=== PATIENT | male | born 1965 | race Hispanic/Latino ===

== ENCOUNTER 2017-01-08 22:23 | Observation (INO) | payer BC, MEDICAID, OTHER ==
[2017-01-08 22:28] VITALS: BMI 38.7
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
[2017-01-08] MEDS: Morphine 2 mg/ml ISec IVP STA (23:32)
[2017-01-08] MEDS: Nitroglycerin 2% Ointment Foilpak UD TOP STA (23:33)
[2017-01-08 23:56] LABS: HEMATOCRIT 37.1 % (42.0-52.0); MEAN CORPUSCULAR HEMOGLOBIN 28.2 pg (25.0-35.0); MEAN PLATELET VOLUME 9.9 fl (7.0-11.0); RED CELL DISTRIBUTION WIDTH 14.8 % (11.5-14.5); WHITE BLOOD COUNT 14.9 10^3/ul (4.5-11.0)
[2017-01-09] LABS: ALKALINE PHOSPHATASE 124 U/L (38-133); ALT/SGPT 27 U/L (7-56); AST/SGOT 30 U/L (15-59); BLOOD UREA NITROGEN 29 mg/dL (7-21); CALCIUM 9.8 mg/dL (8.4-10.5); CARBON DIOXIDE 29 mmol/L (21-33); CHLORIDE 98 mmol/L (98-107); GFR AFRICAN-AMERICAN > 60; GLUCOSE,RANDOM 104 mg/dL (70-110); POTASSIUM 3.7 mmol/L (3.6-5.0); SODIUM 139 mmol/L (132-148); TOTAL PROTEIN 8.6 g/dL (5.8-8.3)
[2017-01-09 00:01] LABS: INR 1.02 (0.93-1.08); PARTIAL THROMBOPLASTIN TIME 28.9 Seconds (23.7-30.8)
[2017-01-09 00:10] LABS: TROPONIN I 0.02 ng/mL
[2017-01-09] MEDS: Morphine 2 mg/ml ISec IVP STA ×3 (00:27→08:12)
[2017-01-09] MEDS: HYDROmorphone 2 mg/ml ISec IVP STA ×6 (01:12→08:09)
[2017-01-09 01:26] LABS: URINE BILIRUBIN NEGATIVE (NEGATIVE); URINE BLOOD SMALL (NEGATIVE); URINE GLUCOSE (UA) NEGATIVE (NEGATIVE); URINE KETONE NEGATIVE (NEGATIVE); URINE LEUKOCYTE ESTERASE NEGATIVE Leu/uL (NEGATIVE); URINE PROTEIN 100 mg/dL (<30 mg/dL)
[2017-01-09 01:33] LABS: URINE APPEARANCE SL CLOUDY (CLEAR); URINE COLOR YELLOW (YELLOW)
[2017-01-09 01:35] LABS: URINE BACTERIA FEW (NEG)
[2017-01-09] MEDS: Sodium Chloride 0.9% 1,000 ML IV STA ×2 (04:22→08:11)
[2017-01-09] MEDS ORDERED: Iodixanol 320 MG/ML 100 ML BOTTLE IV ONE (04:25)
--- NOTE | 2017-01-09 05:40 | CT ---
EXAM: CT Angiography Chest With Intravenous Contrast CLINICAL HISTORY: 51 years old, male; Signs and symptoms; Shortness of breath; Additional info: SOB TECHNIQUE: Axial computed tomographic angiography images of the chest with intravenous contrast using pulmonary embolism protocol. This CT exam was performed using one or more of the following dose reduction techniques: automated exposure control, adjustment of the mA and/or kV according to patient size, and/or use of iterative reconstruction technique. MIP reconstructed images were created and reviewed. Coronal and sagittal reformatted images were created and reviewed. CONTRAST: 96 mL of visi administered intravenously. EXAM DATE/TIME: 01/09/2017 4:16 AM COMPARISON: Recent chest radiographs of 01/08/2017 FINDINGS: LIMITATIONS: Exam is limited by mild respiratory motion artifact. PULMONARY ARTERIES: Exam is somewhat limited for the detection of pulmonary emboli secondary to respiratory motion. Allowing for this, no definite pulmonary emboli are seen. AORTA: No evidence of aortic dissection. LUNGS: No evidence of significant focal consolidation/infiltrate in the lungs, allowing for motion artifact. No evidence of diffuse pulmonary vascular congestion. PLEURAL SPACE: No pneumothorax or pleural effusions seen. HEART: No evidence of significant pericardial effusion. BONES/JOINTS: No acute bony abnormality identified. SOFT TISSUES: No acute abnormality of the visualized soft tissues identified. LYMPH NODES: No evidence of diffuse lymphadenopathy. IMPRESSION: - No definite pulmonary embolism or other significant acute abnormality in the chest. Exam is somewhat limited by motion. - See above for remaining findings.
[2017-01-09] MEDS: Morphine 4 mg/ml ISec IVP STA ×2 (05:47→08:11)
[2017-01-09] MEDS: DiphenhydrAMINE 50 mg/ml Inj IVP ONE ×2 (06:36→08:07)
[2017-01-09] MEDS ORDERED: DiphenhydrAMINE 50 mg/ml Inj IVP ONE (07:16)
--- NOTE | 2017-01-09 08:00 | RAD ---
HISTORY: chest pain COMPARISON: Comparison made with prior study 08/22/2015 FINDINGS: LUNGS: Poor inspiration with low lung volumes, mild crowded bronchovascular markings and mild bibasilar atelectasis. PLEURA: No significant pleural effusion identified, no pneumothorax apparent. CARDIOVASCULAR: Heart appears enlarged. OSSEOUS STRUCTURES: No significant abnormalities. VISUALIZED UPPER ABDOMEN: Normal. OTHER FINDINGS: None. IMPRESSION: Poor inspiration with low lung volumes, mild crowded bronchovascular markings and mild bibasilar atelectasis.
[2017-01-09] MEDS: Nitroglycerin 2% Ointment Foilpak UD TOP STA (08:12)
[2017-01-09] MEDS: Amoxicillin-Clav 875-125 mg Tab PO SCH ×2 (09:26→17:12)
[2017-01-09] MEDS: Naproxen 550 mg Tab PO SCH ×2 (09:26→17:12)
--- NOTE | 2017-01-09 10:04 | HP ---
HISTORY OF PRESENT ILLNESS: The patient is a 51-year-old man with past medical history of nonobstruc tive CAD, hypertension and opiate dependence (reports near daily 40 bags per day of heroin) who prese nted to the Emergency Department with a 1-2 day history of severe left-sided chest wall pain. The pa richardson states that prior to onset of pain. He was lifting heavy garbage cans at home when he develope d the aforementioned pain. The patient reports the pain is a 10/10 in nature and describes it as a s harp stabbing pain. He denies radiation of the pain or dyspnea associated with his chest discomfort. Given the fact that his pain did not resolve with [id number] analgesics, he presented to the Emergency Department for further evaluation. Upon arrival to the ED, he was noted to be tachycardic with a pulse of 102 and hypertensive with a blood pressure of 161/115. He received multiple doses of intravenous Dilaudid with minimal resolution of his chest discomfort. The patient also underwent a CT of the chest, abdomen and pelvis which demonstrated no acute pathology. Initial laboratory studie s also demonstrated leukocytosis with a WBC of 14.9 and a negative initial troponin. Given his persi stent pain, the patient was admitted to the remote telemetry [place] for observation, so as to rule out acute coronary syndrome. PAST MEDICAL HISTORY: As per HPI. PAST SURGICAL HISTORY: As per HPI. MEDICATIONS: Lopressor 25 mg p.o. b.i.d., Diovan 320 mg p.o. daily, aspirin 81 mg p.o. daily and Lip itor 40 mg p.o. daily. ALLERGIES: No known drug allergies. FAMILY HISTORY: Significant for hypertension. SOCIAL HISTORY: The patient reports former tobacco use and active daily alcohol use. The patient al so has a history of opiate dependence reporting a 40 bag per day use of heroin and states his last us e was approximately 2-3 weeks ago. REVIEW OF SYSTEMS: A 14*point is negative except as per HPI. PHYSICAL EXAMINATION: VITAL SIGNS: Temperature 99.6, pulse 90, blood pressure 178/60, respiratory rate 18, oxygen saturati on 100% on room air. GENERAL: No apparent distress. HEENT: EOMI, PERRLA. No scleral icterus, no conjunctival pallor. NECK: No JVD, no bruits. LUNGS: Clear to auscultation. CARDIOVASCULAR: Regular rate and rhythm. Normal S1 and S2. CHEST: Tenderness to palpation along the left sternal border and left lower costal margin. ABDOMEN: Normoactive bowel sounds, soft, nontender, nondistended. EXTREMITIES: No edema. NEUROLOGIC: Awake, alert and oriented x 3. No focal motor deficits. No tremors. SKIN: No lesions to the chest wall. LABORATORY DATA: WBC 14.9, hemoglobin 12.6, hematocrit 37, platelets 339. Chemistry reviewed and la rgely unremarkable. IMAGING STUDIES: 1. Chest x-ray, which demonstrates poor inspiration with low lung volumes, but otherwise no acute pa thology. 2. CT of the abdomen and pelvis demonstrates no acute pathology. 3. CT of the chest with IV contrast demonstrates no evidence of pulmonary embolism. ASSESSMENT: The patient is a 51-year-old man with past medical history of nonobstructive coronary ar parker disease, hypertension and opiate dependence who presented to the Emergency Department with a 1-2 day history of progressively worsening left-sided chest wall discomfort which started after heavy li fting. PLAN: 1. Chest pain, low suspicion for acute coronary syndrome. The patient's initial EKG demonstrates no acute ST-T wave changes and his initial troponin is unremarkable. Given the fact that the patient's pain is reproducible, the etiology is likely costochondritis. Will start Naprosyn [address] Ramírez of cardiology has been consulted for further evaluation and recommendations. 2. Nonobstructive coronary artery disease. Will resume Lopressor 25 mg p.o. b.i.d., aspirin 81 mg p .o. daily and Lipitor 40 mg p.o. daily. 3. Hypertension. Continue with Lopressor 25 mg p.o. b.i.d. and Diovan 320 mg p.o. daily. 4. Opiate dependence. The patient states that his last use was approximately 3 weeks ago and he cordoba s not appear to be actively withdrawing from opiates. 5. Leukocytosis, etiology may be secondary to stress response versus possible dental infection as th e patient states that approximately 3 or 4 days ago he developed significant right upper dental pain and did not seek dental evaluation. Will start Augmentin 875 mg p.o. b.i.d. 6. Prophylaxis. Gastrointestinal prophylaxis not indicated as patient is eating. Deep venous throm bosis prophylaxis not indicated as patient is ambulatory. CODE STATUS: Full code. Jayy Dodson MD cc: [id number] TT: 01/09/2017 10:03:50 en
--- NOTE | 2017-01-09 11:04 | CT ---
PROCEDURE: CT Abdomen and Pelvis without intravenous contrast HISTORY: left flank pain COMPARISON: None. TECHNIQUE: CT scan of the abdomen and pelvis was performed without administration of oral or intravenous contrast. Radiation dose: Total exam DLP = 1354.47 mGy-cm. This CT exam was performed using one or more of the following dose reduction techniques: Automated exposure control, adjustment of the mA and/or kV according to patient size, and/or use of iterative reconstruction technique. FINDINGS: LOWER THORAX: The lung bases are clear. LIVER: The liver is normal in size. No ductal dilatation. GALLBLADDER AND BILE DUCTS: The gallbladder is distended. There are small gallstones without wall thickening or pericholecystic fluid. PANCREAS: Normal in size. No gross lesion or ductal dilatation. SPLEEN: Normal in size. ADRENALS: Normal in size without discrete nodule. KIDNEYS AND URETERS: The right kidney is normal in size without nephrolithiasis or hydronephrosis. There is a 2.0 cm parapelvic cyst in the right lower pole. The left kidney is not visualized. VASCULATURE: No aortic aneurysm. BOWEL: The small bowel loops are normal in caliber. APPENDIX: Normal appendix. PERITONEUM: No free fluid. No free air. LYMPH NODES: No enlarged lymph nodes. BLADDER: Unremarkable. REPRODUCTIVE: Unremarkable. BONES: No acute fracture. There is moderate degenerative osteoarthrosis in both hip joints, worse on the right. Mild multilevel degenerative disc disease in the thoracic and lumbar spine. OTHER FINDINGS: None. IMPRESSION: Gallbladder distention and cholelithiasis. Please correlate clinically for acute cholecystitis. If clinically indicated, a right upper quadrant ultrasound may be performed. Absent left kidney. Patient's clinician was paged at 10:30 a.m. to discuss the above findings.
[2017-01-09 18:20] VITALS: RESP 20; O2SAT 98
--- NOTE | 2017-01-09 18:33 | CON ---
DATE: 01/09/2017 HISTORY OF PRESENT ILLNESS: The patient is a 51-year-old male who complains of pleuritic-like chest pain after lifting heavy garbage cans at home. The pain is worse on movement of his upper chest and on deep inspiration. PAST MEDICAL HISTORY: Notable for hypertension. The patient underwent cardiac catheterization 2 yea rs ago for again chest pain which revealed no significant coronary disease. The patient denies smoking. REVIEW OF SYSTEMS: A 14-point review of systems is free of cardiac symptomatology. PHYSICAL EXAMINATION: VITAL SIGNS: Blood pressure is 178/60, the heart rate is in the 90s. NECK: Negative JVD. LUNGS: Without rales. HEART: Reveals S1, S2. EXTREMITIES: Without edema. EKG is unremarkable. LABORATORIES: Troponins are negative so far. CT scan shows no aortic dissection. No pulmonary embolism. IMPRESSION: 1. Atypical chest pain, likely chest wall pain. 2. The patient was started on nonsteroidal anti-inflammatories. 3. History of hypertension. 4. Obesity. PLAN: Given these findings, we will obtain serial troponins. We will start the patient on clonidine for better blood pressure control. Osbaldo Ramírez MD cc: [id number] TT: 01/09/2017 18:32:53 Confirmation # [id number] Dictation # [id number]
--- NOTE | 2017-01-09 22:40 | CARD ---
APPROVED REPORT EKG Measurement Heart [id number] 164P56 [id number] <Conclusion> Normal sinus rhythm Minimal voltage criteria for LVH, may be normal variant Borderline ECG
--- NOTE | 2017-01-09 22:47 | CARD ---
APPROVED REPORT EKG Measurement Heart [id number] <Conclusion> Normal sinus rhythm Minimal voltage criteria for LVH, may be normal variant ST abnormality, possible digitalis effect Abnormal QRS-T angle, consider primary T wave abnormality Abnormal ECG
[2017-01-10] MEDS ORDERED: Naproxen 550 mg Tab PO STA (00:53)
--- NOTE | 2017-01-10 06:40 | CP.PCM.PN ---
Subjective - Date & Time of Evaluation Date of Evaluation: 01/10/17 Time of Evaluation: 06:40 - Subjective Subjective: S:Earlier , Naprosyn 550 mg PO was ordered for right sided chest pain. Came to see patient. He is in rest room, talked to me while inside restroom. States that he feels better now. Has no complaints now. Pertinent medical record was reviewed. O: Alert, oriented. Last Vital Signs 3 Temp 98.4 F 01/09/17 16:00 Pulse 84 01/09/17 17:13 Resp 20 01/09/17 16:00 BP 160/100 H 01/09/17 17:13 Pulse Ox 98 01/09/17 16:00 A:Right sided chest pain. P: Naprosyn 550 mg PO was ordered which helped him. Objective - Vital Signs/Intake and Output Vital Signs (last 24 hours): Temp Pulse Resp BP Pulse Ox 98.4 F 84 20 160/100 H 98 01/09/17 16:00 01/09/17 17:13 01/09/17 16:00 01/09/17 17:13 01/09/17 16:00 Intake and Output: 01/09/17 01/10/17 18:59 06:59 Intake Total 300 960 Output Total 200 Balance 100 960 - Medications Medications: Current Medications Amoxicillin/Clavulanate Potassium (Augmentin 875 Mg-125 Mg Tab) 1 tab PO BID [facility] PRN Reason: Protocol Last Admin: 01/09/17 17:12 Dose: 1 tab Aspirin (Aspirin Chewable) 81 mg PO DAILY [facility] Last Admin: 01/09/17 09:26 Dose: 81 mg Atorvastatin Calcium (Lipitor) 40 mg PO DAILY [facility] Last Admin: 01/09/17 09:27 Dose: 40 mg Clonidine HCl (Catapres) 0.1 mg PO BID [facility] Last Admin: 01/09/17 17:13 Dose: 0.1 mg Metoprolol Tartrate (Lopressor) 25 mg PO BID [facility] Last Admin: 01/09/17 17:12 Dose: 25 mg Naproxen (Anaprox Ds) 550 mg PO BID [facility] Last Admin: 01/09/17 17:12 Dose: 550 mg Valsartan (Diovan) 320 mg PO DAILY [facility] Last Admin: 01/09/17 10:17 Dose: 320 mg - Labs Labs: PT 11.0 Seconds (9.9-11.8) 01/08/17 22:40 INR 1.02 (0.93-1.08) 01/08/17 22:40 APTT 28.9 Seconds (23.7-30.8) 01/08/17 22:40
--- NOTE | 2017-01-10 08:45 | PN ---
DATE: 01/10/2017 SUBJECTIVE: The patient seen and examined at bedside on the general medical [place]. No acute events o vernight. This morning, the patient states near resolution of his chest wall pain, offers no complai nts and states he is ready to go home. OBJECTIVE: VITAL SIGNS: Temperature 97.6, pulse 107, blood pressure 161/101, respiratory rate 20, oxygen satura tion 98% on room air. GENERAL: No apparent distress. HEENT: PERRL. EOMI. No scleral icterus. No conjunctival pallor. NECK: No JVD, no bruits. LUNGS: Clear to auscultation. CARDIOVASCULAR: Regular rate and rhythm. Normal S1 and S2. CHEST: Mild tenderness to palpation to chest wall along the left sternal border and left lower alvarez l margin (significantly improved). ABDOMEN: Normoactive bowel sounds, soft, nontender, nondistended. EXTREMITIES: No edema. NEUROLOGIC: Awake, alert and oriented x 3. No focal motor deficits. No tremors. LABORATORY DATA: Morning labs are pending. Troponin unremarkable x 2. ASSESSMENT: The patient is a 51-year-old male with past medical history of nonobstructive coronary a rtery disease, hypertension and opiate dependence, who presented to the Emergency Department with a 1 -2 day history of progressively worsening left-sided chest wall discomfort which started after heavy lifting. PLAN: 1. Atypical chest pain, low suspicion for acute coronary syndrome. Troponins have been negative x 2 and EKG is unremarkable. Input from Dr. Ramírez noted and greatly appreciated. Etiology of the pain i s likely costochondritis and the pain has significantly improved with Naprosyn. 2. Nonobstructive CAD. We will increase Lopressor to 50 mg p.o. b.i.d. Continue with aspirin 81 mg p.o. daily and Lipitor at 40 mg p.o. daily. 3. Hypertension. Blood pressure remains elevated. This may be partially due to some opiate withdra wal. As above, we will increase Lopressor to 50 mg p.o. b.i.d. and continue with Diovan 320 mg p.o. daily. 4. Opiate dependence. The patient has again been extensively counseled on the adverse health effect s of opiate use and has been advised to seek outpatient rehabilitation. 5. Dental abscess. The patient reports improvement since administration of Augmentin. The patient to complete a 7-day course of antibiotics. 6. Prophylaxis. GI prophylaxis not indicated as the patient is eating. DVT prophylaxis not indicat ed as patient is ambulatory. 7. Disposition: The patient for discharge to home today. CODE STATUS: Full code. Jayy Dodson MD cc: [id number] TT: 01/10/2017 08:44:31 Confirmation # [id number] Dictation # [id number]
[2017-01-10 09:01] LABS: ADD MANUAL DIFF? NO
[2017-01-10 09:12] LABS: BASO # 0.04 K/mm3 (0.0-2.0); BASO % 0.2 % (0.0-3.0); EOS % 0.2 % (1.5-5.0); GRAN # 15.31 (1.4-6.5); GRAN % 84.8 % (50.0-68.0); HEMATOCRIT 36.2 % (42.0-52.0); LYMPH # 1.3 (1.2-3.4); LYMPH % 7.4 % (22.0-35.0); MEAN CELL VOLUME 83.2 fL (80.0-105.0); MEAN CORPUSCULAR HGB CONC 33.7 g/dl (31.0-37.0); MEAN PLATELET VOLUME 10.3 fl (7.0-11.0); MONO # 1.3 (0.1-0.6); MONO % 7.4 % (1.0-6.0); PLATELET COUNT 325 10^3/uL (120.0-450.0); RED CELL DISTRIBUTION WIDTH 14.9 % (11.5-14.5); WHITE BLOOD COUNT 18.1 10^3/ul (4.5-11.0)
[2017-01-10 09:24] LABS: BILIRUBIN,TOTAL 1.2 mg/dL (0.2-1.3); CALCIUM 9.8 mg/dL (8.4-10.5); POTASSIUM 3.7 mmol/L (3.6-5.0); TOTAL PROTEIN 8.4 g/dL (5.8-8.3)
[2017-01-10] MEDS: Naproxen 550 mg Tab PO SCH ×2 (10:08→17:22)
[2017-01-10] MEDS: Amoxicillin-Clav 875-125 mg Tab PO SCH ×2 (10:08→17:21)
[2017-01-10 16:47] VITALS: BP 113/60; PULSE 79; TEMP 98.2
--- NOTE | 2017-01-16 11:08 | DS ---
ADMITTING DIAGNOSIS: Chest pain, rule out acute coronary syndrome. DISCHARGE DIAGNOSIS: Costochondritis. SECONDARY DIAGNOSES: Nonobstructive coronary artery disease, hypertension, dental abscess, opiate dependence. CONSULTATIONS: Dr. Ramírez (cardiology). IMAGING STUDIES: 1. CT of the chest with IV contrast, which demonstrated no evidence of pulmonary embolism. 2. CT of the abdomen and pelvis, which demonstrated no acute pathology. HISTORY OF PRESENT ILLNESS: The patient is a 51-year-old man with past medical history of nonobstructive CAD, hypertension and opiate dependence (reports near daily 40 bags per day of heroin) who presented to the Emergency Department with a 1-2 day history of severe left-sided chest wall pain. The patient states that prior to the onset of pain, he was lifting heavy garbage cans at home when he developed the aforementioned pain. The patient also reports that the pain is a 10/10 in nature, described as sharp and stabbing. He denied radiation of pain or dyspnea associated with the symptoms. Given the fact that the pain did not resolve with [id number] analgesics, he presented to the Emergency Department for further evaluation. Upon arrival to the ED, he was noted to be tachycardic with a pulse of 102 and hypertensive with a blood pressure of 161/ 115. He received multiple doses of IV Dilaudid with minimal resolution of chest discomfort. He also underwent a CT of the chest, abdomen and pelvis which demonstrated no acute pathology. He was subsequently admitted to the telemetry [place] for continued observation so as to rule out an acute coronary syndrome. HOSPITAL COURSE: Upon admission to the telemetry [place], the patient was started on Naprosyn given that the etiology of his chest discomfort was likely secondary to musculoskeletal pain. The patient was also evaluated by Dr. Ramírez of cardiology who agreed that the etiology was unlikely cardiac in nature. The patient's cardiac enzymes were cycled for 3 sets, all of which were unremarkable , and by hospital day #2, he reported significant improvement in his chest wall discomfort with administration of Naprosyn. Also of note, the patient was noted to complain of severe dental pain during his hospital stay and examination demonstrated a left-sided dental abscess. The patient was started on oral Augmentin and was scheduled to complete a 2-week course. CONDITION: Good, improved. DISPOSITION: To home. DISCHARGE MEDICATIONS: Lopressor 50 mg p.o. b.i.d., Diovan 320 mg p.o. daily, aspirin 81 mg p.o. daily, Lipitor 40 mg p.o. daily, Naprosyn 550mg p.o. b.i.d. and Augmentin 875 mg p.o. b.i.d. to complete a 14-day course. DISCHARGE INSTRUCTIONS: The patient was advised that if he has any recurrence of his symptoms to present to the nearest Emergency Department or to his PMD immediately. The patient was also advised to avoid any heavy lifting for the next 7-10 days. FOLLOWUP: The patient to follow up with his PMD within 1 week of discharge. Jayy Dodson MD cc: [phone] TT: 01/16/2017 11:08:04 ken ROMERO
== END 2017-01-10 19:00 | disposition home or self-care (01) ==
LOC: ED 22:23 → ERH 01-09 05:54 → 3RNO 01-09 11:36
PROVIDERS: ADMIT Student in an Organized Health Care Education/Training Program; ATTEND Student in an Organized Health Care Education/Training Program
DX: R07.89 Other chest pain (principal); M94.0 Chondrocostal junction syndrome [Tietze]; I25.10 Atherosclerotic heart disease of native coronary artery without angina pectoris; I10 Essential (primary) hypertension; E66.9 Obesity, unspecified; F11.20 Opioid dependence, uncomplicated; Z87.891 Personal history of nicotine dependence; Z72.89 Other problems related to lifestyle; X50.0XXA Overexertion from strenuous movement or load, initial encounter; D72.829 Elevated white blood cell count, unspecified; K04.7 Periapical abscess without sinus; Z68.38 Body mass index [BMI] 38.0-38.9, adult; K21.9 Gastro-esophageal reflux disease without esophagitis; Q60.0 Renal agenesis, unilateral; R31.9 Hematuria, unspecified; R30.0 Dysuria; M54.9 Dorsalgia, unspecified; Z79.82 Long term (current) use of aspirin; Z79.899 Other long term (current) drug therapy; Z82.49 Family history of ischemic heart disease and other diseases of the circulatory system; Z87.01 Personal history of pneumonia (recurrent)
CPT/HCPCS: 36415; 71010; 71275; 74176; 80053; 81001; 82550; 83615; 84484; 85025; 85027; 85378; 85610; 85730; 93005; 96374; 96375; 96376; 99285; G0378; J1170; J1200; J2270; J2405; J7040; Q9967

== ENCOUNTER 2017-02-06 13:59 | Inpatient (IN) | payer MEDICAID ==
[2017-02-06] MEDS ORDERED: Naloxone 0.4 mg/ml Inj (Adult) ONE ×3 (14:04→14:06)
[2017-02-06 14:10] VITALS: BMI 40.8
[2017-02-06] MEDS ORDERED: Sodium Chloride 0.9% 1,000 ML IV STA ×2 (14:19→15:09)
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
[2017-02-06 14:26] LABS: VENOUS BLOOD GAS BASE EXCESS -16.5 mmol/L (0.0-2.0); VENOUS BLOOD GAS PO2 107 mm/Hg (30-55)
[2017-02-06 14:28] LABS: VENOUS BLOOD PH 6.87 (7.32-7.43)
[2017-02-06] MEDS ORDERED: Sodium Bicarbonate 8.4% 150 MEQ in Dextrose 5%/0.45% NS 1,000 ML IV SCH (14:30)
[2017-02-06] MEDS ORDERED: Piperacillin/Tazobact 3.375 gm 100 ML IVPB STA (14:31)
[2017-02-06] MEDS ORDERED: Vancomycin 1gm in NS 250ml 1 GM/250 ML BAG IVPB STA (14:32)
[2017-02-06 14:35] LABS: INR 1.19 (0.93-1.08); PARTIAL THROMBOPLASTIN TIME 35.4 Seconds (23.7-30.8); PROTHROMBIN TIME 12.9 Seconds (9.9-11.8)
[2017-02-06 14:36] LABS: ALB/GLOB RATIO 1.2 (1.1-1.8); ALBUMIN 3.5 g/dL (3.0-4.8); CALCIUM 10.2 mg/dL (8.4-10.5); MAGNESIUM 2.9 mg/dL (1.7-2.2)
[2017-02-06 14:41] LABS: ACETAMINOPHEN < 10.0 ug/ml (10.0-20.0); SALICYLATE < 1 mg/dL (2.0-20.0)
[2017-02-06 14:44] LABS: BASO # 0.07 K/mm3 (0.0-2.0); BASO % 0.4 % (0.0-3.0); EOS # 0.2 (0.0-0.7); EOS % 1.2 % (1.5-5.0); GRAN # 11.05 (1.4-6.5); GRAN % 62.6 % (50.0-68.0); HEMOGLOBIN 10.1 gm/dL (14.0-18.0); LYMPH # 5.2 (1.2-3.4); LYMPH % 29.3 % (22.0-35.0); MEAN CELL VOLUME 88.9 fL (80.0-105.0); MEAN CORPUSCULAR HEMOGLOBIN 27.3 pg (25.0-35.0); MEAN CORPUSCULAR HGB CONC 30.7 g/dl (31.0-37.0); MEAN PLATELET VOLUME 9.7 fl (7.0-11.0); MONO # 1.1 (0.1-0.6); MONO % 6.5 % (1.0-6.0); PLATELET COUNT 261 10^3/uL (120.0-450.0); RED CELL DISTRIBUTION WIDTH 14.7 % (11.5-14.5); WHITE BLOOD COUNT 17.7 10^3/ul (4.5-11.0)
[2017-02-06 14:47] LABS: TROPONIN I 0.05 ng/mL
[2017-02-06 14:48] LABS: ARTERIAL BLOOD GAS HCO3 20.6 mmol/L (21-28); ARTERIAL BLOOD GAS HEMOGLOBIN 10.7 g/dL (11.7-17.4); ARTERIAL BLOOD GAS O2 CAPACITY 14.7 mL/dl (16-24); ARTERIAL BLOOD GAS O2 CONTENT 14.1 ML/dl (15-23); ARTERIAL BLOOD GAS O2 SAT 95.9 % (95-98); ARTERIAL BLOOD GAS PCO2 76 mm/Hg (35-45); ARTERIAL BLOOD GAS TCO2 22.9 mmol.L (22-28)
[2017-02-06 14:49] LABS: ARTERIAL BLOOD GAS PH 7.04 (7.35-7.45)
--- NOTE | 2017-02-06 15:02 | RAD ---
HISTORY: code COMPARISON: CT angio chest PE study 01/09/2017 FINDINGS: LUNGS: Interval endotracheal insertion- tip 1.8 cm from the argelia. Projecting over the left heart patchy opacity possible infiltrates and or atelectasis are considerations. Small left pleural effusion probable. No pneumothorax seen the lung volumes are shallow PLEURA: As above CARDIOVASCULAR: Mild cardiomegaly suspect. Central pulmonary vasculature probably top-normal given the shallow inspiration and portable supine technique OSSEOUS STRUCTURES: Thoracic spondylosis VISUALIZED UPPER ABDOMEN: Normal. OTHER FINDINGS: None. IMPRESSION: Interval endotracheal tube insertion tip 1.8 cm from the argelia. Patchy opacities with possible air bronchograms dict of the left lung base left infrahilar location on this frontal view. . Patchy infiltrates. Patchy subsegmental atelectatic changes considerations. Small left pleural effusion probable
[2017-02-06] MEDS ORDERED: NOREPINEPHRINE BIT/0.9 % NACL 4 MG/250 ML BAG IV ONE (15:09)
[2017-02-06 15:16] LABS: PH,URINE 5.5 (4.7-8.0); URINE BILIRUBIN NEGATIVE (NEGATIVE); URINE BLOOD TRACE-INTACT (NEGATIVE); URINE GLUCOSE (UA) NEGATIVE (NEGATIVE); URINE LEUKOCYTE ESTERASE NEGATIVE Leu/uL (NEGATIVE); URINE NITRATE NEGATIVE (NEGATIVE); URINE PROTEIN NEGATIVE mg/dL (<30 mg/dL); URINE UROBILINOGEN 0.2 E.U./dL (<1 E.U./dL)
[2017-02-06 15:17] LABS: URINE APPEARANCE CLEAR (CLEAR)
[2017-02-06] MEDS: NOREPINEPHRINE BIT/0.9 % NACL 4 MG/250 ML BAG IV PRN (15:26)
[2017-02-06 15:32] LABS: BARBITURATES, UR NEGATIVE (NEGATIVE); BENZODIAZEPINES, UR NEGATIVE (NEGATIVE); OPIATES, UR POSITIVE (NEGATIVE); PHENCYCLIDINE, UR NEGATIVE (NEGATIVE)
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
[2017-02-06 16:37] LABS: URINE BACTERIA LARGE (NEG); URINE COLOR YELLOW (YELLOW); URINE EPITHELIAL CELLS 0 - 2 /hpf (0-5); URINE HYALINE CAST 0 - 2 /hpf; URINE RBC 0 - 2 /hpf (0-2); URINE URIC ACID CRYSTALS TRACE /hpf; URINE WBC 0 - 2 /hpf (0-6)
--- NOTE | 2017-02-06 16:57 | CT ---
PROCEDURE: CT HEAD WITHOUT CONTRAST. HISTORY: code COMPARISON: None available. TECHNIQUE: Axial computed tomography images were obtained through the head/brain without intravenous contrast. Radiation dose: Total exam DLP = 1645 mGy-cm. This CT exam was performed using one or more of the following dose reduction techniques: Automated exposure control, adjustment of the mA and/or kV according to patient size, and/or use of iterative reconstruction technique. FINDINGS: HEMORRHAGE: No intracranial hemorrhage. BRAIN: Loss of the separation between the hazel and white matter; diffuse anoxic brain injury is not excluded. No atrophy or chronic microvascular ischemic changes. VENTRICLES: Unremarkable. No hydrocephalus. CALVARIUM: Unremarkable. PARANASAL SINUSES: Unremarkable as visualized. No significant inflammatory changes. MASTOID AIR CELLS: Unremarkable as visualized. No inflammatory changes. OTHER FINDINGS: None. IMPRESSION: Loss of the separation between the hazel and white matter; diffuse anoxic brain injury is not excluded. No acute hemorrhage.
[2017-02-06 18:24] LABS: ARTERIAL BLOOD GAS HCO3 22.4 mmol/L (21-28); ARTERIAL BLOOD GAS O2 SAT 99.6 % (95-98); ARTERIAL BLOOD GAS PCO2 37 mm/Hg (35-45); ARTERIAL BLOOD GAS PH 7.39 (7.35-7.45); ARTERIAL BLOOD GAS TCO2 23.5 mmol.L (22-28)
[2017-02-06] MEDS ORDERED: Heparin25000 units/250ml 1/2NS 25,000 UNITS/250 ML BAG IV SCH (18:30)
[2017-02-06] MEDS ORDERED: Pneumococcal 23-Valent Vaccine IM ONE (18:36)
[2017-02-06 18:59] LABS: CREATININE,RANDOM URINE 18 mg/dL
[2017-02-06] MEDS: Sodium Chloride 0.9% 1,000 ML IV SCH (19:04)
--- NOTE | 2017-02-06 19:48 | CARD ---
APPROVED REPORT EKG Measurement Heart [id number] MD [id number] <Conclusion> Normal sinus rhythm RSR' or QR pattern in V1 suggests right ventricular conduction delay ST & T wave abnormality, consider inferior ischemia Abnormal ECG
[2017-02-06 21:27] LABS: VENOUS BLOOD GAS BASE EXCESS -1.5 mmol/L (0.0-2.0); VENOUS BLOOD GAS PO2 35 mm/Hg (30-55); VENOUS BLOOD PH 7.33 (7.32-7.43)
[2017-02-07] MEDS: Sodium Chloride 0.9% 1,000 ML IV SCH ×2 (05:34→20:03)
[2017-02-07 05:43] LABS: ARTERIAL BLOOD GAS HCO3 20.8 mmol/L (21-28); ARTERIAL BLOOD GAS O2 CAPACITY 17.8 mL/dl (16-24); ARTERIAL BLOOD GAS O2 CONTENT 17.1 ML/dl (15-23); ARTERIAL BLOOD GAS O2 SAT 95.8 % (95-98); ARTERIAL BLOOD GAS PCO2 32 mm/Hg (35-45); ARTERIAL BLOOD GAS PH 7.42 (7.35-7.45); ARTERIAL BLOOD GAS TCO2 21.8 mmol.L (22-28)
[2017-02-07] MEDS: Piperacillin/Tazobact 2.25gm 2.25 GM/100 ML BAG IVPB SCH ×2 (05:43)
[2017-02-07 06:37] LABS: MEAN CELL VOLUME 83.8 fL (80.0-105.0); MEAN CORPUSCULAR HGB CONC 33.4 g/dl (31.0-37.0); MEAN PLATELET VOLUME 9.7 fl (7.0-11.0); PLATELET COUNT 301 10^3/uL (120.0-450.0); RBC 4.64 10^6/uL (3.5-6.1); RED CELL DISTRIBUTION WIDTH 15.2 % (11.5-14.5); WHITE BLOOD COUNT 14.5 10^3/ul (4.5-11.0)
[2017-02-07 06:54] LABS: ALB/GLOB RATIO 1.1 (1.1-1.8); ALBUMIN 3.6 g/dL (3.0-4.8); CALCIUM 8.1 mg/dL (8.4-10.5); MAGNESIUM 2.2 mg/dL (1.7-2.2)
[2017-02-07 08:17] LABS: CK MB% 1.9 % (2.5-3.0); CK-MB 55.6 ng/mL (0.0-3.6)
[2017-02-07 08:19] LABS: TROPONIN I 1.37 ng/mL
[2017-02-07 08:33] LABS: BAND 7 % (0-2); NEUTROPHIL 80 % (50.0-70.0)
[2017-02-07 08:34] LABS: ANISOCYTOSIS 1+; LYMPHOCYTE 9 % (22.0-35.0); MICROCYTOSIS SLIGHT; MONOCYTE 4 % (1.0-6.0); PLATELET ESTIMATE NORMAL (NORMAL)
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
--- NOTE | 2017-02-07 09:54 | RAD ---
PROCEDURE: Portable chest HISTORY: OGT insertion COMPARISON: TECHNIQUE: Two views FINDINGS: The endotracheal tube and nasogastric tube are in satisfactory position IMPRESSION: The endotracheal tube and nasogastric tube are in satisfactory position
[2017-02-07] MEDS ORDERED: Vancomycin 1gm in NS 250ml 1 GM/250 ML BAG IVPB SCH (10:00)
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
[2017-02-07] MEDS: NOREPINEPHRINE BIT/0.9 % NACL 4 MG/250 ML BAG IV PRN ×2 (10:30→17:28)
--- NOTE | 2017-02-07 10:32 | CP.CCUPN ---
<Lidia Vega - Last Filed: 02/07/17 11:09> CCU Subjective - Physician Review Subjective (Free Text): 02/07/17 10:29 Pt breath on his own at 12. U/O overnight 700/12 hrs. by bedside CCU Objective - Vital Signs / Intake & Output Vital Signs (Last 4 hours): Vital Signs Temp Pulse BP Pulse Ox 02/07/17 08:50 99.1 F 91 H 93 L 02/07/17 08:45 99.1 F 91 H 112/76 93 L 02/07/17 08:40 99.1 F 91 H 93 L 02/07/17 08:30 99.1 F 91 H 109/80 93 L 02/07/17 08:20 99.1 F 90 94 L 02/07/17 08:15 99.1 F 90 111/78 94 L 02/07/17 08:10 99.1 F 89 94 L 02/07/17 08:00 99.1 F 89 103/73 94 L 02/07/17 07:50 99.1 F 88 94 L 02/07/17 07:45 99.1 F 94 H 111/66 94 L 02/07/17 07:40 99.1 F 88 94 L 02/07/17 07:30 99.1 F 88 92/69 L 94 L 02/07/17 07:20 99.1 F 88 94 L 02/07/17 07:15 99.1 F 89 102/50 L 94 L 02/07/17 07:14 99.1 F 89 86/57 L 95 02/07/17 07:10 99.1 F 89 95 02/07/17 07:04 88 02/07/17 07:00 99.1 F 89 89/50 L 94 L 02/07/17 06:50 99.1 F 91 H 94 L 02/07/17 06:45 99.1 F 89 96/63 L 93 L 02/07/17 06:40 99.1 F 89 93 L 02/07/17 06:30 99.1 F 88 103/67 93 L Intake and Output (Last 8hrs): Intake & Output 02/06/17 02/07/17 02/07/17 22:59 06:59 14:59 Intake Total 2750 1830 224.9 Output Total 675 730 Balance 2075 1100 224.9 Weight 285 lb Intake: IV 1760 224.9 Right Femoral 1760 Other 2750 70 Output: Urine 675 30 Urethral (Garcia) 675 30 Stool 700 Other: Voiding Method Toilet Indwelling Catheter # Bowel Movements 1 3 - Physical Exam Physical Exam Limitations: Positive for: Other Head: Positive for: Atraumatic, Normocephalic Pupils: Positive for: Non-Reactive, Other (4mm) Conjunctiva: Negative for: Injected, Icteric Mouth: Positive for: Moist Mucous Membranes Respiratory/Chest: Positive for: Rales. Negative for: Wheezes, Rhonchi Cardiovascular: Positive for: Regular Rate and Rhythm, Normal S1, S2 Abdomen: Positive for: Distention, Normal Bowel Sounds, Other (rectal tube in place - dark watery drainage; NG tube on LIS, 650 bilous gastric content) Rectal: Positive for: Occult Blood, Melena Upper Extremity: Positive for: Edema Lower Extremity: Positive for: Edema. Negative for: NORMAL PULSES (diminished DP +1 b/l) Skin: Positive for: Other (cool, dry) Other physical findings (Free Text): intubated off sedation - Medications Active Medications: Active Medications Generic Name Dose Route Start Last Admin Trade Name Freq PRN Reason Stop Dose Admin Aspirin 325 mg 02/07/17 10:00 Aspirin PO DAILY CHUCHO Heparin Sodium (Porcine) 5,000 units 02/06/17 22:00 02/07/17 05:34 Heparin SC 5,000 units Q8 CHUCHO Administration Protocol NOREPINEPHRINE BIT/0.9 % NACL 4 mg in 250 mls @ 15 mls/hr 02/06/17 15:09 07:15 Levophed 4 Mg/ 250 Ml Ns Premixed IV 8 mcg/min .[id number] PRN 30 mls/hr TITRATE PER MD ORDER Titration Protocol 4 MCG/MIN Vancomycin HCl 1 gm in 250 mls @ 167 mls/hr 02/07/17 10:00 02/07/17 09:45 Vancomycin 1gm IVPB 167 mls/hr DAILY CHUCHO Administration Protocol Sodium Chloride 1,000 mls @ 100 mls/hr 02/06/17 19:00 02/07/17 05:34 Sodium Chloride 0.9% IV 100 mls/hr .Q10H CHUCHO Administration Lorazepam 1 mg 02/06/17 18:19 02/06/17 22:29 Ativan IVP 1 mg Q2H PRN Administration Seizure activity Protocol Pantoprazole Sodium 40 mg 02/07/17 10:00 02/07/17 09:45 Protonix Inj IVP 40 mg DAILY CHUCHO Administration - Patient Studies Lab Studies: Lab Studies 02/07/17 02/07/17 02/07/17 Range/Units 06:14 06:14 06:14 WBC 14.5 H (4.5-11.0) 10^3/ul RBC 4.64 (3.5-6.1) 10^6/uL Hgb 13.0 L (14.0-18.0) gm/dL Hct 38.9 L (42.0-52.0) % MCV 83.8 (80.0-105.0) fL MCH 28.0 (25.0-35.0) pg MCHC 33.4 (31.0-37.0) g/dl RDW 15.2 H (11.5-14.5) % Plt Count 301 (120.0-450.0) 10^3/uL MPV 9.7 (7.0-11.0) fl Neutrophils % (Manual) 80 H (50.0-70.0) % Band Neutrophils % 7 H (0-2) % Lymphocytes % (Manual) 9 L (22.0-35.0) % Monocytes % (Manual) 4 (1.0-6.0) % Platelet Evaluation Normal (NORMAL) Anisocytosis (manual) 1+ Microcytosis (manual) Slight pCO2 (35-45) mm/Hg pO2 (80-100) mm/Hg HCO3 (21-28) mmol/L ABG pH (7.35-7.45) ABG Total CO2 (22-28) mmol.L ABG O2 Saturation (95-98) % ABG O2 Content (15-23) ML/dl ABG Base Excess (-2.0-3.0) mmol/L ABG Hemoglobin (11.7-17.4) g/dL ABG Carboxyhemoglobin (0.5-1.5) % POC ABG HHb (Measured) (0-5) % ABG Methemoglobin (0.0-3.0) % ABG O2 Capacity (16-24) mL/dl ABG Potassium (3.6-5.2) mmol/L VBG pH (7.32-7.43) VBG pCO2 (40-60) VBG HCO3 (21-28) mmol/l VBG Total CO2 (22-28) mmol.L VBG O2 Sat (Calc) (40-65) % VBG Base Excess (0.0-2.0) mmol/L VBG Potassium (3.6-5.2) mmol/L Hgb O2 Saturation (95.0-98.0) % Sodium 143 (132-148) mmol/L Chloride 107 (98-107) mmol/L Glucose (75-110) mg/dl Lactate (0.7-2.1) mmol/L Mechanical Rate FiO2 % Tidal Volume PEEP Potassium 3.8 (3.6-5.0) mmol/L Carbon Dioxide 23 (21-33) mmol/L Anion Gap 17 (10-20) BUN 49 H (7-21) mg/dL Creatinine 4.7 H (0.5-1.4) mg/dL Est GFR ( Amer) 16 Est GFR (Non-Af Amer) 13 Random Glucose 128 H (70-110) mg/dL Calcium 8.1 L (8.4-10.5) mg/dL Phosphorus 4.8 H (2.5-4.5) mg/dL Magnesium 2.2 (1.7-2.2) mg/dL Total Bilirubin 0.7 (0.2-1.3) mg/dL AST 357 H (15-59) U/L ALT 249 H (7-56) U/L Alkaline Phosphatase 107 (38-133) U/L Lactate Dehydrogenase 3017 H (333-699) U/L Total Creatine Kinase 3003 H (35-230) U/L CK-MB (CK-2) 55.6 H (0.0-3.6) ng/mL CK-MB (CK-2) % 1.9 L (2.5-3.0) % Troponin I 1.37 H* D ng/mL Total Protein 6.9 (5.8-8.3) g/dL Albumin 3.6 (3.0-4.8) g/dL Globulin 3.4 gm/dL Albumin/Globulin Ratio 1.1 (1.1-1.8) TSH 3rd Generation 0.5 (0.46-4.68) MIU/ml Arterial Blood Potassium (3.6-5.2) mmol/L Venous Blood Potassium (3.6-5.2) mmol/L Urine Color (YELLOW) Urine Appearance (CLEAR) Urine pH (4.7-8.0) Ur Specific [place] (1.005-1.035) Urine Protein (<30 mg/dL) mg/dL Urine Glucose (UA) (NEGATIVE) mg/dL Urine Ketones (NEGATIVE) mg/dL Urine Blood (NEGATIVE) Urine Nitrate (NEGATIVE) Urine Bilirubin (NEGATIVE) Urine Urobilinogen (<1 E.U./dL) E.U./dL Ur Leukocyte Esterase (NEGATIVE) Emma/uL Urine RBC (0-2) /hpf Urine WBC (0-6) /hpf Ur Epithelial Cells (0-5) /hpf Uric Acid Crystals /hpf Urine Bacteria (NEG) Hyaline Casts /hpf Ur Random Creatinine mg/dL Ur Random Sodium meq/L Stool Occult Blood (NEGATIVE) Urine Opiates Screen (NEGATIVE) Urine Methadone Screen (NEGATIVE) Ur Barbiturates Screen (NEGATIVE) Ur Phencyclidine Scrn (NEGATIVE) Ur Amphetamines Screen (NEGATIVE) U Benzodiazepines Scrn (NEGATIVE) U Oth Cocaine Metabols (NEGATIVE) U Cannabinoids Screen (NEGATIVE) 02/07/17 02/06/17 02/06/17 Range/Units 05:30 21:18 18:38 WBC (4.5-11.0) 10^3/ul RBC (3.5-6.1) 10^6/uL Hgb (14.0-18.0) gm/dL Hct (42.0-52.0) % MCV (80.0-105.0) fL MCH (25.0-35.0) pg MCHC (31.0-37.0) g/dl RDW (11.5-14.5) % Plt Count (120.0-450.0) 10^3/uL MPV (7.0-11.0) fl Neutrophils % (Manual) (50.0-70.0) % Band Neutrophils % (0-2) % Lymphocytes % (Manual) (22.0-35.0) % Monocytes % (Manual) (1.0-6.0) % Platelet Evaluation (NORMAL) Anisocytosis (manual) Microcytosis (manual) pCO2 32 L (35-45) mm/Hg pO2 65.0 L 35 (80-100) mm/Hg HCO3 20.8 L (21-28) mmol/L ABG pH 7.42 (7.35-7.45) ABG Total CO2 21.8 L (22-28) mmol.L ABG O2 Saturation 95.8 (95-98) % ABG O2 Content 17.1 (15-23) ML/dl ABG Base Excess -2.8 L (-2.0-3.0) mmol/L ABG Hemoglobin 13.0 (11.7-17.4) g/dL ABG Carboxyhemoglobin 1.7 H (0.5-1.5) % POC ABG HHb (Measured) 4.1 (0-5) % ABG Methemoglobin 0.9 (0.0-3.0) % ABG O2 Capacity 17.8 (16-24) mL/dl ABG Potassium (3.6-5.2) mmol/L VBG pH 7.33 (7.32-7.43) VBG pCO2 47.0 (40-60) VBG HCO3 24.8 (21-28) mmol/l VBG Total CO2 26.2 (22-28) mmol.L VBG O2 Sat (Calc) 69.2 H (40-65) % VBG Base Excess -1.5 L (0.0-2.0) mmol/L VBG Potassium 4.0 (3.6-5.2) mmol/L Hgb O2 Saturation 93.3 L (95.0-98.0) % Sodium 141.0 (132-148) mmol/L Chloride 105.0 (98-107) mmol/L Glucose 109 (75-110) mg/dl Lactate 2.2 H (0.7-2.1) mmol/L Mechanical Rate FiO2 50.0 21.0 % Tidal Volume PEEP Potassium (3.6-5.0) mmol/L Carbon Dioxide (21-33) mmol/L Anion Gap (10-20) BUN (7-21) mg/dL Creatinine (0.5-1.4) mg/dL Est GFR ( Amer) Est GFR (Non-Af Amer) Random Glucose (70-110) mg/dL Calcium (8.4-10.5) mg/dL Phosphorus (2.5-4.5) mg/dL Magnesium (1.7-2.2) mg/dL Total Bilirubin (0.2-1.3) mg/dL AST (15-59) U/L ALT (7-56) U/L Alkaline Phosphatase (38-133) U/L Lactate Dehydrogenase (333-699) U/L Total Creatine Kinase (35-230) U/L CK-MB (CK-2) (0.0-3.6) ng/mL CK-MB (CK-2) % (2.5-3.0) % Troponin I ng/mL Total Protein (5.8-8.3) g/dL Albumin (3.0-4.8) g/dL Globulin gm/dL Albumin/Globulin Ratio (1.1-1.8) TSH 3rd Generation (0.46-4.68) MIU/ml Arterial Blood Potassium (3.6-5.2) mmol/L Venous Blood Potassium 4.0 (3.6-5.2) mmol/L Urine Color (YELLOW) Urine Appearance (CLEAR) Urine pH (4.7-8.0) Ur Specific [place] (1.005-1.035) Urine Protein (<30 mg/dL) mg/dL Urine Glucose (UA) (NEGATIVE) mg/dL Urine Ketones (NEGATIVE) mg/dL Urine Blood (NEGATIVE) Urine Nitrate (NEGATIVE) Urine Bilirubin (NEGATIVE) Urine Urobilinogen (<1 E.U./dL) E.U./dL Ur Leukocyte Esterase (NEGATIVE) Emma/uL Urine RBC (0-2) /hpf Urine WBC (0-6) /hpf Ur Epithelial Cells (0-5) /hpf Uric Acid Crystals /hpf Urine Bacteria (NEG) Hyaline Casts /hpf Ur Random Creatinine 18 mg/dL Ur Random Sodium 43 meq/L Stool Occult Blood (NEGATIVE) Urine Opiates Screen (NEGATIVE) Urine Methadone Screen (NEGATIVE) Ur Barbiturates Screen (NEGATIVE) Ur Phencyclidine Scrn (NEGATIVE) Ur Amphetamines Screen (NEGATIVE) U Benzodiazepines Scrn (NEGATIVE) U Oth Cocaine Metabols (NEGATIVE) U Cannabinoids Screen (NEGATIVE) 02/06/17 02/06/17 02/06/17 Range/Units 18:21 16:00 15:00 WBC (4.5-11.0) 10^3/ul RBC (3.5-6.1) 10^6/uL Hgb (14.0-18.0) gm/dL Hct (42.0-52.0) % MCV (80.0-105.0) fL MCH (25.0-35.0) pg MCHC (31.0-37.0) g/dl RDW (11.5-14.5) % Plt Count (120.0-450.0) 10^3/uL MPV (7.0-11.0) fl Neutrophils % (Manual) (50.0-70.0) % Band Neutrophils % (0-2) % Lymphocytes % (Manual) (22.0-35.0) % Monocytes % (Manual) (1.0-6.0) % Platelet Evaluation (NORMAL) Anisocytosis (manual) Microcytosis (manual) pCO2 37 (35-45) mm/Hg pO2 170.0 H (80-100) mm/Hg HCO3 22.4 (21-28) mmol/L ABG pH 7.39 (7.35-7.45) ABG Total CO2 23.5 (22-28) mmol.L ABG O2 Saturation 99.6 H (95-98) % ABG O2 Content (15-23) ML/dl ABG Base Excess -2.2 L (-2.0-3.0) mmol/L ABG Hemoglobin (11.7-17.4) g/dL ABG Carboxyhemoglobin (0.5-1.5) % POC ABG HHb (Measured) (0-5) % ABG Methemoglobin (0.0-3.0) % ABG O2 Capacity (16-24) mL/dl ABG Potassium 3.9 (3.6-5.2) mmol/L VBG pH (7.32-7.43) VBG pCO2 (40-60) VBG HCO3 (21-28) mmol/l VBG Total CO2 (22-28) mmol.L VBG O2 Sat (Calc) (40-65) % VBG Base Excess (0.0-2.0) mmol/L VBG Potassium (3.6-5.2) mmol/L Hgb O2 Saturation (95.0-98.0) % Sodium 143.0 (132-148) mmol/L Chloride 108.0 H (98-107) mmol/L Glucose 86 (75-110) mg/dl Lactate 2.7 H (0.7-2.1) mmol/L Mechanical Rate 28 FiO2 100.0 % Tidal Volume 400 PEEP 5 Potassium (3.6-5.0) mmol/L Carbon Dioxide (21-33) mmol/L Anion Gap (10-20) BUN (7-21) mg/dL Creatinine (0.5-1.4) mg/dL Est GFR ( Amer) Est GFR (Non-Af Amer) Random Glucose (70-110) mg/dL Calcium (8.4-10.5) mg/dL Phosphorus (2.5-4.5) mg/dL Magnesium (1.7-2.2) mg/dL Total Bilirubin (0.2-1.3) mg/dL AST (15-59) U/L ALT (7-56) U/L Alkaline Phosphatase (38-133) U/L Lactate Dehydrogenase (333-699) U/L Total Creatine Kinase (35-230) U/L CK-MB (CK-2) (0.0-3.6) ng/mL CK-MB (CK-2) % (2.5-3.0) % Troponin I ng/mL Total Protein (5.8-8.3) g/dL Albumin (3.0-4.8) g/dL Globulin gm/dL Albumin/Globulin Ratio (1.1-1.8) TSH 3rd Generation (0.46-4.68) MIU/ml Arterial Blood Potassium 3.9 (3.6-5.2) mmol/L Venous Blood Potassium (3.6-5.2) mmol/L Urine Color (YELLOW) Urine Appearance (CLEAR) Urine pH (4.7-8.0) Ur Specific [place] (1.005-1.035) Urine Protein (<30 mg/dL) mg/dL Urine Glucose (UA) (NEGATIVE) mg/dL Urine Ketones (NEGATIVE) mg/dL Urine Blood (NEGATIVE) Urine Nitrate (NEGATIVE) Urine Bilirubin (NEGATIVE) Urine Urobilinogen (<1 E.U./dL) E.U./dL Ur Leukocyte Esterase (NEGATIVE) Emma/uL Urine RBC (0-2) /hpf Urine WBC (0-6) /hpf Ur Epithelial Cells (0-5) /hpf Uric Acid Crystals /hpf Urine Bacteria (NEG) Hyaline Casts /hpf Ur Random Creatinine mg/dL Ur Random Sodium meq/L Stool Occult Blood Positive H (NEGATIVE) Urine Opiates Screen Positive H (NEGATIVE) Urine Methadone Screen Negative (NEGATIVE) Ur Barbiturates Screen Negative (NEGATIVE) Ur Phencyclidine Scrn Negative (NEGATIVE) Ur Amphetamines Screen Negative (NEGATIVE) U Benzodiazepines Scrn Negative (NEGATIVE) U Oth Cocaine Metabols Negative (NEGATIVE) U Cannabinoids Screen Negative (NEGATIVE) 02/06/17 Range/Units 15:00 WBC (4.5-11.0) 10^3/ul RBC (3.5-6.1) 10^6/uL Hgb (14.0-18.0) gm/dL Hct (42.0-52.0) % MCV (80.0-105.0) fL MCH (25.0-35.0) pg MCHC (31.0-37.0) g/dl RDW (11.5-14.5) % Plt Count (120.0-450.0) 10^3/uL MPV (7.0-11.0) fl Neutrophils % (Manual) (50.0-70.0) % Band Neutrophils % (0-2) % Lymphocytes % (Manual) (22.0-35.0) % Monocytes % (Manual) (1.0-6.0) % Platelet Evaluation (NORMAL) Anisocytosis (manual) Microcytosis (manual) pCO2 (35-45) mm/Hg pO2 (80-100) mm/Hg HCO3 (21-28) mmol/L ABG pH (7.35-7.45) ABG Total CO2 (22-28) mmol.L ABG O2 Saturation (95-98) % ABG O2 Content (15-23) ML/dl ABG Base Excess (-2.0-3.0) mmol/L ABG Hemoglobin (11.7-17.4) g/dL ABG Carboxyhemoglobin (0.5-1.5) % POC ABG HHb (Measured) (0-5) % ABG Methemoglobin (0.0-3.0) % ABG O2 Capacity (16-24) mL/dl ABG Potassium (3.6-5.2) mmol/L VBG pH (7.32-7.43) VBG pCO2 (40-60) VBG HCO3 (21-28) mmol/l VBG Total CO2 (22-28) mmol.L VBG O2 Sat (Calc) (40-65) % VBG Base Excess (0.0-2.0) mmol/L VBG Potassium (3.6-5.2) mmol/L Hgb O2 Saturation (95.0-98.0) % Sodium (132-148) mmol/L Chloride (98-107) mmol/L Glucose (75-110) mg/dl Lactate (0.7-2.1) mmol/L Mechanical Rate FiO2 % Tidal Volume PEEP Potassium (3.6-5.0) mmol/L Carbon Dioxide (21-33) mmol/L Anion Gap (10-20) BUN (7-21) mg/dL Creatinine (0.5-1.4) mg/dL Est GFR ( Amer) Est GFR (Non-Af Amer) Random Glucose (70-110) mg/dL Calcium (8.4-10.5) mg/dL Phosphorus (2.5-4.5) mg/dL Magnesium (1.7-2.2) mg/dL Total Bilirubin (0.2-1.3) mg/dL AST (15-59) U/L ALT (7-56) U/L Alkaline Phosphatase (38-133) U/L Lactate Dehydrogenase (333-699) U/L Total Creatine Kinase (35-230) U/L CK-MB (CK-2) (0.0-3.6) ng/mL CK-MB (CK-2) % (2.5-3.0) % Troponin I ng/mL Total Protein (5.8-8.3) g/dL Albumin (3.0-4.8) g/dL Globulin gm/dL Albumin/Globulin Ratio (1.1-1.8) TSH 3rd Generation (0.46-4.68) MIU/ml Arterial Blood Potassium (3.6-5.2) mmol/L Venous Blood Potassium (3.6-5.2) mmol/L Urine Color Yellow (YELLOW) Urine Appearance Clear (CLEAR) Urine pH 5.5 (4.7-8.0) Ur Specific [place] 1.020 (1.005-1.035) Urine Protein Negative (<30 mg/dL) mg/dL Urine Glucose (UA) Negative (NEGATIVE) mg/dL Urine Ketones Negative (NEGATIVE) mg/dL Urine Blood Trace-intact H (NEGATIVE) Urine Nitrate Negative (NEGATIVE) Urine Bilirubin Negative (NEGATIVE) Urine Urobilinogen 0.2 (<1 E.U./dL) E.U./dL Ur Leukocyte Esterase Negative (NEGATIVE) Emma/uL Urine RBC 0 - 2 (0-2) /hpf Urine WBC 0 - 2 (0-6) /hpf Ur Epithelial Cells 0 - 2 (0-5) /hpf Uric Acid Crystals Trace /hpf Urine Bacteria Large (NEG) Hyaline Casts 0 - 2 /hpf Ur Random Creatinine mg/dL Ur Random Sodium meq/L Stool Occult Blood (NEGATIVE) Urine Opiates Screen (NEGATIVE) Urine Methadone Screen (NEGATIVE) Ur Barbiturates Screen (NEGATIVE) Ur Phencyclidine Scrn (NEGATIVE) Ur Amphetamines Screen (NEGATIVE) U Benzodiazepines Scrn (NEGATIVE) U Oth Cocaine Metabols (NEGATIVE) U Cannabinoids Screen (NEGATIVE) Laboratory Results - last 24 hr 02/06/17 02/06/17 02/06/17 15:00 15:00 16:00 WBC RBC Hgb Hct MCV MCH MCHC RDW Plt Count MPV Neutrophils % (Manual) Band Neutrophils % Lymphocytes % (Manual) Monocytes % (Manual) Platelet Evaluation Anisocytosis (manual) Microcytosis (manual) pCO2 pO2 HCO3 ABG pH ABG Total CO2 ABG O2 Saturation ABG O2 Content ABG Base Excess ABG Hemoglobin ABG Carboxyhemoglobin POC ABG HHb (Measured) ABG Methemoglobin ABG O2 Capacity ABG Potassium VBG pH VBG pCO2 VBG HCO3 VBG Total CO2 VBG O2 Sat (Calc) VBG Base Excess VBG Potassium Hgb O2 Saturation Sodium Chloride Glucose Lactate Mechanical Rate FiO2 Tidal Volume PEEP Potassium Carbon Dioxide Anion Gap BUN Creatinine Est GFR ( Amer) Est GFR (Non-Af Amer) Random Glucose Calcium Phosphorus Magnesium Total Bilirubin AST ALT Alkaline Phosphatase Lactate Dehydrogenase Total Creatine Kinase CK-MB (CK-2) CK-MB (CK-2) % Troponin I Total Protein Albumin Globulin Albumin/Globulin Ratio TSH 3rd Generation Arterial Blood Potassium Venous Blood Potassium Urine Color Yellow Urine Appearance Clear Urine pH 5.5 Ur Specific [place] 1.020 Urine Protein Negative Urine Glucose (UA) Negative Urine Ketones Negative Urine Blood Trace-intact H Urine Nitrate Negative Urine Bilirubin Negative Urine Urobilinogen 0.2 Ur Leukocyte Esterase Negative Urine RBC 0 - 2 Urine WBC 0 - 2 Ur Epithelial Cells 0 - 2 Uric Acid Crystals Trace Urine Bacteria Large Hyaline Casts 0 - 2 Ur Random Creatinine Ur Random Sodium Stool Occult Blood Positive H Urine Opiates Screen Positive H Urine Methadone Screen Negative Ur Barbiturates Screen Negative Ur Phencyclidine Scrn Negative Ur Amphetamines Screen Negative U Benzodiazepines Scrn Negative U Oth Cocaine Metabols Negative U Cannabinoids Screen Negative 02/06/17 02/06/17 02/06/17 18:21 18:38 21:18 WBC RBC Hgb Hct MCV MCH MCHC RDW Plt Count MPV Neutrophils % (Manual) Band Neutrophils % Lymphocytes % (Manual) Monocytes % (Manual) Platelet Evaluation Anisocytosis (manual) Microcytosis (manual) pCO2 37 pO2 170.0 H 35 HCO3 22.4 ABG pH 7.39 ABG Total CO2 23.5 ABG O2 Saturation 99.6 H ABG O2 Content ABG Base Excess -2.2 L ABG Hemoglobin ABG Carboxyhemoglobin POC ABG HHb (Measured) ABG Methemoglobin ABG O2 Capacity ABG Potassium 3.9 VBG pH 7.33 VBG pCO2 47.0 VBG HCO3 24.8 VBG Total CO2 26.2 VBG O2 Sat (Calc) 69.2 H VBG Base Excess -1.5 L VBG Potassium 4.0 Hgb O2 Saturation Sodium 143.0 141.0 Chloride 108.0 H 105.0 Glucose 86 109 Lactate 2.7 H 2.2 H Mechanical Rate 28 FiO2 100.0 21.0 Tidal Volume 400 PEEP 5 Potassium Carbon Dioxide Anion Gap BUN Creatinine Est GFR ( Amer) Est GFR (Non-Af Amer) Random Glucose Calcium Phosphorus Magnesium Total Bilirubin AST ALT Alkaline Phosphatase Lactate Dehydrogenase Total Creatine Kinase CK-MB (CK-2) CK-MB (CK-2) % Troponin I Total Protein Albumin Globulin Albumin/Globulin Ratio TSH 3rd Generation Arterial Blood Potassium 3.9 Venous Blood Potassium 4.0 Urine Color Urine Appearance Urine pH Ur Specific [place] Urine Protein Urine Glucose (UA) Urine Ketones Urine Blood Urine Nitrate Urine Bilirubin Urine Urobilinogen Ur Leukocyte Esterase Urine RBC Urine WBC Ur Epithelial Cells Uric Acid Crystals Urine Bacteria Hyaline Casts Ur Random Creatinine 18 Ur Random Sodium 43 Stool Occult Blood Urine Opiates Screen Urine Methadone Screen Ur Barbiturates Screen Ur Phencyclidine Scrn Ur Amphetamines Screen U Benzodiazepines Scrn U Oth Cocaine Metabols U Cannabinoids Screen 02/07/17 02/07/17 02/07/17 05:30 06:14 06:14 WBC 14.5 H RBC 4.64 Hgb 13.0 L Hct 38.9 L MCV 83.8 MCH 28.0 MCHC 33.4 RDW 15.2 H Plt Count 301 MPV 9.7 Neutrophils % (Manual) 80 H Band Neutrophils % 7 H Lymphocytes % (Manual) 9 L Monocytes % (Manual) 4 Platelet Evaluation Normal Anisocytosis (manual) 1+ Microcytosis (manual) Slight pCO2 32 L pO2 65.0 L HCO3 20.8 L ABG pH 7.42 ABG Total CO2 21.8 L ABG O2 Saturation 95.8 ABG O2 Content 17.1 ABG Base Excess -2.8 L ABG Hemoglobin 13.0 ABG Carboxyhemoglobin 1.7 H POC ABG HHb (Measured) 4.1 ABG Methemoglobin 0.9 ABG O2 Capacity 17.8 ABG Potassium VBG pH VBG pCO2 VBG HCO3 VBG Total CO2 VBG O2 Sat (Calc) VBG Base Excess VBG Potassium Hgb O2 Saturation 93.3 L Sodium 143 Chloride 107 Glucose Lactate Mechanical Rate FiO2 50.0 Tidal Volume PEEP Potassium 3.8 Carbon Dioxide 23 Anion Gap 17 BUN 49 H Creatinine 4.7 H Est GFR ( Amer) 16 Est GFR (Non-Af Amer) 13 Random Glucose 128 H Calcium 8.1 L Phosphorus 4.8 H Magnesium 2.2 Total Bilirubin 0.7 AST 357 H ALT 249 H Alkaline Phosphatase 107 Lactate Dehydrogenase 3017 H Total Creatine Kinase 3003 H CK-MB (CK-2) 55.6 H CK-MB (CK-2) % 1.9 L Troponin I 1.37 H* D Total Protein 6.9 Albumin 3.6 Globulin 3.4 Albumin/Globulin Ratio 1.1 TSH 3rd Generation Arterial Blood Potassium Venous Blood Potassium Urine Color Urine Appearance Urine pH Ur Specific [place] Urine Protein Urine Glucose (UA) Urine Ketones Urine Blood Urine Nitrate Urine Bilirubin Urine Urobilinogen Ur Leukocyte Esterase Urine RBC Urine WBC Ur Epithelial Cells Uric Acid Crystals Urine Bacteria Hyaline Casts Ur Random Creatinine Ur Random Sodium Stool Occult Blood Urine Opiates Screen Urine Methadone Screen Ur Barbiturates Screen Ur Phencyclidine Scrn Ur Amphetamines Screen U Benzodiazepines Scrn U Oth Cocaine Metabols U Cannabinoids Screen 02/07/17 06:14 WBC RBC Hgb Hct MCV MCH MCHC RDW Plt Count MPV Neutrophils % (Manual) Band Neutrophils % Lymphocytes % (Manual) Monocytes % (Manual) Platelet Evaluation Anisocytosis (manual) Microcytosis (manual) pCO2 pO2 HCO3 ABG pH ABG Total CO2 ABG O2 Saturation ABG O2 Content ABG Base Excess ABG Hemoglobin ABG Carboxyhemoglobin POC ABG HHb (Measured) ABG Methemoglobin ABG O2 Capacity ABG Potassium VBG pH VBG pCO2 VBG HCO3 VBG Total CO2 VBG O2 Sat (Calc) VBG Base Excess VBG Potassium Hgb O2 Saturation Sodium Chloride Glucose Lactate Mechanical Rate FiO2 Tidal Volume PEEP Potassium Carbon Dioxide Anion Gap BUN Creatinine Est GFR ( Amer) Est GFR (Non-Af Amer) Random Glucose Calcium Phosphorus Magnesium Total Bilirubin AST ALT Alkaline Phosphatase Lactate Dehydrogenase Total Creatine Kinase CK-MB (CK-2) CK-MB (CK-2) % Troponin I Total Protein Albumin Globulin Albumin/Globulin Ratio TSH 3rd Generation 0.5 Arterial Blood Potassium Venous Blood Potassium Urine Color Urine Appearance Urine pH Ur Specific [place] Urine Protein Urine Glucose (UA) Urine Ketones Urine Blood Urine Nitrate Urine Bilirubin Urine Urobilinogen Ur Leukocyte Esterase Urine RBC Urine WBC Ur Epithelial Cells Uric Acid Crystals Urine Bacteria Hyaline Casts Ur Random Creatinine Ur Random Sodium Stool Occult Blood Urine Opiates Screen Urine Methadone Screen Ur Barbiturates Screen Ur Phencyclidine Scrn Ur Amphetamines Screen U Benzodiazepines Scrn U Oth Cocaine Metabols U Cannabinoids Screen Fingerstick Blood Sugar Results: 203 Assessment/Plan - Assessment and Plan (Free Text) Plan: 51 M with Hx heroine abuse, Hx non-obstructive CAD, s/p cardiopulmonary arrest suspicious of heroine overdose, Pt coded 4 times, asystole/PEA, with respiratory failure, intubated in the field. Pt has multiorgan damages due to ischemic insult - diffuse anoxic brain injury, NSTEMI, hypotension requiring levophed, shock liver, ROSALIO due to ATN/hypotension, gastroparesis, profuse diarrhea. Pt is possible septic from aspiration pneumonitis vs GI etiology. pt is able to breath on his own @ 8-11. He is not brain . Neuro Ativan 1q2 prn myoclonus gtt. Intubated; Not on sedation EEG after 24-48 hrs. In 48 hrs can determine neuro status. Neuro check q1 seizure/Aspiration precaution If (+) seizure, ativan prn, Precedex drip if needed. Watch increase ICP, brain edema Pulm Volume control RR22/TV400/FiO60%/PEEP5 (pt spontanously breathing at 8-11) Lasix 40 IV q8. NS@100 Duoneb as needed daily abg, cxr Maintain SaO2 above 90 Card NSTEMI, Inferior TWI. Heparin SC q8 Pending Echo Levophed at 15 mcg now for BP Will add vasopressin if needed GI rectal tube NG LIS - suction 650cc bilous and undigested food NPO Protonix IV daily VC 100% PEeep 5 rate 20 TV 400 /nephro ROSALIO workup: Fena 30; pending spot protein, U/A, rENAL U/S, C3, C4 Endo a1c tsh ISSS q8, accucheck q8 Heme Transfuse if Hb < 10 Infectious On vanco and zosyn for cellulitis/aspiration pna hiv, HEPATITIS panel pending Lactate trending down to 2 Maintain nomothernia below 98.7 (93-95F permissiable) If fever, cooling blanker PRN Prophylaxis - heparin SC q8, protonix IV daily Disposition Continue to observe for 1 more day to determine neuro status Consider [facility], Mr. Marquez, Consult [facility] - Dr. Nieves Cardio - Dr. Ramírez Palliative consult S/R/D/w Dr. Orozco - Date & Time Date: 02/07/17 Time: 10:46 <Leobardo Orozco - Last Filed: 02/07/17 15:02> CCU Objective - Vital Signs / Intake & Output Vital Signs (Last 4 hours): Vital Signs Temp Pulse BP Pulse Ox 02/07/17 12:30 97.7 F 87 133/81 95 02/07/17 12:20 97.7 F 86 95 02/07/17 12:15 97.7 F 86 131/78 95 02/07/17 12:10 97.9 F 85 94 L 02/07/17 12:00 97.9 F 86 128/79 95 02/07/17 11:53 97.9 F 84 120/79 95 02/07/17 11:50 98.1 F 84 95 02/07/17 11:45 98.1 F 84 116/72 95 02/07/17 11:40 98.1 F 84 95 02/07/17 11:30 98.1 F 84 112/60 94 L 02/07/17 11:20 98.2 F 84 94 L 02/07/17 11:15 98.2 F 83 121/76 94 L 02/07/17 11:10 98.4 F 83 94 L 02/07/17 11:00 98.4 F 83 108/66 94 L 02/07/17 10:50 98.4 F 86 89 L Intake and Output (Last 8hrs): Intake & Output 02/06/17 02/07/17 02/07/17 22:59 06:59 14:59 Intake Total 2750 1830 384.0 Output Total 675 730 Balance 2075 1100 384.0 Weight 285 lb 289 lb 9 oz Intake: IV 1760 384.0 Right Femoral 1760 Other 2750 70 Output: Urine 675 30 Urethral (Garcia) 675 30 Stool 700 Other: Voiding Method Toilet Indwelling Catheter Indwelling Catheter # Bowel Movements 1 3 - Medications Active Medications: Active Medications Generic Name Dose Route Start Last Admin Trade Name Freq PRN Reason Stop Dose Admin Aspirin 325 mg 02/07/17 10:00 02/07/17 10:24 Aspirin PO 325 mg DAILY CHUCHO Administration Heparin Sodium (Porcine) 5,000 units 02/06/17 22:00 02/07/17 14:26 Heparin SC 5,000 units Q8 CHUCHO Administration Protocol NOREPINEPHRINE BIT/0.9 % NACL 4 mg in 250 mls @ 15 mls/hr 02/06/17 15:09 13:08 Levophed 4 Mg/ 250 Ml Ns Premixed IV 10 mcg/min .[id number] PRN 37.5 mls/hr TITRATE PER MD ORDER Titration Protocol 4 MCG/MIN Vancomycin HCl 1 gm in 250 mls @ 167 mls/hr 02/07/17 10:00 02/07/17 09:45 Vancomycin 1gm IVPB 167 mls/hr DAILY CHUCHO Administration Protocol Sodium Chloride 1,000 mls @ 100 mls/hr 02/06/17 19:00 02/07/17 05:34 Sodium Chloride 0.9% IV 100 mls/hr .Q10H CHUCHO Administration Lorazepam 1 mg 02/06/17 18:19 02/06/17 22:29 Ativan IVP 1 mg Q2H PRN Administration Seizure activity Protocol Pantoprazole Sodium 40 mg 02/07/17 10:00 02/07/17 09:45 Protonix Inj IVP 40 mg DAILY CHUCHO Administration - Patient Studies Lab Studies: Microbiology Studies 02/06/17 16:00 C. difficile Antigen & Toxin A,B (M - Final Stool Lab Studies 02/07/17 02/07/17 02/07/17 Range/Units 06:14 06:14 06:14 WBC 14.5 H (4.5-11.0) 10^3/ul RBC 4.64 (3.5-6.1) 10^6/uL Hgb 13.0 L (14.0-18.0) gm/dL Hct 38.9 L (42.0-52.0) % MCV 83.8 (80.0-105.0) fL MCH 28.0 (25.0-35.0) pg MCHC 33.4 (31.0-37.0) g/dl RDW 15.2 H (11.5-14.5) % Plt Count 301 (120.0-450.0) 10^3/uL MPV 9.7 (7.0-11.0) fl Neutrophils % (Manual) 80 H (50.0-70.0) % Band Neutrophils % 7 H (0-2) % Lymphocytes % (Manual) 9 L (22.0-35.0) % Monocytes % (Manual) 4 (1.0-6.0) % Platelet Evaluation Normal (NORMAL) Anisocytosis (manual) 1+ Microcytosis (manual) Slight pCO2 (35-45) mm/Hg pO2 (80-100) mm/Hg HCO3 (21-28) mmol/L ABG pH (7.35-7.45) ABG Total CO2 (22-28) mmol.L ABG O2 Saturation (95-98) % ABG O2 Content (15-23) ML/dl ABG Base Excess (-2.0-3.0) mmol/L ABG Hemoglobin (11.7-17.4) g/dL ABG Carboxyhemoglobin (0.5-1.5) % POC ABG HHb (Measured) (0-5) % ABG Methemoglobin (0.0-3.0) % ABG O2 Capacity (16-24) mL/dl ABG Potassium (3.6-5.2) mmol/L VBG pH (7.32-7.43) VBG pCO2 (40-60) VBG HCO3 (21-28) mmol/l VBG Total CO2 (22-28) mmol.L VBG O2 Sat (Calc) (40-65) % VBG Base Excess (0.0-2.0) mmol/L VBG Potassium (3.6-5.2) mmol/L Hgb O2 Saturation (95.0-98.0) % Sodium (132-148) mmol/L Chloride (98-107) mmol/L Glucose (75-110) mg/dl Lactate (0.7-2.1) mmol/L Mechanical Rate FiO2 % Tidal Volume PEEP Potassium (3.6-5.0) mmol/L Carbon Dioxide (21-33) mmol/L Anion Gap (10-20) BUN (7-21) mg/dL Creatinine (0.5-1.4) mg/dL Est GFR ( Amer) Est GFR (Non-Af Amer) Random Glucose (70-110) mg/dL Hemoglobin A1c 6.5 (4.2-6.5) % Calcium (8.4-10.5) mg/dL Phosphorus (2.5-4.5) mg/dL Magnesium (1.7-2.2) mg/dL Total Bilirubin (0.2-1.3) mg/dL AST (15-59) U/L ALT (7-56) U/L Alkaline Phosphatase (38-133) U/L Lactate Dehydrogenase (333-699) U/L Total Creatine Kinase (35-230) U/L CK-MB (CK-2) (0.0-3.6) ng/mL CK-MB (CK-2) % (2.5-3.0) % Troponin I ng/mL Total Protein (5.8-8.3) g/dL Albumin (3.0-4.8) g/dL Globulin gm/dL Albumin/Globulin Ratio (1.1-1.8) TSH 3rd Generation 0.5 (0.46-4.68) MIU/ml Arterial Blood Potassium (3.6-5.2) mmol/L Venous Blood Potassium (3.6-5.2) mmol/L Urine Color (YELLOW) Urine Appearance (CLEAR) Urine pH (4.7-8.0) Ur Specific [place] (1.005-1.035) Urine Protein (<30 mg/dL) mg/dL Urine Glucose (UA) (NEGATIVE) mg/dL Urine Ketones (NEGATIVE) mg/dL Urine Blood (NEGATIVE) Urine Nitrate (NEGATIVE) Urine Bilirubin (NEGATIVE) Urine Urobilinogen (<1 E.U./dL) E.U./dL Ur Leukocyte Esterase (NEGATIVE) Emma/uL Urine RBC (0-2) /hpf Urine WBC (0-6) /hpf Ur Epithelial Cells (0-5) /hpf Uric Acid Crystals /hpf Urine Bacteria (NEG) Hyaline Casts /hpf Ur Random Creatinine mg/dL Ur Random Sodium meq/L Stool Occult Blood (NEGATIVE) Urine Opiates Screen (NEGATIVE) Urine Methadone Screen (NEGATIVE) Ur Barbiturates Screen (NEGATIVE) Ur Phencyclidine Scrn (NEGATIVE) Ur Amphetamines Screen (NEGATIVE) U Benzodiazepines Scrn (NEGATIVE) U Oth Cocaine Metabols (NEGATIVE) U Cannabinoids Screen (NEGATIVE) Complement C3 (88.0-165.0) mg/dL Complement C4 (14.0-44.0) mg/dL Hepatitis A IgM Ab (NEGATIVE) Hep Bs Antigen (NEGATIVE) Hep B Core IgM Ab (NEGATIVE) Hepatitis C Antibody (NEGATIVE) 02/07/17 02/07/17 02/07/17 Range/Units 06:14 06:14 05:30 WBC (4.5-11.0) 10^3/ul RBC (3.5-6.1) 10^6/uL Hgb (14.0-18.0) gm/dL Hct (42.0-52.0) % MCV (80.0-105.0) fL MCH (25.0-35.0) pg MCHC (31.0-37.0) g/dl RDW (11.5-14.5) % Plt Count (120.0-450.0) 10^3/uL MPV (7.0-11.0) fl Neutrophils % (Manual) (50.0-70.0) % Band Neutrophils % (0-2) % Lymphocytes % (Manual) (22.0-35.0) % Monocytes % (Manual) (1.0-6.0) % Platelet Evaluation (NORMAL) Anisocytosis (manual) Microcytosis (manual) pCO2 32 L (35-45) mm/Hg pO2 65.0 L (80-100) mm/Hg HCO3 20.8 L (21-28) mmol/L ABG pH 7.42 (7.35-7.45) ABG Total CO2 21.8 L (22-28) mmol.L ABG O2 Saturation 95.8 (95-98) % ABG O2 Content 17.1 (15-23) ML/dl ABG Base Excess -2.8 L (-2.0-3.0) mmol/L ABG Hemoglobin 13.0 (11.7-17.4) g/dL ABG Carboxyhemoglobin 1.7 H (0.5-1.5) % POC ABG HHb (Measured) 4.1 (0-5) % ABG Methemoglobin 0.9 (0.0-3.0) % ABG O2 Capacity 17.8 (16-24) mL/dl ABG Potassium (3.6-5.2) mmol/L VBG pH (7.32-7.43) VBG pCO2 (40-60) VBG HCO3 (21-28) mmol/l VBG Total CO2 (22-28) mmol.L VBG O2 Sat (Calc) (40-65) % VBG Base Excess (0.0-2.0) mmol/L VBG Potassium (3.6-5.2) mmol/L Hgb O2 Saturation 93.3 L (95.0-98.0) % Sodium 143 (132-148) mmol/L Chloride 107 (98-107) mmol/L Glucose (75-110) mg/dl Lactate (0.7-2.1) mmol/L Mechanical Rate FiO2 50.0 % Tidal Volume PEEP Potassium 3.8 (3.6-5.0) mmol/L Carbon Dioxide 23 (21-33) mmol/L Anion Gap 17 (10-20) BUN 49 H (7-21) mg/dL Creatinine 4.7 H (0.5-1.4) mg/dL Est GFR ( Amer) 16 Est GFR (Non-Af Amer) 13 Random Glucose 128 H (70-110) mg/dL Hemoglobin A1c (4.2-6.5) % Calcium 8.1 L (8.4-10.5) mg/dL Phosphorus 4.8 H (2.5-4.5) mg/dL Magnesium 2.2 (1.7-2.2) mg/dL Total Bilirubin 0.7 (0.2-1.3) mg/dL AST 357 H (15-59) U/L ALT 249 H (7-56) U/L Alkaline Phosphatase 107 (38-133) U/L Lactate Dehydrogenase 3017 H (333-699) U/L Total Creatine Kinase 3003 H (35-230) U/L CK-MB (CK-2) 55.6 H (0.0-3.6) ng/mL CK-MB (CK-2) % 1.9 L (2.5-3.0) % Troponin I 1.37 H* D ng/mL Total Protein 6.9 (5.8-8.3) g/dL Albumin 3.6 (3.0-4.8) g/dL Globulin 3.4 gm/dL Albumin/Globulin Ratio 1.1 (1.1-1.8) TSH 3rd Generation (0.46-4.68) MIU/ml Arterial Blood Potassium (3.6-5.2) mmol/L Venous Blood Potassium (3.6-5.2) mmol/L Urine Color (YELLOW) Urine Appearance (CLEAR) Urine pH (4.7-8.0) Ur Specific [place] (1.005-1.035) Urine Protein (<30 mg/dL) mg/dL Urine Glucose (UA) (NEGATIVE) mg/dL Urine Ketones (NEGATIVE) mg/dL Urine Blood (NEGATIVE) Urine Nitrate (NEGATIVE) Urine Bilirubin (NEGATIVE) Urine Urobilinogen (<1 E.U./dL) E.U./dL Ur Leukocyte Esterase (NEGATIVE) Emma/uL Urine RBC (0-2) /hpf Urine WBC (0-6) /hpf Ur Epithelial Cells (0-5) /hpf Uric Acid Crystals /hpf Urine Bacteria (NEG) Hyaline Casts /hpf Ur Random Creatinine mg/dL Ur Random Sodium meq/L Stool Occult Blood (NEGATIVE) Urine Opiates Screen (NEGATIVE) Urine Methadone Screen (NEGATIVE) Ur Barbiturates Screen (NEGATIVE) Ur Phencyclidine Scrn (NEGATIVE) Ur Amphetamines Screen (NEGATIVE) U Benzodiazepines Scrn (NEGATIVE) U Oth Cocaine Metabols (NEGATIVE) U Cannabinoids Screen (NEGATIVE) Complement C3 (88.0-165.0) mg/dL Complement C4 (14.0-44.0) mg/dL Hepatitis A IgM Ab Negative (NEGATIVE) Hep Bs Antigen Negative (NEGATIVE) Hep B Core IgM Ab Negative (NEGATIVE) Hepatitis C Antibody Reactive H (NEGATIVE) 02/06/17 02/06/17 02/06/17 Range/Units 21:18 21:18 18:38 WBC (4.5-11.0) 10^3/ul RBC (3.5-6.1) 10^6/uL Hgb (14.0-18.0) gm/dL Hct (42.0-52.0) % MCV (80.0-105.0) fL MCH (25.0-35.0) pg MCHC (31.0-37.0) g/dl RDW (11.5-14.5) % Plt Count (120.0-450.0) 10^3/uL MPV (7.0-11.0) fl Neutrophils % (Manual) (50.0-70.0) % Band Neutrophils % (0-2) % Lymphocytes % (Manual) (22.0-35.0) % Monocytes % (Manual) (1.0-6.0) % Platelet Evaluation (NORMAL) Anisocytosis (manual) Microcytosis (manual) pCO2 (35-45) mm/Hg pO2 35 (80-100) mm/Hg HCO3 (21-28) mmol/L ABG pH (7.35-7.45) ABG Total CO2 (22-28) mmol.L ABG O2 Saturation (95-98) % ABG O2 Content (15-23) ML/dl ABG Base Excess (-2.0-3.0) mmol/L ABG Hemoglobin (11.7-17.4) g/dL ABG Carboxyhemoglobin (0.5-1.5) % POC ABG HHb (Measured) (0-5) % ABG Methemoglobin (0.0-3.0) % ABG O2 Capacity (16-24) mL/dl ABG Potassium (3.6-5.2) mmol/L VBG pH 7.33 (7.32-7.43) VBG pCO2 47.0 (40-60) VBG HCO3 24.8 (21-28) mmol/l VBG Total CO2 26.2 (22-28) mmol.L VBG O2 Sat (Calc) 69.2 H (40-65) % VBG Base Excess -1.5 L (0.0-2.0) mmol/L VBG Potassium 4.0 (3.6-5.2) mmol/L Hgb O2 Saturation (95.0-98.0) % Sodium 141.0 (132-148) mmol/L Chloride 105.0 (98-107) mmol/L Glucose 109 (75-110) mg/dl Lactate 2.2 H (0.7-2.1) mmol/L Mechanical Rate FiO2 21.0 % Tidal Volume PEEP Potassium (3.6-5.0) mmol/L Carbon Dioxide (21-33) mmol/L Anion Gap (10-20) BUN (7-21) mg/dL Creatinine (0.5-1.4) mg/dL Est GFR ( Amer) Est GFR (Non-Af Amer) Random Glucose (70-110) mg/dL Hemoglobin A1c (4.2-6.5) % Calcium (8.4-10.5) mg/dL Phosphorus (2.5-4.5) mg/dL Magnesium (1.7-2.2) mg/dL Total Bilirubin (0.2-1.3) mg/dL AST (15-59) U/L ALT (7-56) U/L Alkaline Phosphatase (38-133) U/L Lactate Dehydrogenase (333-699) U/L Total Creatine Kinase (35-230) U/L CK-MB (CK-2) (0.0-3.6) ng/mL CK-MB (CK-2) % (2.5-3.0) % Troponin I ng/mL Total Protein (5.8-8.3) g/dL Albumin (3.0-4.8) g/dL Globulin gm/dL Albumin/Globulin Ratio (1.1-1.8) TSH 3rd Generation (0.46-4.68) MIU/ml Arterial Blood Potassium (3.6-5.2) mmol/L Venous Blood Potassium 4.0 (3.6-5.2) mmol/L Urine Color (YELLOW) Urine Appearance (CLEAR) Urine pH (4.7-8.0) Ur Specific [place] (1.005-1.035) Urine Protein (<30 mg/dL) mg/dL Urine Glucose (UA) (NEGATIVE) mg/dL Urine Ketones (NEGATIVE) mg/dL Urine Blood (NEGATIVE) Urine Nitrate (NEGATIVE) Urine Bilirubin (NEGATIVE) Urine Urobilinogen (<1 E.U./dL) E.U./dL Ur Leukocyte Esterase (NEGATIVE) Emma/uL Urine RBC (0-2) /hpf Urine WBC (0-6) /hpf Ur Epithelial Cells (0-5) /hpf Uric Acid Crystals /hpf Urine Bacteria (NEG) Hyaline Casts /hpf Ur Random Creatinine 18 mg/dL Ur Random Sodium 43 meq/L Stool Occult Blood (NEGATIVE) Urine Opiates Screen (NEGATIVE) Urine Methadone Screen (NEGATIVE) Ur Barbiturates Screen (NEGATIVE) Ur Phencyclidine Scrn (NEGATIVE) Ur Amphetamines Screen (NEGATIVE) U Benzodiazepines Scrn (NEGATIVE) U Oth Cocaine Metabols (NEGATIVE) U Cannabinoids Screen (NEGATIVE) Complement C3 114.0 (88.0-165.0) mg/dL Complement C4 27.7 (14.0-44.0) mg/dL Hepatitis A IgM Ab (NEGATIVE) Hep Bs Antigen (NEGATIVE) Hep B Core IgM Ab (NEGATIVE) Hepatitis C Antibody (NEGATIVE) 02/06/17 02/06/17 02/06/17 Range/Units 18:21 16:00 15:00 WBC (4.5-11.0) 10^3/ul RBC (3.5-6.1) 10^6/uL Hgb (14.0-18.0) gm/dL Hct (42.0-52.0) % MCV (80.0-105.0) fL MCH (25.0-35.0) pg MCHC (31.0-37.0) g/dl RDW (11.5-14.5) % Plt Count (120.0-450.0) 10^3/uL MPV (7.0-11.0) fl Neutrophils % (Manual) (50.0-70.0) % Band Neutrophils % (0-2) % Lymphocytes % (Manual) (22.0-35.0) % Monocytes % (Manual) (1.0-6.0) % Platelet Evaluation (NORMAL) Anisocytosis (manual) Microcytosis (manual) pCO2 37 (35-45) mm/Hg pO2 170.0 H (80-100) mm/Hg HCO3 22.4 (21-28) mmol/L ABG pH 7.39 (7.35-7.45) ABG Total CO2 23.5 (22-28) mmol.L ABG O2 Saturation 99.6 H (95-98) % ABG O2 Content (15-23) ML/dl ABG Base Excess -2.2 L (-2.0-3.0) mmol/L ABG Hemoglobin (11.7-17.4) g/dL ABG Carboxyhemoglobin (0.5-1.5) % POC ABG HHb (Measured) (0-5) % ABG Methemoglobin (0.0-3.0) % ABG O2 Capacity (16-24) mL/dl ABG Potassium 3.9 (3.6-5.2) mmol/L VBG pH (7.32-7.43) VBG pCO2 (40-60) VBG HCO3 (21-28) mmol/l VBG Total CO2 (22-28) mmol.L VBG O2 Sat (Calc) (40-65) % VBG Base Excess (0.0-2.0) mmol/L VBG Potassium (3.6-5.2) mmol/L Hgb O2 Saturation (95.0-98.0) % Sodium 143.0 (132-148) mmol/L Chloride 108.0 H (98-107) mmol/L Glucose 86 (75-110) mg/dl Lactate 2.7 H (0.7-2.1) mmol/L Mechanical Rate 28 FiO2 100.0 % Tidal Volume 400 PEEP 5 Potassium (3.6-5.0) mmol/L Carbon Dioxide (21-33) mmol/L Anion Gap (10-20) BUN (7-21) mg/dL Creatinine (0.5-1.4) mg/dL Est GFR ( Amer) Est GFR (Non-Af Amer) Random Glucose (70-110) mg/dL Hemoglobin A1c (4.2-6.5) % Calcium (8.4-10.5) mg/dL Phosphorus (2.5-4.5) mg/dL Magnesium (1.7-2.2) mg/dL Total Bilirubin (0.2-1.3) mg/dL AST (15-59) U/L ALT (7-56) U/L Alkaline Phosphatase (38-133) U/L Lactate Dehydrogenase (333-699) U/L Total Creatine Kinase (35-230) U/L CK-MB (CK-2) (0.0-3.6) ng/mL CK-MB (CK-2) % (2.5-3.0) % Troponin I ng/mL Total Protein (5.8-8.3) g/dL Albumin (3.0-4.8) g/dL Globulin gm/dL Albumin/Globulin Ratio (1.1-1.8) TSH 3rd Generation (0.46-4.68) MIU/ml Arterial Blood Potassium 3.9 (3.6-5.2) mmol/L Venous Blood Potassium (3.6-5.2) mmol/L Urine Color (YELLOW) Urine Appearance (CLEAR) Urine pH (4.7-8.0) Ur Specific [place] (1.005-1.035) Urine Protein (<30 mg/dL) mg/dL Urine Glucose (UA) (NEGATIVE) mg/dL Urine Ketones (NEGATIVE) mg/dL Urine Blood (NEGATIVE) Urine Nitrate (NEGATIVE) Urine Bilirubin (NEGATIVE) Urine Urobilinogen (<1 E.U./dL) E.U./dL Ur Leukocyte Esterase (NEGATIVE) Emma/uL Urine RBC (0-2) /hpf Urine WBC (0-6) /hpf Ur Epithelial Cells (0-5) /hpf Uric Acid Crystals /hpf Urine Bacteria (NEG) Hyaline Casts /hpf Ur Random Creatinine mg/dL Ur Random Sodium meq/L Stool Occult Blood Positive H (NEGATIVE) Urine Opiates Screen Positive H (NEGATIVE) Urine Methadone Screen Negative (NEGATIVE) Ur Barbiturates Screen Negative (NEGATIVE) Ur Phencyclidine Scrn Negative (NEGATIVE) Ur Amphetamines Screen Negative (NEGATIVE) U Benzodiazepines Scrn Negative (NEGATIVE) U Oth Cocaine Metabols Negative (NEGATIVE) U Cannabinoids Screen Negative (NEGATIVE) Complement C3 (88.0-165.0) mg/dL Complement C4 (14.0-44.0) mg/dL Hepatitis A IgM Ab (NEGATIVE) Hep Bs Antigen (NEGATIVE) Hep B Core IgM Ab (NEGATIVE) Hepatitis C Antibody (NEGATIVE) 02/06/17 Range/Units 15:00 WBC (4.5-11.0) 10^3/ul RBC (3.5-6.1) 10^6/uL Hgb (14.0-18.0) gm/dL Hct (42.0-52.0) % MCV (80.0-105.0) fL MCH (25.0-35.0) pg MCHC (31.0-37.0) g/dl RDW (11.5-14.5) % Plt Count (120.0-450.0) 10^3/uL MPV (7.0-11.0) fl Neutrophils % (Manual) (50.0-70.0) % Band Neutrophils % (0-2) % Lymphocytes % (Manual) (22.0-35.0) % Monocytes % (Manual) (1.0-6.0) % Platelet Evaluation (NORMAL) Anisocytosis (manual) Microcytosis (manual) pCO2 (35-45) mm/Hg pO2 (80-100) mm/Hg HCO3 (21-28) mmol/L ABG pH (7.35-7.45) ABG Total CO2 (22-28) mmol.L ABG O2 Saturation (95-98) % ABG O2 Content (15-23) ML/dl ABG Base Excess (-2.0-3.0) mmol/L ABG Hemoglobin (11.7-17.4) g/dL ABG Carboxyhemoglobin (0.5-1.5) % POC ABG HHb (Measured) (0-5) % ABG Methemoglobin (0.0-3.0) % ABG O2 Capacity (16-24) mL/dl ABG Potassium (3.6-5.2) mmol/L VBG pH (7.32-7.43) VBG pCO2 (40-60) VBG HCO3 (21-28) mmol/l VBG Total CO2 (22-28) mmol.L VBG O2 Sat (Calc) (40-65) % VBG Base Excess (0.0-2.0) mmol/L VBG Potassium (3.6-5.2) mmol/L Hgb O2 Saturation (95.0-98.0) % Sodium (132-148) mmol/L Chloride (98-107) mmol/L Glucose (75-110) mg/dl Lactate (0.7-2.1) mmol/L Mechanical Rate FiO2 % Tidal Volume PEEP Potassium (3.6-5.0) mmol/L Carbon Dioxide (21-33) mmol/L Anion Gap (10-20) BUN (7-21) mg/dL Creatinine (0.5-1.4) mg/dL Est GFR ( Amer) Est GFR (Non-Af Amer) Random Glucose (70-110) mg/dL Hemoglobin A1c (4.2-6.5) % Calcium (8.4-10.5) mg/dL Phosphorus (2.5-4.5) mg/dL Magnesium (1.7-2.2) mg/dL Total Bilirubin (0.2-1.3) mg/dL AST (15-59) U/L ALT (7-56) U/L Alkaline Phosphatase (38-133) U/L Lactate Dehydrogenase (333-699) U/L Total Creatine Kinase (35-230) U/L CK-MB (CK-2) (0.0-3.6) ng/mL CK-MB (CK-2) % (2.5-3.0) % Troponin I ng/mL Total Protein (5.8-8.3) g/dL Albumin (3.0-4.8) g/dL Globulin gm/dL Albumin/Globulin Ratio (1.1-1.8) TSH 3rd Generation (0.46-4.68) MIU/ml Arterial Blood Potassium (3.6-5.2) mmol/L Venous Blood Potassium (3.6-5.2) mmol/L Urine Color Yellow (YELLOW) Urine Appearance Clear (CLEAR) Urine pH 5.5 (4.7-8.0) Ur Specific [place] 1.020 (1.005-1.035) Urine Protein Negative (<30 mg/dL) mg/dL Urine Glucose (UA) Negative (NEGATIVE) mg/dL Urine Ketones Negative (NEGATIVE) mg/dL Urine Blood Trace-intact H (NEGATIVE) Urine Nitrate Negative (NEGATIVE) Urine Bilirubin Negative (NEGATIVE) Urine Urobilinogen 0.2 (<1 E.U./dL) E.U./dL Ur Leukocyte Esterase Negative (NEGATIVE) Emma/uL Urine RBC 0 - 2 (0-2) /hpf Urine WBC 0 - 2 (0-6) /hpf Ur Epithelial Cells 0 - 2 (0-5) /hpf Uric Acid Crystals Trace /hpf Urine Bacteria Large (NEG) Hyaline Casts 0 - 2 /hpf Ur Random Creatinine mg/dL Ur Random Sodium meq/L Stool Occult Blood (NEGATIVE) Urine Opiates Screen (NEGATIVE) Urine Methadone Screen (NEGATIVE) Ur Barbiturates Screen (NEGATIVE) Ur Phencyclidine Scrn (NEGATIVE) Ur Amphetamines Screen (NEGATIVE) U Benzodiazepines Scrn (NEGATIVE) U Oth Cocaine Metabols (NEGATIVE) U Cannabinoids Screen (NEGATIVE) Complement C3 (88.0-165.0) mg/dL Complement C4 (14.0-44.0) mg/dL Hepatitis A IgM Ab (NEGATIVE) Hep Bs Antigen (NEGATIVE) Hep B Core IgM Ab (NEGATIVE) Hepatitis C Antibody (NEGATIVE) Laboratory Results - last 24 hr 02/06/17 02/06/17 02/06/17 15:00 15:00 16:00 WBC RBC Hgb Hct MCV MCH MCHC RDW Plt Count MPV Neutrophils % (Manual) Band Neutrophils % Lymphocytes % (Manual) Monocytes % (Manual) Platelet Evaluation Anisocytosis (manual) Microcytosis (manual) pCO2 pO2 HCO3 ABG pH ABG Total CO2 ABG O2 Saturation ABG O2 Content ABG Base Excess ABG Hemoglobin ABG Carboxyhemoglobin POC ABG HHb (Measured) ABG Methemoglobin ABG O2 Capacity ABG Potassium VBG pH VBG pCO2 VBG HCO3 VBG Total CO2 VBG O2 Sat (Calc) VBG Base Excess VBG Potassium Hgb O2 Saturation Sodium Chloride Glucose Lactate Mechanical Rate FiO2 Tidal Volume PEEP Potassium Carbon Dioxide Anion Gap BUN Creatinine Est GFR ( Amer) Est GFR (Non-Af Amer) Random Glucose Hemoglobin A1c Calcium Phosphorus Magnesium Total Bilirubin AST ALT Alkaline Phosphatase Lactate Dehydrogenase Total Creatine Kinase CK-MB (CK-2) CK-MB (CK-2) % Troponin I Total Protein Albumin Globulin Albumin/Globulin Ratio TSH 3rd Generation Arterial Blood Potassium Venous Blood Potassium Urine Color Yellow Urine Appearance Clear Urine pH 5.5 Ur Specific [place] 1.020 Urine Protein Negative Urine Glucose (UA) Negative Urine Ketones Negative Urine Blood Trace-intact H Urine Nitrate Negative Urine Bilirubin Negative Urine Urobilinogen 0.2 Ur Leukocyte Esterase Negative Urine RBC 0 - 2 Urine WBC 0 - 2 Ur Epithelial Cells 0 - 2 Uric Acid Crystals Trace Urine Bacteria Large Hyaline Casts 0 - 2 Ur Random Creatinine Ur Random Sodium Stool Occult Blood Positive H Urine Opiates Screen Positive H Urine Methadone Screen Negative Ur Barbiturates Screen Negative Ur Phencyclidine Scrn Negative Ur Amphetamines Screen Negative U Benzodiazepines Scrn Negative U Oth Cocaine Metabols Negative U Cannabinoids Screen Negative Complement C3 Complement C4 Hepatitis A IgM Ab Hep Bs Antigen Hep B Core IgM Ab Hepatitis C Antibody 02/06/17 02/06/17 02/06/17 18:21 18:38 21:18 WBC RBC Hgb Hct MCV MCH MCHC RDW Plt Count MPV Neutrophils % (Manual) Band Neutrophils % Lymphocytes % (Manual) Monocytes % (Manual) Platelet Evaluation Anisocytosis (manual) Microcytosis (manual) pCO2 37 pO2 170.0 H HCO3 22.4 ABG pH 7.39 ABG Total CO2 23.5 ABG O2 Saturation 99.6 H ABG O2 Content ABG Base Excess -2.2 L ABG Hemoglobin ABG Carboxyhemoglobin POC ABG HHb (Measured) ABG Methemoglobin ABG O2 Capacity ABG Potassium 3.9 VBG pH VBG pCO2 VBG HCO3 VBG Total CO2 VBG O2 Sat (Calc) VBG Base Excess VBG Potassium Hgb O2 Saturation Sodium 143.0 Chloride 108.0 H Glucose 86 Lactate 2.7 H Mechanical Rate 28 FiO2 100.0 Tidal Volume 400 PEEP 5 Potassium Carbon Dioxide Anion Gap BUN Creatinine Est GFR ( Amer) Est GFR (Non-Af Amer) Random Glucose Hemoglobin A1c Calcium Phosphorus Magnesium Total Bilirubin AST ALT Alkaline Phosphatase Lactate Dehydrogenase Total Creatine Kinase CK-MB (CK-2) CK-MB (CK-2) % Troponin I Total Protein Albumin Globulin Albumin/Globulin Ratio TSH 3rd Generation Arterial Blood Potassium 3.9 Venous Blood Potassium Urine Color Urine Appearance Urine pH Ur Specific [place] Urine Protein Urine Glucose (UA) Urine Ketones Urine Blood Urine Nitrate Urine Bilirubin Urine Urobilinogen Ur Leukocyte Esterase Urine RBC Urine WBC Ur Epithelial Cells Uric Acid Crystals Urine Bacteria Hyaline Casts Ur Random Creatinine 18 Ur Random Sodium 43 Stool Occult Blood Urine Opiates Screen Urine Methadone Screen Ur Barbiturates Screen Ur Phencyclidine Scrn Ur Amphetamines Screen U Benzodiazepines Scrn U Oth Cocaine Metabols U Cannabinoids Screen Complement C3 114.0 Complement C4 27.7 Hepatitis A IgM Ab Hep Bs Antigen Hep B Core IgM Ab Hepatitis C Antibody 02/06/17 02/07/17 02/07/17 21:18 05:30 06:14 WBC RBC Hgb Hct MCV MCH MCHC RDW Plt Count MPV Neutrophils % (Manual) Band Neutrophils % Lymphocytes % (Manual) Monocytes % (Manual) Platelet Evaluation Anisocytosis (manual) Microcytosis (manual) pCO2 32 L pO2 35 65.0 L HCO3 20.8 L ABG pH 7.42 ABG Total CO2 21.8 L ABG O2 Saturation 95.8 ABG O2 Content 17.1 ABG Base Excess -2.8 L ABG Hemoglobin 13.0 ABG Carboxyhemoglobin 1.7 H POC ABG HHb (Measured) 4.1 ABG Methemoglobin 0.9 ABG O2 Capacity 17.8 ABG Potassium VBG pH 7.33 VBG pCO2 47.0 VBG HCO3 24.8 VBG Total CO2 26.2 VBG O2 Sat (Calc) 69.2 H VBG Base Excess -1.5 L VBG Potassium 4.0 Hgb O2 Saturation 93.3 L Sodium 141.0 143 Chloride 105.0 107 Glucose 109 Lactate 2.2 H Mechanical Rate FiO2 21.0 50.0 Tidal Volume PEEP Potassium 3.8 Carbon Dioxide 23 Anion Gap 17 BUN 49 H Creatinine 4.7 H Est GFR ( Amer) 16 Est GFR (Non-Af Amer) 13 Random Glucose 128 H Hemoglobin A1c Calcium 8.1 L Phosphorus 4.8 H Magnesium 2.2 Total Bilirubin 0.7 AST 357 H ALT 249 H Alkaline Phosphatase 107 Lactate Dehydrogenase 3017 H Total Creatine Kinase 3003 H CK-MB (CK-2) 55.6 H CK-MB (CK-2) % 1.9 L Troponin I 1.37 H* D Total Protein 6.9 Albumin 3.6 Globulin 3.4 Albumin/Globulin Ratio 1.1 TSH 3rd Generation Arterial Blood Potassium Venous Blood Potassium 4.0 Urine Color Urine Appearance Urine pH Ur Specific [place] Urine Protein Urine Glucose (UA) Urine Ketones Urine Blood Urine Nitrate Urine Bilirubin Urine Urobilinogen Ur Leukocyte Esterase Urine RBC Urine WBC Ur Epithelial Cells Uric Acid Crystals Urine Bacteria Hyaline Casts Ur Random Creatinine Ur Random Sodium Stool Occult Blood Urine Opiates Screen Urine Methadone Screen Ur Barbiturates Screen Ur Phencyclidine Scrn Ur Amphetamines Screen U Benzodiazepines Scrn U Oth Cocaine Metabols U Cannabinoids Screen Complement C3 Complement C4 Hepatitis A IgM Ab Hep Bs Antigen Hep B Core IgM Ab Hepatitis C Antibody 02/07/17 02/07/17 02/07/17 06:14 06:14 06:14 WBC 14.5 H RBC 4.64 Hgb 13.0 L Hct 38.9 L MCV 83.8 MCH 28.0 MCHC 33.4 RDW 15.2 H Plt Count 301 MPV 9.7 Neutrophils % (Manual) 80 H Band Neutrophils % 7 H Lymphocytes % (Manual) 9 L Monocytes % (Manual) 4 Platelet Evaluation Normal Anisocytosis (manual) 1+ Microcytosis (manual) Slight pCO2 pO2 HCO3 ABG pH ABG Total CO2 ABG O2 Saturation ABG O2 Content ABG Base Excess ABG Hemoglobin ABG Carboxyhemoglobin POC ABG HHb (Measured) ABG Methemoglobin ABG O2 Capacity ABG Potassium VBG pH VBG pCO2 VBG HCO3 VBG Total CO2 VBG O2 Sat (Calc) VBG Base Excess VBG Potassium Hgb O2 Saturation Sodium Chloride Glucose Lactate Mechanical Rate FiO2 Tidal Volume PEEP Potassium Carbon Dioxide Anion Gap BUN Creatinine Est GFR ( Amer) Est GFR (Non-Af Amer) Random Glucose Hemoglobin A1c 6.5 Calcium Phosphorus Magnesium Total Bilirubin AST ALT Alkaline Phosphatase Lactate Dehydrogenase Total Creatine Kinase CK-MB (CK-2) CK-MB (CK-2) % Troponin I Total Protein Albumin Globulin Albumin/Globulin Ratio TSH 3rd Generation Arterial Blood Potassium Venous Blood Potassium Urine Color Urine Appearance Urine pH Ur Specific [place] Urine Protein Urine Glucose (UA) Urine Ketones Urine Blood Urine Nitrate Urine Bilirubin Urine Urobilinogen Ur Leukocyte Esterase Urine RBC Urine WBC Ur Epithelial Cells Uric Acid Crystals Urine Bacteria Hyaline Casts Ur Random Creatinine Ur Random Sodium Stool Occult Blood Urine Opiates Screen Urine Methadone Screen Ur Barbiturates Screen Ur Phencyclidine Scrn Ur Amphetamines Screen U Benzodiazepines Scrn U Oth Cocaine Metabols U Cannabinoids Screen Complement C3 Complement C4 Hepatitis A IgM Ab Negative Hep Bs Antigen Negative Hep B Core IgM Ab Negative Hepatitis C Antibody Reactive H 02/07/17 06:14 WBC RBC Hgb Hct MCV MCH MCHC RDW Plt Count MPV Neutrophils % (Manual) Band Neutrophils % Lymphocytes % (Manual) Monocytes % (Manual) Platelet Evaluation Anisocytosis (manual) Microcytosis (manual) pCO2 pO2 HCO3 ABG pH ABG Total CO2 ABG O2 Saturation ABG O2 Content ABG Base Excess ABG Hemoglobin ABG Carboxyhemoglobin POC ABG HHb (Measured) ABG Methemoglobin ABG O2 Capacity ABG Potassium VBG pH VBG pCO2 VBG HCO3 VBG Total CO2 VBG O2 Sat (Calc) VBG Base Excess VBG Potassium Hgb O2 Saturation Sodium Chloride Glucose Lactate Mechanical Rate FiO2 Tidal Volume PEEP Potassium Carbon Dioxide Anion Gap BUN Creatinine Est GFR ( Amer) Est GFR (Non-Af Amer) Random Glucose Hemoglobin A1c Calcium Phosphorus Magnesium Total Bilirubin AST ALT Alkaline Phosphatase Lactate Dehydrogenase Total Creatine Kinase CK-MB (CK-2) CK-MB (CK-2) % Troponin I Total Protein Albumin Globulin Albumin/Globulin Ratio TSH 3rd Generation 0.5 Arterial Blood Potassium Venous Blood Potassium Urine Color Urine Appearance Urine pH Ur Specific [place] Urine Protein Urine Glucose (UA) Urine Ketones Urine Blood Urine Nitrate Urine Bilirubin Urine Urobilinogen Ur Leukocyte Esterase Urine RBC Urine WBC Ur Epithelial Cells Uric Acid Crystals Urine Bacteria Hyaline Casts Ur Random Creatinine Ur Random Sodium Stool Occult Blood Urine Opiates Screen Urine Methadone Screen Ur Barbiturates Screen Ur Phencyclidine Scrn Ur Amphetamines Screen U Benzodiazepines Scrn U Oth Cocaine Metabols U Cannabinoids Screen Complement C3 Complement C4 Hepatitis A IgM Ab Hep Bs Antigen Hep B Core IgM Ab Hepatitis C Antibody Attending/Attestation - Attestation I have personally seen and examined this patient.: Yes I have fully participated in the care of the patient.: Yes I have reviewed all pertinent clinical information: Yes Notes (Text): 02/07/17 14:45 51 yo male with s/p asystolic arrest secondary to what appears to be heroin overdose, now in cardiogenic vs distributive shock with MODS, including respiratory failure, renal failure, anoxic brain injury. Neuro: likely anoxic brain injury--will prognosticate 72 hours after insult. neuro follow up appreciated. No clinical seizures. Wasnt a candidate for TH, but will proceed with low normothermia and avoid hyperthermia CVS: Echo was done while on substantial dose of NE, thus lack of severe LV systolic dysfunction on prelim review (official report is pending) does not rule it out. Will try to swap NE for pure inotropic support and re-assess. Pulm: protective lung vent strategy, avoid fluid overloadm HOB>35. Daily weaning trials and sedation vacation. Neuro status does not allow to consider extubation at present time anyway. GI: will start enteral nutrition, even though preferrably if able to taper pressor support requiriement ID: LLL infiltrate, will add cefepime and continue vanc, but will get level. Will get ID consult. Will get procalcitonin. Aspiration pneumonitis cant rule out ccm time 40 min 02/07/17 15:00
--- NOTE | 2017-02-07 10:54 | RAD ---
HISTORY: intubated COMPARISON: Earlier same day FINDINGS: LUNGS: Endotracheal tube in satisfactory position. The lungs are clear PLEURA: No significant pleural effusion identified, no pneumothorax apparent. CARDIOVASCULAR: Mild cardiomegaly OSSEOUS STRUCTURES: No significant abnormalities. VISUALIZED UPPER ABDOMEN: Normal. OTHER FINDINGS: None. IMPRESSION: No acute findings
[2017-02-07 11:39] LABS: COMPLEMENT C4 27.7 mg/dL (14.0-44.0)
[2017-02-07 12:02] LABS: HEPATITIS B SURFACE AG NEGATIVE (NEGATIVE)
[2017-02-07 12:07] LABS: HEPATITIS A IGM NEGATIVE (NEGATIVE)
[2017-02-07 12:08] LABS: HEPATITIS B CORE AB NEGATIVE (NEGATIVE)
--- NOTE | 2017-02-07 12:44 | RAD ---
HISTORY: intubated, pna COMPARISON: 02/06/2017 FINDINGS: LUNGS: There is a patchy infiltrate in the left lung adjacent to heart border. Endotracheal tube and nasogastric tube are in satisfactory position PLEURA: No significant pleural effusion identified, no pneumothorax apparent. CARDIOVASCULAR: Normal. OSSEOUS STRUCTURES: No significant abnormalities. VISUALIZED UPPER ABDOMEN: Normal. OTHER FINDINGS: None. IMPRESSION: There is a patchy infiltrate in the left lung adjacent to heart border. Endotracheal tube and nasogastric tube are in satisfactory position
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
[2017-02-07 13:31] LABS: HEPATITIS C ANTIBODY REACTIVE (NEGATIVE)
[2017-02-07] MEDS ORDERED: Cefepime 1gm in NS 100ml 1 GM/100 ML BAG IVPB SCH (15:00)
--- NOTE | 2017-02-07 15:28 | US ---
PROCEDURE: Ultrasound of the Kidneys HISTORY: [facility]AL[facility] COMPARISON: CT abdomen and pelvis without oral or IV contrast performed 01/09/17 TECHNIQUE: Sonogram of the kidneys. FINDINGS: Examination markedly limited by habitus. RIGHT KIDNEY: Measures: 11.8 x 5.9 x 6.4 cm. No obstructing calculus or hydronephrosis identified. 1.6 x 1.8 x 1.4 cm hypoechoic avascular structure consistent with cyst in the lower pole. LEFT KIDNEY: Not visualized. OTHER FINDINGS: None. IMPRESSION: The left kidney is not visualized. 1.8 cm probable right lower pole renal cyst.
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
[2017-02-07 18:37] LABS: ARTERIAL BLOOD GAS HCO3 20.5 mmol/L (21-28); ARTERIAL BLOOD GAS PCO2 49 mm/Hg (35-45); ARTERIAL BLOOD GAS PH 7.23 (7.35-7.45)
[2017-02-07] MEDS ORDERED: DAPTOmycin 500 mg Inj (Cubicin) IVP SCH (19:30)
[2017-02-07] MEDS ORDERED: Sodium Chloride 0.9% 1,000 ML IV STA (19:49)
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
[2017-02-07] MEDS: Meropenem 500 MG in Sodium Chloride 0.9% 100 ML IVPB SCH (22:33)
[2017-02-08] MEDS: Meropenem 500 MG in Sodium Chloride 0.9% 100 ML IVPB SCH ×3 (05:04→21:42)
[2017-02-08 06:03] LABS: ARTERIAL BLOOD GAS HCO3 20.1 mmol/L (21-28); ARTERIAL BLOOD GAS HEMOGLOBIN 14.1 g/dL (11.7-17.4); ARTERIAL BLOOD GAS O2 CAPACITY 19.4 mL/dl (16-24); ARTERIAL BLOOD GAS O2 CONTENT 18.5 ML/dl (15-23); ARTERIAL BLOOD GAS O2 SAT 95.4 % (95-98); ARTERIAL BLOOD GAS PCO2 59 mm/Hg (35-45); ARTERIAL BLOOD GAS TCO2 21.9 mmol.L (22-28)
[2017-02-08 06:07] LABS: ARTERIAL BLOOD GAS PH 7.14 (7.35-7.45)
[2017-02-08 06:55] LABS: BASO # 0.02 K/mm3 (0.0-2.0); BASO % 0.2 % (0.0-3.0); EOS # 0.3 (0.0-0.7); EOS % 2.9 % (1.5-5.0); GRAN # 8.67 (1.4-6.5); GRAN % 79.9 % (50.0-68.0); HEMOGLOBIN 11.4 gm/dL (14.0-18.0); LYMPH # 1.3 (1.2-3.4); LYMPH % 11.8 % (22.0-35.0); MEAN CELL VOLUME 87.5 fL (80.0-105.0); MEAN CORPUSCULAR HEMOGLOBIN 27.4 pg (25.0-35.0); MEAN CORPUSCULAR HGB CONC 31.3 g/dl (31.0-37.0); MEAN PLATELET VOLUME 9.4 fl (7.0-11.0); MONO # 0.6 (0.1-0.6); MONO % 5.2 % (1.0-6.0); PLATELET COUNT 185 10^3/uL (120.0-450.0); RBC 4.16 10^6/uL (3.5-6.1); RED CELL DISTRIBUTION WIDTH 16.1 % (11.5-14.5); WHITE BLOOD COUNT 10.9 10^3/ul (4.5-11.0)
[2017-02-08 07:16] LABS: ALBUMIN 2.9 g/dL (3.0-4.8); CALCIUM 7.8 mg/dL (8.4-10.5); MAGNESIUM 2.1 mg/dL (1.7-2.2)
--- NOTE | 2017-02-08 07:16 | CP.CCUPN ---
<Lidia Vega - Last Filed: 02/08/17 14:07> CCU Subjective - Physician Review Subjective (Free Text): 02/07/17 10:29 Pt breath on his own at 12. U/O overnight 700/12 hrs. by bedside 02/08/17 13:58 by bedside. Neuro status unchanged Still require 100 FiO2 appreciated hospital [facility] visit CCU Objective - Vital Signs / Intake & Output Vital Signs (Last 4 hours): Vital Signs Temp Pulse BP Pulse Ox 02/08/17 04:50 97.5 F L 112 H 94 L 02/08/17 04:45 97.3 F L 112 H 113/69 94 L 02/08/17 04:40 97.3 F L 112 H 94 L 02/08/17 04:30 97.3 F L 111 H 115/68 94 L 02/08/17 04:20 97.2 F L 110 H 94 L 02/08/17 04:15 97.2 F L 110 H 119/68 94 L 02/08/17 04:10 97.0 F L 109 H 94 L 02/08/17 04:00 97.0 F L 109 H 120/71 94 L 02/08/17 03:50 97.0 F L 109 H 94 L 02/08/17 03:45 96.8 F L 108 H 125/70 94 L 02/08/17 03:40 96.8 F L 108 H 94 L 02/08/17 03:30 96.6 F L 108 H 122/69 94 L 02/08/17 03:20 96.6 F L 107 H 94 L Intake and Output (Last 8hrs): Intake & Output 02/07/17 02/08/17 02/08/17 22:59 06:59 14:59 Intake Total 466 2322 Output Total 700 1550 Balance -234 772 Intake: IV 116 2322 Right Femoral 2102 Oral 0 Other 350 Output: Gastric Amount 1100 Nares 1100 Urine 50 150 Urethral (Garcia) 50 150 Stool 300 Other 650 Other: Voiding Method Indwelling Catheter # Bowel Movements 75 - Physical Exam Head: Positive for: Atraumatic, Normocephalic Pupils: Positive for: Non-Reactive, Other (4mm) Conjunctiva: Negative for: Injected, Icteric Mouth: Positive for: Moist Mucous Membranes Respiratory/Chest: Positive for: Rales. Negative for: Wheezes, Rhonchi Cardiovascular: Positive for: Regular Rate and Rhythm, Normal S1, S2 Abdomen: Positive for: Distention, Normal Bowel Sounds, Other (rectal tube in place - dark watery drainage; NG tube on LIS, 650 bilous gastric content) Rectal: Positive for: Occult Blood, Melena Upper Extremity: Positive for: Edema Lower Extremity: Positive for: Edema. Negative for: NORMAL PULSES (diminished DP +1 b/l) Neurological: Positive for: Other (no doll's eye, no gag). Negative for: GCS= 15 (3) Skin: Positive for: Other (cool, dry) - Medications Active Medications: Active Medications Generic Name Dose Route Start Last Admin Trade Name Freq PRN Reason Stop Dose Admin Aspirin 325 mg 02/07/17 10:00 02/07/17 10:24 Aspirin PO 325 mg DAILY CHUCHO Administration Heparin Sodium (Porcine) 5,000 units 02/06/17 22:00 02/08/17 05:40 Heparin SC 5,000 units Q8 CHUCHO Administration Protocol NOREPINEPHRINE BIT/0.9 % NACL 4 mg in 250 mls @ 15 mls/hr 02/06/17 15:09 05:50 Levophed 4 Mg/ 250 Ml Ns Premixed IV 3 mcg/min .[id number] PRN 11.25 mls/hr TITRATE PER MD ORDER Titration Protocol 4 MCG/MIN Sodium Chloride 1,000 mls @ 100 mls/hr 02/06/17 19:00 02/07/17 20:03 Sodium Chloride 0.9% IV 100 mls/hr .Q10H CHUCHO Administration Daptomycin 790 mg/ Sodium 100 mls @ 200 mls/hr 02/07/17 19:45 02/07/17 22:00 Chloride IV 02/16/17 19:46 200 mls/hr Q48H CHUCHO Administration Meropenem 500 mg/ Sodium 100 mls @ 100 mls/hr 02/07/17 22:00 02/08/17 05:04 Chloride IVPB 02/16/17 22:01 100 mls/hr Q8 CHUCHO Administration Protocol Lorazepam 1 mg 02/06/17 18:19 02/06/17 22:29 Ativan IVP 1 mg Q2H PRN Administration Seizure activity Protocol Pantoprazole Sodium 40 mg 02/07/17 10:00 02/07/17 09:45 Protonix Inj IVP 40 mg DAILY CHUCHO Administration - Patient Studies Lab Studies: Microbiology Studies 02/06/17 17:15 MRSA Culture (Admit) - Final Nose MRSA NOT DETECTED 02/06/17 15:00 Urine Culture - Final Urine No Growth (<1,000 CFU/ML) 02/06/17 16:00 C. difficile Antigen & Toxin A,B (M - Final Stool Lab Studies 02/08/17 02/08/17 02/07/17 Range/Units 06:45 05:45 18:29 WBC 10.9 D (4.5-11.0) 10^3/ul RBC 4.16 (3.5-6.1) 10^6/uL Hgb 11.4 L (14.0-18.0) gm/dL Hct 36.4 L (42.0-52.0) % MCV 87.5 (80.0-105.0) fL MCH 27.4 (25.0-35.0) pg MCHC 31.3 (31.0-37.0) g/dl RDW 16.1 H (11.5-14.5) % Plt Count 185 (120.0-450.0) 10^3/uL MPV 9.4 (7.0-11.0) fl Gran % 79.9 H (50.0-68.0) % Lymph % (Auto) 11.8 L (22.0-35.0) % [place] % (Auto) 5.2 (1.0-6.0) % Eos % (Auto) 2.9 (1.5-5.0) % Baso % (Auto) 0.2 (0.0-3.0) % Gran # 8.67 H (1.4-6.5) Lymph # 1.3 (1.2-3.4) [place] # 0.6 (0.1-0.6) Eos # 0.3 (0.0-0.7) Baso # 0.02 (0.0-2.0) K/mm3 Neutrophils % (Manual) (50.0-70.0) % Band Neutrophils % (0-2) % Lymphocytes % (Manual) (22.0-35.0) % Monocytes % (Manual) (1.0-6.0) % Platelet Evaluation (NORMAL) Anisocytosis (manual) Microcytosis (manual) pCO2 59 H 49 H (35-45) mm/Hg pO2 74.0 L 62.0 L (80-100) mm/Hg HCO3 20.1 L 20.5 L (21-28) mmol/L ABG pH 7.14 L* 7.23 L (7.35-7.45) ABG Total CO2 21.9 L 22.0 (22-28) mmol.L ABG O2 Saturation 95.4 92.0 L (95-98) % ABG O2 Content 18.5 (15-23) ML/dl ABG Base Excess -9.6 L -7.2 L (-2.0-3.0) mmol/L ABG Hemoglobin 14.1 (11.7-17.4) g/dL ABG Carboxyhemoglobin 1.5 (0.5-1.5) % POC ABG HHb (Measured) 4.5 (0-5) % ABG Methemoglobin 0.7 (0.0-3.0) % ABG O2 Capacity 19.4 (16-24) mL/dl ABG Potassium 3.7 (3.6-5.2) mmol/L Hgb O2 Saturation 93.2 L (95.0-98.0) % Sodium 143.0 (132-148) mmol/L Chloride 111.0 H (98-107) mmol/L Glucose 111 H (75-110) mg/dl Lactate 1.0 (0.7-2.1) mmol/L Mechanical Rate 20 FiO2 100.0 100.0 % Tidal Volume 400 PEEP 10 Hemoglobin A1c (4.2-6.5) % CK-MB (CK-2) (0.0-3.6) ng/mL CK-MB (CK-2) % (2.5-3.0) % Troponin I ng/mL TSH 3rd Generation (0.46-4.68) MIU/ml Arterial Blood Potassium 3.7 (3.6-5.2) mmol/L U Random Total Protein (22-128) mg/g creat Stool Leukocytes, Qual (NEGATIVE) Complement C3 (88.0-165.0) mg/dL Complement C4 (14.0-44.0) mg/dL Hepatitis A IgM Ab (NEGATIVE) Hep Bs Antigen (NEGATIVE) Hep B Core IgM Ab (NEGATIVE) Hepatitis C Antibody (NEGATIVE) HIV 1&2 Ag/Ab, 4th Gen (Nonreactive) 02/07/17 02/07/17 02/07/17 Range/Units 06:14 06:14 06:14 WBC (4.5-11.0) 10^3/ul RBC (3.5-6.1) 10^6/uL Hgb (14.0-18.0) gm/dL Hct (42.0-52.0) % MCV (80.0-105.0) fL MCH (25.0-35.0) pg MCHC (31.0-37.0) g/dl RDW (11.5-14.5) % Plt Count (120.0-450.0) 10^3/uL MPV (7.0-11.0) fl Gran % (50.0-68.0) % Lymph % (Auto) (22.0-35.0) % [place] % (Auto) (1.0-6.0) % Eos % (Auto) (1.5-5.0) % Baso % (Auto) (0.0-3.0) % Gran # (1.4-6.5) Lymph # (1.2-3.4) [place] # (0.1-0.6) Eos # (0.0-0.7) Baso # (0.0-2.0) K/mm3 Neutrophils % (Manual) 80 H (50.0-70.0) % Band Neutrophils % 7 H (0-2) % Lymphocytes % (Manual) 9 L (22.0-35.0) % Monocytes % (Manual) 4 (1.0-6.0) % Platelet Evaluation Normal (NORMAL) Anisocytosis (manual) 1+ Microcytosis (manual) Slight pCO2 (35-45) mm/Hg pO2 (80-100) mm/Hg HCO3 (21-28) mmol/L ABG pH (7.35-7.45) ABG Total CO2 (22-28) mmol.L ABG O2 Saturation (95-98) % ABG O2 Content (15-23) ML/dl ABG Base Excess (-2.0-3.0) mmol/L ABG Hemoglobin (11.7-17.4) g/dL ABG Carboxyhemoglobin (0.5-1.5) % POC ABG HHb (Measured) (0-5) % ABG Methemoglobin (0.0-3.0) % ABG O2 Capacity (16-24) mL/dl ABG Potassium (3.6-5.2) mmol/L Hgb O2 Saturation (95.0-98.0) % Sodium (132-148) mmol/L Chloride (98-107) mmol/L Glucose (75-110) mg/dl Lactate (0.7-2.1) mmol/L Mechanical Rate FiO2 % Tidal Volume PEEP Hemoglobin A1c 6.5 (4.2-6.5) % CK-MB (CK-2) (0.0-3.6) ng/mL CK-MB (CK-2) % (2.5-3.0) % Troponin I ng/mL TSH 3rd Generation 0.5 (0.46-4.68) MIU/ml Arterial Blood Potassium (3.6-5.2) mmol/L U Random Total Protein (22-128) mg/g creat Stool Leukocytes, Qual (NEGATIVE) Complement C3 (88.0-165.0) mg/dL Complement C4 (14.0-44.0) mg/dL Hepatitis A IgM Ab (NEGATIVE) Hep Bs Antigen (NEGATIVE) Hep B Core IgM Ab (NEGATIVE) Hepatitis C Antibody (NEGATIVE) HIV 1&2 Ag/Ab, 4th Gen (Nonreactive) 02/07/17 02/07/17 02/07/17 Range/Units 06:14 06:14 06:14 WBC (4.5-11.0) 10^3/ul RBC (3.5-6.1) 10^6/uL Hgb (14.0-18.0) gm/dL Hct (42.0-52.0) % MCV (80.0-105.0) fL MCH (25.0-35.0) pg MCHC (31.0-37.0) g/dl RDW (11.5-14.5) % Plt Count (120.0-450.0) 10^3/uL MPV (7.0-11.0) fl Gran % (50.0-68.0) % Lymph % (Auto) (22.0-35.0) % [place] % (Auto) (1.0-6.0) % Eos % (Auto) (1.5-5.0) % Baso % (Auto) (0.0-3.0) % Gran # (1.4-6.5) Lymph # (1.2-3.4) [place] # (0.1-0.6) Eos # (0.0-0.7) Baso # (0.0-2.0) K/mm3 Neutrophils % (Manual) (50.0-70.0) % Band Neutrophils % (0-2) % Lymphocytes % (Manual) (22.0-35.0) % Monocytes % (Manual) (1.0-6.0) % Platelet Evaluation (NORMAL) Anisocytosis (manual) Microcytosis (manual) pCO2 (35-45) mm/Hg pO2 (80-100) mm/Hg HCO3 (21-28) mmol/L ABG pH (7.35-7.45) ABG Total CO2 (22-28) mmol.L ABG O2 Saturation (95-98) % ABG O2 Content (15-23) ML/dl ABG Base Excess (-2.0-3.0) mmol/L ABG Hemoglobin (11.7-17.4) g/dL ABG Carboxyhemoglobin (0.5-1.5) % POC ABG HHb (Measured) (0-5) % ABG Methemoglobin (0.0-3.0) % ABG O2 Capacity (16-24) mL/dl ABG Potassium (3.6-5.2) mmol/L Hgb O2 Saturation (95.0-98.0) % Sodium (132-148) mmol/L Chloride (98-107) mmol/L Glucose (75-110) mg/dl Lactate (0.7-2.1) mmol/L Mechanical Rate FiO2 % Tidal Volume PEEP Hemoglobin A1c (4.2-6.5) % CK-MB (CK-2) 55.6 H (0.0-3.6) ng/mL CK-MB (CK-2) % 1.9 L (2.5-3.0) % Troponin I 1.37 H* D ng/mL TSH 3rd Generation (0.46-4.68) MIU/ml Arterial Blood Potassium (3.6-5.2) mmol/L U Random Total Protein (22-128) mg/g creat Stool Leukocytes, Qual (NEGATIVE) Complement C3 (88.0-165.0) mg/dL Complement C4 (14.0-44.0) mg/dL Hepatitis A IgM Ab Negative (NEGATIVE) Hep Bs Antigen Negative (NEGATIVE) Hep B Core IgM Ab Negative (NEGATIVE) Hepatitis C Antibody Reactive H (NEGATIVE) HIV 1&2 Ag/Ab, 4th Gen Nonreactive (Nonreactive) 02/07/17 02/06/17 02/06/17 Range/Units 01:01 21:18 16:00 WBC (4.5-11.0) 10^3/ul RBC (3.5-6.1) 10^6/uL Hgb (14.0-18.0) gm/dL Hct (42.0-52.0) % MCV (80.0-105.0) fL MCH (25.0-35.0) pg MCHC (31.0-37.0) g/dl RDW (11.5-14.5) % Plt Count (120.0-450.0) 10^3/uL MPV (7.0-11.0) fl Gran % (50.0-68.0) % Lymph % (Auto) (22.0-35.0) % [place] % (Auto) (1.0-6.0) % Eos % (Auto) (1.5-5.0) % Baso % (Auto) (0.0-3.0) % Gran # (1.4-6.5) Lymph # (1.2-3.4) [place] # (0.1-0.6) Eos # (0.0-0.7) Baso # (0.0-2.0) K/mm3 Neutrophils % (Manual) (50.0-70.0) % Band Neutrophils % (0-2) % Lymphocytes % (Manual) (22.0-35.0) % Monocytes % (Manual) (1.0-6.0) % Platelet Evaluation (NORMAL) Anisocytosis (manual) Microcytosis (manual) pCO2 (35-45) mm/Hg pO2 (80-100) mm/Hg HCO3 (21-28) mmol/L ABG pH (7.35-7.45) ABG Total CO2 (22-28) mmol.L ABG O2 Saturation (95-98) % ABG O2 Content (15-23) ML/dl ABG Base Excess (-2.0-3.0) mmol/L ABG Hemoglobin (11.7-17.4) g/dL ABG Carboxyhemoglobin (0.5-1.5) % POC ABG HHb (Measured) (0-5) % ABG Methemoglobin (0.0-3.0) % ABG O2 Capacity (16-24) mL/dl ABG Potassium (3.6-5.2) mmol/L Hgb O2 Saturation (95.0-98.0) % Sodium (132-148) mmol/L Chloride (98-107) mmol/L Glucose (75-110) mg/dl Lactate (0.7-2.1) mmol/L Mechanical Rate FiO2 % Tidal Volume PEEP Hemoglobin A1c (4.2-6.5) % CK-MB (CK-2) (0.0-3.6) ng/mL CK-MB (CK-2) % (2.5-3.0) % Troponin I ng/mL TSH 3rd Generation (0.46-4.68) MIU/ml Arterial Blood Potassium (3.6-5.2) mmol/L U Random Total Protein 5697 H (22-128) mg/g creat Stool Leukocytes, Qual Negative (NEGATIVE) Complement C3 114.0 (88.0-165.0) mg/dL Complement C4 27.7 (14.0-44.0) mg/dL Hepatitis A IgM Ab (NEGATIVE) Hep Bs Antigen (NEGATIVE) Hep B Core IgM Ab (NEGATIVE) Hepatitis C Antibody (NEGATIVE) HIV 1&2 Ag/Ab, 4th Gen (Nonreactive) Laboratory Results - last 24 hr 02/06/17 02/06/17 02/07/17 16:00 21:18 01:01 WBC RBC Hgb Hct MCV MCH MCHC RDW Plt Count MPV Gran % Lymph % (Auto) [place] % (Auto) Eos % (Auto) Baso % (Auto) Gran # Lymph # [place] # Eos # Baso # Neutrophils % (Manual) Band Neutrophils % Lymphocytes % (Manual) Monocytes % (Manual) Platelet Evaluation Anisocytosis (manual) Microcytosis (manual) pCO2 pO2 HCO3 ABG pH ABG Total CO2 ABG O2 Saturation ABG O2 Content ABG Base Excess ABG Hemoglobin ABG Carboxyhemoglobin POC ABG HHb (Measured) ABG Methemoglobin ABG O2 Capacity ABG Potassium Hgb O2 Saturation Sodium Chloride Glucose Lactate Mechanical Rate FiO2 Tidal Volume PEEP Hemoglobin A1c CK-MB (CK-2) CK-MB (CK-2) % Troponin I TSH 3rd Generation Arterial Blood Potassium U Random Total Protein 5697 H Stool Leukocytes, Qual Negative Complement C3 114.0 Complement C4 27.7 Hepatitis A IgM Ab Hep Bs Antigen Hep B Core IgM Ab Hepatitis C Antibody HIV 1&2 Ag/Ab, 4th Gen 02/07/17 02/07/17 02/07/17 06:14 06:14 06:14 WBC RBC Hgb Hct MCV MCH MCHC RDW Plt Count MPV Gran % Lymph % (Auto) [place] % (Auto) Eos % (Auto) Baso % (Auto) Gran # Lymph # [place] # Eos # Baso # Neutrophils % (Manual) Band Neutrophils % Lymphocytes % (Manual) Monocytes % (Manual) Platelet Evaluation Anisocytosis (manual) Microcytosis (manual) pCO2 pO2 HCO3 ABG pH ABG Total CO2 ABG O2 Saturation ABG O2 Content ABG Base Excess ABG Hemoglobin ABG Carboxyhemoglobin POC ABG HHb (Measured) ABG Methemoglobin ABG O2 Capacity ABG Potassium Hgb O2 Saturation Sodium Chloride Glucose Lactate Mechanical Rate FiO2 Tidal Volume PEEP Hemoglobin A1c CK-MB (CK-2) 55.6 H CK-MB (CK-2) % 1.9 L Troponin I 1.37 H* D TSH 3rd Generation Arterial Blood Potassium U Random Total Protein Stool Leukocytes, Qual Complement C3 Complement C4 Hepatitis A IgM Ab Negative Hep Bs Antigen Negative Hep B Core IgM Ab Negative Hepatitis C Antibody Reactive H HIV 1&2 Ag/Ab, 4th Gen Nonreactive 02/07/17 02/07/17 02/07/17 06:14 06:14 06:14 WBC RBC Hgb Hct MCV MCH MCHC RDW Plt Count MPV Gran % Lymph % (Auto) [place] % (Auto) Eos % (Auto) Baso % (Auto) Gran # Lymph # [place] # Eos # Baso # Neutrophils % (Manual) 80 H Band Neutrophils % 7 H Lymphocytes % (Manual) 9 L Monocytes % (Manual) 4 Platelet Evaluation Normal Anisocytosis (manual) 1+ Microcytosis (manual) Slight pCO2 pO2 HCO3 ABG pH ABG Total CO2 ABG O2 Saturation ABG O2 Content ABG Base Excess ABG Hemoglobin ABG Carboxyhemoglobin POC ABG HHb (Measured) ABG Methemoglobin ABG O2 Capacity ABG Potassium Hgb O2 Saturation Sodium Chloride Glucose Lactate Mechanical Rate FiO2 Tidal Volume PEEP Hemoglobin A1c 6.5 CK-MB (CK-2) CK-MB (CK-2) % Troponin I TSH 3rd Generation 0.5 Arterial Blood Potassium U Random Total Protein Stool Leukocytes, Qual Complement C3 Complement C4 Hepatitis A IgM Ab Hep Bs Antigen Hep B Core IgM Ab Hepatitis C Antibody HIV 1&2 Ag/Ab, 4th Gen 02/07/17 02/08/17 02/08/17 18:29 05:45 06:45 WBC 10.9 D RBC 4.16 Hgb 11.4 L Hct 36.4 L MCV 87.5 MCH 27.4 MCHC 31.3 RDW 16.1 H Plt Count 185 MPV 9.4 Gran % 79.9 H Lymph % (Auto) 11.8 L [place] % (Auto) 5.2 Eos % (Auto) 2.9 Baso % (Auto) 0.2 Gran # 8.67 H Lymph # 1.3 [place] # 0.6 Eos # 0.3 Baso # 0.02 Neutrophils % (Manual) Band Neutrophils % Lymphocytes % (Manual) Monocytes % (Manual) Platelet Evaluation Anisocytosis (manual) Microcytosis (manual) pCO2 49 H 59 H pO2 62.0 L 74.0 L HCO3 20.5 L 20.1 L ABG pH 7.23 L 7.14 L* ABG Total CO2 22.0 21.9 L ABG O2 Saturation 92.0 L 95.4 ABG O2 Content 18.5 ABG Base Excess -7.2 L -9.6 L ABG Hemoglobin 14.1 ABG Carboxyhemoglobin 1.5 POC ABG HHb (Measured) 4.5 ABG Methemoglobin 0.7 ABG O2 Capacity 19.4 ABG Potassium 3.7 Hgb O2 Saturation 93.2 L Sodium 143.0 Chloride 111.0 H Glucose 111 H Lactate 1.0 Mechanical Rate 20 FiO2 100.0 100.0 Tidal Volume 400 PEEP 10 Hemoglobin A1c CK-MB (CK-2) CK-MB (CK-2) % Troponin I TSH 3rd Generation Arterial Blood Potassium 3.7 U Random Total Protein Stool Leukocytes, Qual Complement C3 Complement C4 Hepatitis A IgM Ab Hep Bs Antigen Hep B Core IgM Ab Hepatitis C Antibody HIV 1&2 Ag/Ab, 4th Gen Fingerstick Blood Sugar Results: 203 Assessment/Plan - Assessment and Plan (Free Text) Plan: 51 M with Hx heroine abuse, Hx non-obstructive CAD, s/p asystole arrest suspicious of heroine overdose, Pt coded 4 times, with respiratory failure, intubated in the field. Pt is now in cardiogenic vs distributive shock with MODS with multiorgan damages - diffuse anoxic brain injury, NSTEMI, hypotension requiring levophed, shock liver, ROSALIO due to ATN/hypotension, gastroparesis, profuse diarrhea. Pt is possible septic from gram (+) bacteremia vs aspiration pneumonitis vs GI etiology. pt is able to breath on his own @ 8-11. He is not brain . Plan to do cerbral purfusion scan. will prognosticate 72 hours after insult Neuro Ativan 1q2 prn myoclonus gtt. Intubated; Not on sedation EEG: vernon suppresion consistent with anoxic brain injury Neuro check q1 seizure/Aspiration precaution If (+) seizure, ativan prn, Precedex drip if needed. Watch increase ICP, brain edema Pulm Hypoxic hypercapic respiratory failure Volume control 100%/Peep 10/RR 28/TV400 Not a candidate for SBT Lasix 80 IV x 1 NS@100 Duoneb as needed daily abg, cxr Maintain SaO2 above 90 protective lung vent strategy, avoid fluid overloadm HOB>35. Daily weaning trials and sedation vacation. Card NSTEMI, Inferior TWI. Heparin SC q8. No plan to cath Could be in cardiogenic shock Echo done on NE, may lack of severe LV systolic dysfunction Levophed at 5 mcg now for BP GI Gastroparesis, suction 560 cc bilous content yesterday May start enteral nutrition tomorrow slow and check residueal, even though preferrably if able to taper pressor support requiriement rectal tube NPO for now Protonix IV daily /nephro ROSALIO workup: Fena 30 consistent with ATN due to shock Endo a1c 6.5 tsh 0.5 ISSS q8, accucheck q8 Heme Transfuse if Hb < 10 Infectious On dapto, merrem Gram (+) bacteremia x 2 bottles, adding dapto, redraw blood culture x 2 LLL infiltrate, (+) hep c Lactate trending down Maintain nomothernia below 98.7 (93-95F permissiable) If fever, cooling blanker PRN Will get new IJ triple lumen Prophylaxis - heparin SC q8, protonix IV daily Disposition Continue to observe for 1 more day to determine neuro status Consider [place] [facility], Mr. Marquez, Consult [place] - Dr. Nieves Cardio - Dr. Ramírez Palliative consult S/r/d/s Dr. Jordan - Date & Time Date: 02/08/17 Time: 07:15 <Julian SU,Cornel H - Last Filed: 02/08/17 17:39> CCU Objective - Vital Signs / Intake & Output Vital Signs (Last 4 hours): Vital Signs Temp Pulse Resp BP Pulse Ox 02/08/17 17:27 97.9 F 110 H 97 02/08/17 17:26 97.9 F 110 H 97 02/08/17 17:25 97.9 F 110 H 97 02/08/17 17:24 97.9 F 110 H 97 02/08/17 17:23 97.9 F 110 H 97 02/08/17 17:22 98.1 F 110 H 97 02/08/17 17:21 98.1 F 110 H 97 02/08/17 17:20 97.9 F 111 H 97 02/08/17 17:19 97.9 F 110 H 97 02/08/17 17:18 97.9 F 110 H 97 02/08/17 17:17 97.9 F 110 H 97 02/08/17 17:16 97.9 F 110 H 97 02/08/17 17:12 97.9 F 109 H 97 02/08/17 17:10 97.9 F 110 H 28 H 97 02/08/17 17:09 97.9 F 110 H 97 02/08/17 17:02 97.7 F 110 H 97 02/08/17 17:01 97.7 F 110 H 97 02/08/17 17:00 97.7 F 110 H 28 H 97 02/08/17 16:50 97.7 F 110 H 28 H 98 02/08/17 16:40 97.7 F 110 H 29 H 98 02/08/17 16:30 98.1 F 110 H 28 H 97 02/08/17 16:20 98.1 F 110 H 28 H 94 L 02/08/17 16:10 98.1 F 111 H 98 02/08/17 16:07 98.2 F 111 H 98 02/08/17 16:01 98.2 F 112 H 98 02/08/17 16:00 98.2 F 112 H 28 H 125/80 97 02/08/17 15:50 98.2 F 110 H 29 H 97 02/08/17 15:45 98.2 F 111 H 28 H 107/70 97 02/08/17 15:42 98.2 F 110 H 28 H 104/65 97 02/08/17 15:40 98.2 F 02/08/17 15:00 109 H 02/08/17 14:43 98.2 F 96 02/08/17 14:42 98.2 F 96 02/08/17 14:40 98.2 F 111 H 28 H 95 02/08/17 14:30 98.2 F 111 H 27 H 110/71 95 02/08/17 14:20 98.2 F 111 H 28 H 95 02/08/17 14:15 98.2 F 111 H 28 H 110/61 95 02/08/17 14:10 98.2 F 111 H 28 H 94 L 02/08/17 14:00 98.2 F 111 H 29 H 111/71 95 02/08/17 13:50 98.2 F 112 H 28 H 95 02/08/17 13:45 98.2 F 112 H 29 H 106/71 95 02/08/17 13:40 98.1 F 112 H 28 H 95 Intake and Output (Last 8hrs): Intake & Output 02/08/17 02/08/17 02/08/17 06:59 14:59 22:59 Intake Total 2322 Output Total 1550 Balance 772 Weight 285 lb Intake: IV 2322 Right Femoral 2102 Oral 0 Output: Gastric Amount 1100 Nares 1100 Urine 150 Urethral (Garcia) 150 Stool 300 Other: Voiding Method Indwelling Catheter - Medications Active Medications: Active Medications Generic Name Dose Route Start Last Admin Trade Name Chris PRN Reason Stop Dose Admin Aspirin 325 mg 02/07/17 10:00 02/08/17 09:50 Aspirin PO 325 mg DAILY CHUCHO Administration Heparin Sodium (Porcine) 5,000 units 02/06/17 22:00 02/08/17 05:40 Heparin SC 5,000 units Q8 CHUCHO Administration Protocol NOREPINEPHRINE BIT/0.9 % NACL 4 mg in 250 mls @ 15 mls/hr 02/06/17 15:09 05:50 Levophed 4 Mg/ 250 Ml Ns Premixed IV 3 mcg/min .[id number] PRN 11.25 mls/hr TITRATE PER MD ORDER Titration Protocol 4 MCG/MIN Sodium Chloride 1,000 mls @ 100 mls/hr 02/06/17 19:00 02/07/17 20:03 Sodium Chloride 0.9% IV 100 mls/hr .Q10H [facility] Administration Daptomycin 790 mg/ Sodium 100 mls @ 200 mls/hr 02/07/17 19:45 02/07/17 22:00 Chloride IV 02/16/17 19:46 200 mls/hr Q48H [facility] Administration Meropenem 500 mg/ Sodium 100 mls @ 100 mls/hr 02/07/17 22:00 02/08/17 13:53 Chloride IVPB 02/16/17 22:01 100 mls/hr Q8 [facility] Administration Protocol Lorazepam 1 mg 02/06/17 18:19 02/06/17 22:29 Ativan IVP 1 mg Q2H PRN Administration Seizure activity Protocol Pantoprazole Sodium 40 mg 02/07/17 10:00 02/08/17 09:49 Protonix Inj IVP 40 mg DAILY [facility] Administration - Patient Studies Lab Studies: Microbiology Studies 02/06/17 16:00 Ova and Parasite Concentrate Exam - Final Stool C. difficile Antigen & Toxin A,B (M - Final 02/06/17 17:15 MRSA Culture (Admit) - Final Nose MRSA NOT DETECTED 02/06/17 15:00 Urine Culture - Final Urine No Growth (<1,000 CFU/ML) Lab Studies 02/08/17 02/08/17 02/08/17 Range/Units 12:00 11:30 06:45 WBC (4.5-11.0) 10^3/ul RBC (3.5-6.1) 10^6/uL Hgb (14.0-18.0) gm/dL Hct (42.0-52.0) % MCV (80.0-105.0) fL MCH (25.0-35.0) pg MCHC (31.0-37.0) g/dl RDW (11.5-14.5) % Plt Count (120.0-450.0) 10^3/uL MPV (7.0-11.0) fl Gran % (50.0-68.0) % Lymph % (Auto) (22.0-35.0) % [place] % (Auto) (1.0-6.0) % Eos % (Auto) (1.5-5.0) % Baso % (Auto) (0.0-3.0) % Gran # (1.4-6.5) Lymph # (1.2-3.4) [place] # (0.1-0.6) Eos # (0.0-0.7) Baso # (0.0-2.0) K/mm3 PT 12.3 H (9.9-11.8) Seconds INR 1.14 H (0.93-1.08) pCO2 37 (35-45) mm/Hg pO2 76.0 L (80-100) mm/Hg HCO3 17.0 L (21-28) mmol/L ABG pH 7.27 L (7.35-7.45) ABG Total CO2 18.1 L (22-28) mmol.L ABG O2 Saturation 97.3 (95-98) % ABG O2 Content 14.9 L (15-23) ML/dl ABG Base Excess -9.2 L (-2.0-3.0) mmol/L ABG Hemoglobin 11.1 L (11.7-17.4) g/dL ABG Carboxyhemoglobin 1.3 (0.5-1.5) % POC ABG HHb (Measured) 2.6 (0-5) % ABG Methemoglobin 1.1 (0.0-3.0) % ABG O2 Capacity 15.3 L (16-24) mL/dl ABG Potassium (3.6-5.2) mmol/L Hgb O2 Saturation 95.0 (95.0-98.0) % Sodium 143 (132-148) mmol/L Chloride 112 H (98-107) mmol/L Glucose (75-110) mg/dl Lactate (0.7-2.1) mmol/L Mechanical Rate FiO2 100.0 % Tidal Volume PEEP Potassium 3.7 (3.6-5.0) mmol/L Carbon Dioxide 22 (21-33) mmol/L Anion Gap 13 (10-20) BUN 55 H (7-21) mg/dL Creatinine 7.3 H (0.5-1.4) mg/dL Est GFR ( Amer) 10 Est GFR (Non-Af Amer) 8 Random Glucose 104 (70-110) mg/dL Calcium 7.8 L (8.4-10.5) mg/dL Phosphorus 7.4 H (2.5-4.5) mg/dL Magnesium 2.1 (1.7-2.2) mg/dL Total Bilirubin 0.6 (0.2-1.3) mg/dL AST 116 H (15-59) U/L ALT 153 H (7-56) U/L Alkaline Phosphatase 91 (38-133) U/L Total Protein 5.8 (5.8-8.3) g/dL Albumin 2.9 L (3.0-4.8) g/dL Globulin 2.9 gm/dL Albumin/Globulin Ratio 1.0 L (1.1-1.8) Procalcitonin (0.19-0.49) NG/ML Arterial Blood Potassium (3.6-5.2) mmol/L U Random Total Protein (22-128) mg/g creat HIV 1&2 Ag/Ab, 4th Gen (Nonreactive) 02/08/17 02/08/17 02/08/17 Range/Units 06:45 06:45 05:45 WBC 10.9 D (4.5-11.0) 10^3/ul RBC 4.16 (3.5-6.1) 10^6/uL Hgb 11.4 L (14.0-18.0) gm/dL Hct 36.4 L (42.0-52.0) % MCV 87.5 (80.0-105.0) fL MCH 27.4 (25.0-35.0) pg MCHC 31.3 (31.0-37.0) g/dl RDW 16.1 H (11.5-14.5) % Plt Count 185 (120.0-450.0) 10^3/uL MPV 9.4 (7.0-11.0) fl Gran % 79.9 H (50.0-68.0) % Lymph % (Auto) 11.8 L (22.0-35.0) % [place] % (Auto) 5.2 (1.0-6.0) % Eos % (Auto) 2.9 (1.5-5.0) % Baso % (Auto) 0.2 (0.0-3.0) % Gran # 8.67 H (1.4-6.5) Lymph # 1.3 (1.2-3.4) [place] # 0.6 (0.1-0.6) Eos # 0.3 (0.0-0.7) Baso # 0.02 (0.0-2.0) K/mm3 PT (9.9-11.8) Seconds INR (0.93-1.08) pCO2 59 H (35-45) mm/Hg pO2 74.0 L (80-100) mm/Hg HCO3 20.1 L (21-28) mmol/L ABG pH 7.14 L* (7.35-7.45) ABG Total CO2 21.9 L (22-28) mmol.L ABG O2 Saturation 95.4 (95-98) % ABG O2 Content 18.5 (15-23) ML/dl ABG Base Excess -9.6 L (-2.0-3.0) mmol/L ABG Hemoglobin 14.1 (11.7-17.4) g/dL ABG Carboxyhemoglobin 1.5 (0.5-1.5) % POC ABG HHb (Measured) 4.5 (0-5) % ABG Methemoglobin 0.7 (0.0-3.0) % ABG O2 Capacity 19.4 (16-24) mL/dl ABG Potassium (3.6-5.2) mmol/L Hgb O2 Saturation 93.2 L (95.0-98.0) % Sodium (132-148) mmol/L Chloride (98-107) mmol/L Glucose (75-110) mg/dl Lactate (0.7-2.1) mmol/L Mechanical Rate FiO2 100.0 % Tidal Volume PEEP Potassium (3.6-5.0) mmol/L Carbon Dioxide (21-33) mmol/L Anion Gap (10-20) BUN (7-21) mg/dL Creatinine (0.5-1.4) mg/dL Est GFR ( Amer) Est GFR (Non-Af Amer) Random Glucose (70-110) mg/dL Calcium (8.4-10.5) mg/dL Phosphorus (2.5-4.5) mg/dL Magnesium (1.7-2.2) mg/dL Total Bilirubin (0.2-1.3) mg/dL AST (15-59) U/L ALT (7-56) U/L Alkaline Phosphatase (38-133) U/L Total Protein (5.8-8.3) g/dL Albumin (3.0-4.8) g/dL Globulin gm/dL Albumin/Globulin Ratio (1.1-1.8) Procalcitonin 28.63 H (0.19-0.49) NG/ML Arterial Blood Potassium (3.6-5.2) mmol/L U Random Total Protein (22-128) mg/g creat HIV 1&2 Ag/Ab, 4th Gen (Nonreactive) 02/07/17 02/07/17 02/07/17 Range/Units 18:29 06:14 01:01 WBC (4.5-11.0) 10^3/ul RBC (3.5-6.1) 10^6/uL Hgb (14.0-18.0) gm/dL Hct (42.0-52.0) % MCV (80.0-105.0) fL MCH (25.0-35.0) pg MCHC (31.0-37.0) g/dl RDW (11.5-14.5) % Plt Count (120.0-450.0) 10^3/uL MPV (7.0-11.0) fl Gran % (50.0-68.0) % Lymph % (Auto) (22.0-35.0) % [place] % (Auto) (1.0-6.0) % Eos % (Auto) (1.5-5.0) % Baso % (Auto) (0.0-3.0) % Gran # (1.4-6.5) Lymph # (1.2-3.4) [place] # (0.1-0.6) Eos # (0.0-0.7) Baso # (0.0-2.0) K/mm3 PT (9.9-11.8) Seconds INR (0.93-1.08) pCO2 49 H (35-45) mm/Hg pO2 62.0 L (80-100) mm/Hg HCO3 20.5 L (21-28) mmol/L ABG pH 7.23 L (7.35-7.45) ABG Total CO2 22.0 (22-28) mmol.L ABG O2 Saturation 92.0 L (95-98) % ABG O2 Content (15-23) ML/dl ABG Base Excess -7.2 L (-2.0-3.0) mmol/L ABG Hemoglobin (11.7-17.4) g/dL ABG Carboxyhemoglobin (0.5-1.5) % POC ABG HHb (Measured) (0-5) % ABG Methemoglobin (0.0-3.0) % ABG O2 Capacity (16-24) mL/dl ABG Potassium 3.7 (3.6-5.2) mmol/L Hgb O2 Saturation (95.0-98.0) % Sodium 143.0 (132-148) mmol/L Chloride 111.0 H (98-107) mmol/L Glucose 111 H (75-110) mg/dl Lactate 1.0 (0.7-2.1) mmol/L Mechanical Rate 20 FiO2 100.0 % Tidal Volume 400 PEEP 10 Potassium (3.6-5.0) mmol/L Carbon Dioxide (21-33) mmol/L Anion Gap (10-20) BUN (7-21) mg/dL Creatinine (0.5-1.4) mg/dL Est GFR ( Amer) Est GFR (Non-Af Amer) Random Glucose (70-110) mg/dL Calcium (8.4-10.5) mg/dL Phosphorus (2.5-4.5) mg/dL Magnesium (1.7-2.2) mg/dL Total Bilirubin (0.2-1.3) mg/dL AST (15-59) U/L ALT (7-56) U/L Alkaline Phosphatase (38-133) U/L Total Protein (5.8-8.3) g/dL Albumin (3.0-4.8) g/dL Globulin gm/dL Albumin/Globulin Ratio (1.1-1.8) Procalcitonin (0.19-0.49) NG/ML Arterial Blood Potassium 3.7 (3.6-5.2) mmol/L U Random Total Protein 5697 H (22-128) mg/g creat HIV 1&2 Ag/Ab, 4th Gen Nonreactive (Nonreactive) Laboratory Results - last 24 hr 02/07/17 02/07/17 02/07/17 01:01 06:14 18:29 WBC RBC Hgb Hct MCV MCH MCHC RDW Plt Count MPV Gran % Lymph % (Auto) Vent[place] % (Auto) Eos % (Auto) Baso % (Auto) Gran # Lymph # [place] # Eos # Baso # PT INR pCO2 49 H pO2 62.0 L HCO3 20.5 L ABG pH 7.23 L ABG Total CO2 22.0 ABG O2 Saturation 92.0 L ABG O2 Content ABG Base Excess -7.2 L ABG Hemoglobin ABG Carboxyhemoglobin POC ABG HHb (Measured) ABG Methemoglobin ABG O2 Capacity ABG Potassium 3.7 Hgb O2 Saturation Sodium 143.0 Chloride 111.0 H Glucose 111 H Lactate 1.0 Mechanical Rate 20 FiO2 100.0 Tidal Volume 400 PEEP 10 Potassium Carbon Dioxide Anion Gap BUN Creatinine Est GFR ( Amer) Est GFR (Non-Af Amer) Random Glucose Calcium Phosphorus Magnesium Total Bilirubin AST ALT Alkaline Phosphatase Total Protein Albumin Globulin Albumin/Globulin Ratio Procalcitonin Arterial Blood Potassium 3.7 U Random Total Protein 5697 H HIV 1&2 Ag/Ab, 4th Gen Nonreactive 02/08/17 02/08/17 02/08/17 05:45 06:45 06:45 WBC 10.9 D RBC 4.16 Hgb 11.4 L Hct 36.4 L MCV 87.5 MCH 27.4 MCHC 31.3 RDW 16.1 H Plt Count 185 MPV 9.4 Gran % 79.9 H Lymph % (Auto) 11.8 L [place] % (Auto) 5.2 Eos % (Auto) 2.9 Baso % (Auto) 0.2 Gran # 8.67 H Lymph # 1.3 Ventura # 0.6 Eos # 0.3 Baso # 0.02 PT INR pCO2 59 H pO2 74.0 L HCO3 20.1 L ABG pH 7.14 L* ABG Total CO2 21.9 L ABG O2 Saturation 95.4 ABG O2 Content 18.5 ABG Base Excess -9.6 L ABG Hemoglobin 14.1 ABG Carboxyhemoglobin 1.5 POC ABG HHb (Measured) 4.5 ABG Methemoglobin 0.7 ABG O2 Capacity 19.4 ABG Potassium Hgb O2 Saturation 93.2 L Sodium Chloride Glucose Lactate Mechanical Rate FiO2 100.0 Tidal Volume PEEP Potassium Carbon Dioxide Anion Gap BUN Creatinine Est GFR ( Amer) Est GFR (Non-Af Amer) Random Glucose Calcium Phosphorus Magnesium Total Bilirubin AST ALT Alkaline Phosphatase Total Protein Albumin Globulin Albumin/Globulin Ratio Procalcitonin 28.63 H Arterial Blood Potassium U Random Total Protein HIV 1&2 Ag/Ab, 4th Gen 02/08/17 02/08/17 02/08/17 06:45 11:30 12:00 WBC RBC Hgb Hct MCV MCH MCHC RDW Plt Count MPV Gran % Lymph % (Auto) [place] % (Auto) Eos % (Auto) Baso % (Auto) Gran # Lymph # [place] # Eos # Baso # PT 12.3 H INR 1.14 H pCO2 37 pO2 76.0 L HCO3 17.0 L ABG pH 7.27 L ABG Total CO2 18.1 L ABG O2 Saturation 97.3 ABG O2 Content 14.9 L ABG Base Excess -9.2 L ABG Hemoglobin 11.1 L ABG Carboxyhemoglobin 1.3 POC ABG HHb (Measured) 2.6 ABG Methemoglobin 1.1 ABG O2 Capacity 15.3 L ABG Potassium Hgb O2 Saturation 95.0 Sodium 143 Chloride 112 H Glucose Lactate Mechanical Rate FiO2 100.0 Tidal Volume PEEP Potassium 3.7 Carbon Dioxide 22 Anion Gap 13 BUN 55 H Creatinine 7.3 H Est GFR ( Amer) 10 Est GFR (Non-Af Amer) 8 Random Glucose 104 Calcium 7.8 L Phosphorus 7.4 H Magnesium 2.1 Total Bilirubin 0.6 AST 116 H ALT 153 H Alkaline Phosphatase 91 Total Protein 5.8 Albumin 2.9 L Globulin 2.9 Albumin/Globulin Ratio 1.0 L Procalcitonin Arterial Blood Potassium U Random Total Protein HIV 1&2 Ag/Ab, 4th Gen Attending/Attestation - Attestation I have personally seen and examined this patient.: Yes I have fully participated in the care of the patient.: Yes I have reviewed all pertinent clinical information: Yes Notes (Text): 02/08/17 17:33 51 y/o M s/p Cardiac arrest at home. VDRF w/ resp failure CXR shows b/l infiltrates vs Pulmonary vasc congestion increased Rosalio w/ ATN . Urine output low. Lasix 80 mg tried and minimal urine output. ANIMAL TRAINER could be needed if mental status improves to help improve multi organ failure. No regain of mental status. EEg and Cerebral flow pending. Does have the ability to over breath the vent settings and P.S. Poor prognosis. Blood cx positive w/ hx of IV drug abuse with concern for bactermia and also removal of R Groin TLC and new R TLC placed under US. Repeat Blood cx to be sent. ID following along. No seizure like activity Acute respiratory failure with ARDS net protocol. Keep PH>7.3 . cc time 75 min
--- NOTE | 2017-02-08 09:39 | CP.PCM.PN ---
Subjective - Date & Time of Evaluation Date of Evaluation: 02/08/17 Time of Evaluation: 06:00 - Subjective Subjective: poor condition Objective - Vital Signs/Intake and Output Vital Signs (last 24 hours): Temp Pulse Resp BP Pulse Ox 98.1 F 110 H 20 104/55 L 95 02/08/17 09:15 02/08/17 09:15 02/08/17 00:00 02/08/17 09:15 02/08/17 09:15 Intake and Output: 02/08/17 02/08/17 06:59 18:59 Intake Total 2322 Output Total 1550 Balance 772 - Medications Medications: Current Medications Aspirin (Aspirin) 325 mg PO DAILY [facility] Last Admin: 02/07/17 10:24 Dose: 325 mg Heparin Sodium (Porcine) (Heparin) 5,000 units SC Q8 [facility] PRN Reason: Protocol Last Admin: 02/08/17 05:40 Dose: 5,000 units NOREPINEPHRINE BIT/0.9 % NACL (Levophed 4 Mg/ 250 Ml Ns Premixed) 4 mg in 250 mls @ 15 mls/hr IV .[id number] PRN; Protocol; 4 MCG/MIN PRN Reason: TITRATE PER MD ORDER Last Titration: 02/08/17 05:50 Dose: 3 mcg/min, 11.25 mls/hr Sodium Chloride (Sodium Chloride 0.9%) 1,000 mls @ 100 mls/hr IV .Q10H [facility] Last Admin: 02/07/17 20:03 Dose: 100 mls/hr Daptomycin 790 mg/ Sodium (Chloride) 100 mls @ 200 mls/hr IV Q48H [facility] Stop: 02/16/17 19:46 Last Admin: 02/07/17 22:00 Dose: 200 mls/hr Meropenem 500 mg/ Sodium (Chloride) 100 mls @ 100 mls/hr IVPB Q8 [facility] PRN Reason: Protocol Stop: 02/16/17 22:01 Last Admin: 02/08/17 05:04 Dose: 100 mls/hr Lorazepam (Ativan) 1 mg IVP Q2H PRN; Protocol PRN Reason: Seizure activity Last Admin: 02/06/17 22:29 Dose: 1 mg Pantoprazole Sodium (Protonix Inj) 40 mg IVP DAILY [facility] Last Admin: 02/07/17 09:45 Dose: 40 mg - Labs Labs: 02/08/17 06:45 02/08/17 06:45 PT 12.9 Seconds (9.9-11.8) H 02/06/17 14:13 INR 1.19 (0.93-1.08) H 02/06/17 14:13 APTT 35.4 Seconds (23.7-30.8) H 02/06/17 14:13 - Constitutional Appears: Toxic - Head Exam Head Exam: ATRAUMATIC, NORMAL INSPECTION, NORMOCEPHALIC - Eye Exam Eye Exam: EOMI, Normal appearance, PERRL Pupil Exam: NORMAL ACCOMODATION, PERRL - ENT Exam ENT Exam: Mucous Membranes Moist, Normal Exam - Neck Exam Neck Exam: Full ROM, Normal Inspection. absent: Lymphadenopathy - Respiratory Exam Respiratory Exam: Clear to Ausculation Bilateral, NORMAL BREATHING PATTERN - Cardiovascular Exam Cardiovascular Exam: REGULAR RHYTHM, +S1, +S2. absent: Murmur - GI/Abdominal Exam GI & Abdominal Exam: Soft, Normal Bowel Sounds. absent: Tenderness - Rectal Exam Rectal Exam: NORMAL INSPECTION - Exam Exam: Circumcision, NORMAL INSPECTION External exam: NORMAL EXTERNAL EXAM Speculum exam: NORMAL SPECULUM EXAM Bimanual exam: NORMAL BIMANUAL EXAM - Extremities Exam Extremities Exam: Full ROM, Normal Capillary Refill, Normal Inspection. absent : Joint Swelling, Pedal Edema - Back Exam Back Exam: NORMAL INSPECTION - Neurological Exam Neurological Exam: Alert, Awake, CN II-XII Intact, Normal Gait, Oriented x3 - Psychiatric Exam Psychiatric exam: Normal Affect, Normal Mood - Skin Skin Exam: Dry, Intact, Normal Color, Warm Assessment and Plan (1) Cardiac arrest Status: Acute (2) Overdose Status: Acute (3) Renal failure Status: Acute (4) Sepsis Status: Acute (5) Chest pain Status: Acute (6) Dyspnea on exertion Status: Acute (7) Pleural effusion on right Status: Acute (8) Septic shock due to Gram positive bacteria Status: Acute - Assessment and Plan (Free Text) Plan: on dapto /merr awaiting work up results
[2017-02-08] MEDS: NOREPINEPHRINE BIT/0.9 % NACL 4 MG/250 ML BAG IV PRN (10:00)
--- NOTE | 2017-02-08 10:00 | RAD ---
HISTORY: de-sat COMPARISON: 02/07/2017 FINDINGS: LUNGS: No active pulmonary disease. PLEURA: No significant pleural effusion identified, no pneumothorax apparent. CARDIOVASCULAR: Mild cardiomegaly OSSEOUS STRUCTURES: No significant abnormalities. VISUALIZED UPPER ABDOMEN: Normal. OTHER FINDINGS: None. IMPRESSION: The endotracheal and nasogastric tubes remain in satisfactory position. No acute changes
--- NOTE | 2017-02-08 10:20 | RAD ---
HISTORY: intubated, pna COMPARISON: 02/07/2017 FINDINGS: LUNGS: No active pulmonary disease. PLEURA: No significant pleural effusion identified, no pneumothorax apparent. CARDIOVASCULAR: There is moderate to severe vascular congestion which has increased. OSSEOUS STRUCTURES: No significant abnormalities. VISUALIZED UPPER ABDOMEN: Normal. OTHER FINDINGS: The central tubes are unchanged in position IMPRESSION: There is moderate to severe vascular congestion which has increased.
[2017-02-08 11:50] LABS: INR 1.14 (0.93-1.08); PROTHROMBIN TIME 12.3 Seconds (9.9-11.8)
[2017-02-08 12:15] LABS: ARTERIAL BLOOD GAS HEMOGLOBIN 11.1 g/dL (11.7-17.4); ARTERIAL BLOOD GAS O2 CAPACITY 15.3 mL/dl (16-24); ARTERIAL BLOOD GAS O2 CONTENT 14.9 ML/dl (15-23); ARTERIAL BLOOD GAS O2 SAT 97.3 % (95-98); ARTERIAL BLOOD GAS PCO2 37 mm/Hg (35-45); ARTERIAL BLOOD GAS PH 7.27 (7.35-7.45); ARTERIAL BLOOD GAS TCO2 18.1 mmol.L (22-28)
--- NOTE | 2017-02-08 12:47 | CP.PCM.PN ---
Subjective - Date & Time of Evaluation Date of Evaluation: 02/08/17 Time of Evaluation: 09:00 - Subjective Subjective: NEURO PROGRESS NOTE: 02/08/17 CHIEF COMPLAINT: STATUS POST CARDIAC ARREST, AMS SUBJECTIVE: The patient is a 51 yo man with a long-standing history of opiate dependence and non-obstructive CAD, Hep C who was admitted to the ICU s/p cardiac arrest x4 for management of acute hypoxic respiratory failure, opiate overdose and likely anoxic brain injury therefore consulted. CT head showed features consistent with anoxic brain injury and no differentiation between hurd and white matter. Currently no spontaneous movements are seen of the extremities, no gag, corneal, doll's eye reflex. Does not withdraw to noxious stimulus. Case discussed with at bedside. EEG SHOWS LIANA SUPPRESSION CONSISTENT WITH ANOXIC SEVERINO INJURY. NEURO EXAM UNCHANGED. ROS: 14 POINT REVIEW OF SYMPTOMS IS DIFFICULT TO OBTAIN ALLERGIES: SHELLFISH SOCIAL HISTORY: SMOKER AND HEROIN USER FAMILY: NON CONTRIBUTORY. MEDICATIONS: REVIEWED BY NURSE'S RECONCILIATION SHEET. PAST MEDICAL HISTORY: OPIATE DEPENDANCE, HEROIN USER, HEP C, CAD PHYSICAL EXAM: VITAL SIGNS: REVIEWED BY THE CHART GENERAL EXAM: PATIENT SEEN IN BED, INTUBATED. HEENT: NO PERRLA, OR EOMI, AND NECK SUPPLE, NO JVD, NO ADENOPATHY CVS: S1, S2, RRR, NO MURMURS NOTED LUNGS: DECREASED BREATH SOUNDS B/L ABDOMEN: SOFT AND NONTENDER EXTREMITIES: NO CLUBBING OR CYANOSIS. PP 2+ B/L NEURO: PT IS IN A COMATOSE STATE, NO GAG, NO CORNEAL REFLEX, NO PUPILLARY REFLEX. PUPILS ARE FIXED AND DILATED. NO DOLL'S EYE REFLEX, NO SPONTANEOUS MOVEMENT OF THE EXTREMITIES. PT DOES NOT WITHDRAW TO NOXIOUS STIMULUS. TOES ARE EQUIVOCAL. COORDINATION AND GAIT DEFERRED FOR NOW DEEP TENDON REFLEXES: 2+ THROUGHOUT. LABS: REVIEWED BY THE CHART. ASSESSMENT AND PLAN: the patient is a 51 yo man with a long-standing history of opiate dependence and non-obstructive CAD, Hep C who was admitted to the ICU s/p cardiac arrest x4 for management of acute hypoxic respiratory failure, opiate overdose and likely anoxic brain injury therefore consulted. CT head showed features consistent with anoxic brain injury and no differentiation between hurd and white matter. Currently no spontaneous movements are seen of the extremities, no gag, corneal, doll's eye reflex. Does not withdraw to noxious stimulus. Case discussed with at bedside. EEG SHOWS LIANA SUPPRESSION CONSISTENT WITH ANOXIC SEVERINO INJURY. NEURO EXAM UNCHANGED. IMPRESSION: ALTERED MENTAL STATUS IS LIKELY MORE OF ANOXIC BRAIN INJURY 1. KEEP SYSTOLIC BP ABOVE 120 MM HG TO PERFUSE 2. MONITOR ELECTROLYTES AND CORRECT ACCORDINGLY. HYDRATE. 3. NUCLEAR BLOOD FLOW SCAN 4. PROGNOSIS IS POOR FOR MEANINGFUL RECOVERY. THANK YOU. Azalea SANTOS MD Objective - Vital Signs/Intake and Output Vital Signs (last 24 hours): Temp Pulse Resp BP Pulse Ox 98.1 F 110 H 20 102/58 L 95 02/08/17 09:15 02/08/17 09:15 02/08/17 00:00 02/08/17 09:49 02/08/17 09:15 Intake and Output: 02/08/17 02/08/17 06:59 18:59 Intake Total 2322 Output Total 1550 Balance 772 - Medications Medications: Current Medications Aspirin (Aspirin) 325 mg PO DAILY [facility] Last Admin: 02/08/17 09:50 Dose: 325 mg Heparin Sodium (Porcine) (Heparin) 5,000 units SC Q8 [facility] PRN Reason: Protocol Last Admin: 02/08/17 05:40 Dose: 5,000 units NOREPINEPHRINE BIT/0.9 % NACL (Levophed 4 Mg/ 250 Ml Ns Premixed) 4 mg in 250 mls @ 15 mls/hr IV .[id number] PRN; Protocol; 4 MCG/MIN PRN Reason: TITRATE PER MD ORDER Last Titration: 02/08/17 05:50 Dose: 3 mcg/min, 11.25 mls/hr Sodium Chloride (Sodium Chloride 0.9%) 1,000 mls @ 100 mls/hr IV .Q10H [facility] Last Admin: 02/07/17 20:03 Dose: 100 mls/hr Daptomycin 790 mg/ Sodium (Chloride) 100 mls @ 200 mls/hr IV Q48H [facility] Stop: 02/16/17 19:46 Last Admin: 02/07/17 22:00 Dose: 200 mls/hr Meropenem 500 mg/ Sodium (Chloride) 100 mls @ 100 mls/hr IVPB Q8 [facility] PRN Reason: Protocol Stop: 02/16/17 22:01 Last Admin: 02/08/17 05:04 Dose: 100 mls/hr Lorazepam (Ativan) 1 mg IVP Q2H PRN; Protocol PRN Reason: Seizure activity Last Admin: 02/06/17 22:29 Dose: 1 mg Pantoprazole Sodium (Protonix Inj) 40 mg IVP DAILY [facility] Last Admin: 02/08/17 09:49 Dose: 40 mg - Labs Labs: 02/08/17 06:45 02/08/17 06:45 PT 12.3 Seconds (9.9-11.8) H 02/08/17 11:30 INR 1.14 (0.93-1.08) H 02/08/17 11:30 APTT 35.4 Seconds (23.7-30.8) H 02/06/17 14:13
--- NOTE | 2017-02-08 15:35 | NM ---
PROCEDURE: Nuclear medicine cerebral blood flow study HISTORY: Anoxic brain injury COMPARISON: CT dated 02/06/2017 TECHNIQUE: 23.0 mCi of technetium 99 M were injected. Frontal images were obtained every 2 seconds. FINDINGS: The study shows no evidence of intra cerebral blood flow. The findings are consistent with anoxic brain injury. There is some uptake seen in the facial structures and thyroid. IMPRESSION: No intra cerebral blood flow.
[2017-02-08] MEDS: Sodium Chloride 0.9% 1,000 ML IV SCH ×2 (18:03→21:06)
--- NOTE | 2017-02-08 18:11 | RAD ---
HISTORY: RIJ central line COMPARISON: Multiple serial examinations preceding the most recent study: February 08, 2017. At 05:22 FINDINGS: LUNGS: BMD changes compared to the prior study PLEURA: No significant pleural effusion identified, no pneumothorax apparent. CARDIOVASCULAR: No radiographic findings to suggest acute or significant cardiovascular disease. IJ catheter inserted via right sided approach. The tip is in the SVC. No pneumothorax OSSEOUS STRUCTURES: No significant abnormalities. VISUALIZED UPPER ABDOMEN: Normal. OTHER FINDINGS: Stable position of additional support apparatus including endotracheal tube and nasogastric tube. IMPRESSION: No acute interval changes. No adverse findings following right IJ catheter placement.
--- NOTE | 2017-02-08 18:53 | PCM.PROC ---
Procedures Attestation:: I certify that I have explained the specified Operation(s) or Procedure(s), risks, benefits and reasonable alternatives to the Patient and/or other person responsible. The opportunity was given to ask questions and all questions answered - Central Line Placement Right Internal Jugular Aseptic technique was employed throughout the procedure: Hand Hygiene done prior to procedure, Full sterile barriers (mask, hair cover, sterile gown, sterile gloves), Full body sterile drape, Chloraprep Antiseptic: 30 second prep for IJ or SC sites Pt. Placed on Pulse Ox Monitor: Yes Central Line Prep: Chlorhexidine-Alcohol Combination Ultrasound Used for Placement: Yes Central Line Lumen Inserted: triple Central Line Length: 16 cm Post Procedure: Sutured in Place Secured by: Suture Post procedure dressing: Chlorhexidine disc (Biopatch) Post Procedure X-Ray: Yes Patient Tolerated Procedure: Well Immediate Complications: None
--- NOTE | 2017-02-08 20:15 | CP.PCM.PN ---
Subjective - Date & Time of Evaluation Date of Evaluation: 02/08/17 Time of Evaluation: 08:30 - Subjective Subjective: Subjective: No clinical change in patient. Remains intubate and sedated. Brain scan consistent with anoxic brain injury. Objective: VS: T 98, P 82, BP 129/70, RR 16 Gen: intubated, sedated HEENT: ETT in place, pupils nonreactive Neck: no JVD Lungs: coarse transmitted vent sounds CV: RRR, normal S1, S2 Abd: obese, NABS, soft Ext: no edema Neuro: unresponsive, no withdrawl to noxious stimuli Assessment: 51 yo man with chronic opiate dependence and HCV who was admitted to ICU s/p cardiac arrest x 4 s/p intubation in the field secondary to opiate overdose who remains intubated with acute hypoxic respiratory failure and anoxic brain injury Plan: 1. Anoxic brain injury. Input from Dr. Nieves appreciated. c/w care as per neuro. Input from Jill Real appreciated and will need to address goals of care and grim prognosis with family. 2. Acute hypoxic respiratory failure. c/w mechanical ventilation as per veneer drier. c/w HOB > 30 degrees and ventilatory bundle. 3. Sepsis secondary to aspiration pneumonia. Input from Dr. Loyola appreciated. c/w current antimicrobials. 4. ROSALIO likely secondary to ATN. c/w IVF hydration and vasopressors as needed 5. NSTEMI. continue with care as per Dr. Ramírez. Code Status: Full Code Objective - Vital Signs/Intake and Output Vital Signs (last 24 hours): Temp Pulse Resp BP Pulse Ox 98.4 F 110 H 28 H 106/62 97 02/08/17 20:00 02/08/17 20:00 02/08/17 20:00 02/08/17 20:00 02/08/17 20:00 Intake and Output: 02/08/17 02/09/17 18:59 06:59 Intake Total 1530 Output Total 1025 Balance 505 - Medications Medications: Current Medications Aspirin (Aspirin) 325 mg PO DAILY [facility] Last Admin: 02/08/17 09:50 Dose: 325 mg Heparin Sodium (Porcine) (Heparin) 5,000 units SC Q8 [facility] PRN Reason: Protocol Last Admin: 02/08/17 14:00 Dose: 5,000 units NOREPINEPHRINE BIT/0.9 % NACL (Levophed 4 Mg/ 250 Ml Ns Premixed) 4 mg in 250 mls @ 15 mls/hr IV .[id number] PRN; Protocol; 4 MCG/MIN PRN Reason: TITRATE PER MD ORDER Last Admin: 02/08/17 10:00 Dose: 8 mcg/min, 30 mls/hr Sodium Chloride (Sodium Chloride 0.9%) 1,000 mls @ 100 mls/hr IV .Q10H [facility] Last Admin: 02/08/17 18:03 Dose: Not Given Daptomycin 790 mg/ Sodium (Chloride) 100 mls @ 200 mls/hr IV Q48H [facility] Stop: 02/16/17 19:46 Last Admin: 02/07/17 22:00 Dose: 200 mls/hr Meropenem 500 mg/ Sodium (Chloride) 100 mls @ 100 mls/hr IVPB Q8 [facility] PRN Reason: Protocol Stop: 02/16/17 22:01 Last Admin: 02/08/17 13:53 Dose: 100 mls/hr Lorazepam (Ativan) 1 mg IVP Q2H PRN; Protocol PRN Reason: Seizure activity Last Admin: 02/06/17 22:29 Dose: 1 mg Pantoprazole Sodium (Protonix Inj) 40 mg IVP DAILY [facility] Last Admin: 02/08/17 09:49 Dose: 40 mg - Labs Labs: 02/08/17 06:45 02/08/17 06:45 PT 12.3 Seconds (9.9-11.8) H 02/08/17 11:30 INR 1.14 (0.93-1.08) H 02/08/17 11:30 APTT 35.4 Seconds (23.7-30.8) H 02/06/17 14:13
[2017-02-09] MEDS: Meropenem 500 MG in Sodium Chloride 0.9% 100 ML IVPB SCH (05:30)
[2017-02-09 06:13] LABS: ARTERIAL BLOOD GAS HCO3 17.9 mmol/L (21-28); ARTERIAL BLOOD GAS HEMOGLOBIN 10.6 g/dL (11.7-17.4); ARTERIAL BLOOD GAS O2 CAPACITY 14.7 mL/dl (16-24); ARTERIAL BLOOD GAS O2 CONTENT 14.6 ML/dl (15-23); ARTERIAL BLOOD GAS O2 SAT 99.3 % (95-98); ARTERIAL BLOOD GAS PCO2 39 mm/Hg (35-45); ARTERIAL BLOOD GAS PH 7.27 (7.35-7.45); ARTERIAL BLOOD GAS TCO2 19.1 mmol.L (22-28)
[2017-02-09 07:39] LABS: INR 1.18 (0.93-1.08); PARTIAL THROMBOPLASTIN TIME 31.5 Seconds (23.7-30.8); PROTHROMBIN TIME 12.7 Seconds (9.9-11.8)
[2017-02-09 07:40] LABS: ALB/GLOB RATIO 0.9 (1.1-1.8); ALBUMIN 2.6 g/dL (3.0-4.8); CALCIUM 8.4 mg/dL (8.4-10.5); MAGNESIUM 1.9 mg/dL (1.7-2.2)
[2017-02-09 08:15] LABS: BASO # 0.02 K/mm3 (0.0-2.0); BASO % 0.1 % (0.0-3.0); EOS # 0.4 (0.0-0.7); EOS % 2.8 % (1.5-5.0); GRAN # 11.33 (1.4-6.5); GRAN % 82.9 % (50.0-68.0); HEMOGLOBIN 10.1 gm/dL (14.0-18.0); LYMPH # 0.9 (1.2-3.4); LYMPH % 6.8 % (22.0-35.0); MEAN CELL VOLUME 86.3 fL (80.0-105.0); MEAN CORPUSCULAR HEMOGLOBIN 27.6 pg (25.0-35.0); MEAN PLATELET VOLUME 10.5 fl (7.0-11.0); MONO % 7.4 % (1.0-6.0); PLATELET COUNT 189 10^3/uL (120.0-450.0); RBC 3.66 10^6/uL (3.5-6.1); RED CELL DISTRIBUTION WIDTH 16.2 % (11.5-14.5); WHITE BLOOD COUNT 13.7 10^3/ul (4.5-11.0)
--- NOTE | 2017-02-09 08:49 | CP.CCUPN ---
<SilviaIrisLidia - Last Filed: 02/09/17 21:21> CCU Subjective - Physician Review Subjective (Free Text): 02/07/17 10:29 Pt breath on his own at 12. U/O overnight 700/12 hrs. by bedside 02/08/17 13:58 by bedside. Neuro status unchanged Still require 100 FiO2 appreciated hospital [facility] visit 02/09/17 08:47 No acute event overhight family meeting tomorrow 11am CCU Objective - Vital Signs / Intake & Output Vital Signs (Last 4 hours): Vital Signs Temp Pulse Resp BP Pulse Ox 02/09/17 08:20 97.9 F 104 H 96 02/09/17 08:10 98.1 F 104 H 95 02/09/17 08:00 98.1 F 104 H 117/66 95 02/09/17 07:50 97.9 F 105 H 95 02/09/17 07:40 97.9 F 105 H 95 02/09/17 07:30 97.9 F 106 H 123/67 92 L 02/09/17 07:20 97.9 F 105 H 95 02/09/17 07:10 98.1 F 105 H 95 02/09/17 07:00 98.1 F 105 H 122/78 98 02/09/17 06:50 97.7 F 105 H 99 02/09/17 06:40 97.7 F 105 H 99 02/09/17 06:30 97.7 F 105 H 115/69 99 02/09/17 06:20 97.7 F 105 H 99 02/09/17 06:10 97.9 F 105 H 99 02/09/17 06:00 97.9 F 105 H 115/70 99 02/09/17 05:50 97.7 F 105 H 99 02/09/17 05:40 97.7 F 105 H 99 02/09/17 05:30 97.7 F 105 H 28 H 118/66 99 02/09/17 05:20 97.3 F L 106 H 28 H 97 02/09/17 05:13 98.1 F 107 H 96 02/09/17 05:10 98.1 F 107 H 29 H 97 02/09/17 05:03 98.1 F 108 H 98 02/09/17 05:00 98.1 F 107 H 28 H 127/78 99 07/01/17 04:50 98.1 F 106 H 28 H 97 Intake and Output (Last 8hrs): Intake & Output 02/08/17 02/09/17 02/09/17 22:59 06:59 14:59 Intake Total 1500 1560 Output Total 1025 850 Balance 475 710 Intake: IV 1500 1560 Right Femoral 1500 Right Internal Jugular 1560 Oral 0 0 Tube Feeding 0 Output: Gastric Amount 400 350 Nares 400 350 Urine 400 150 Urethral (Garcia) 400 150 Stool 225 350 Other: Voiding Method Indwelling Catheter - Physical Exam Head: Positive for: Atraumatic, Normocephalic Pupils: Positive for: Non-Reactive, Other (4mm) Conjunctiva: Negative for: Injected, Icteric Mouth: Positive for: Moist Mucous Membranes Respiratory/Chest: Positive for: Rales. Negative for: Wheezes, Rhonchi Cardiovascular: Positive for: Regular Rate and Rhythm, Normal S1, S2 Abdomen: Positive for: Distention, Normal Bowel Sounds, Other (rectal tube in place - dark watery drainage; NG tube on LIS, 650 bilous gastric content) Rectal: Positive for: Occult Blood, Melena Upper Extremity: Positive for: Edema Lower Extremity: Positive for: Edema. Negative for: NORMAL PULSES (diminished DP +1 b/l) Neurological: Positive for: Other (no doll's eye, no gag). Negative for: GCS= 15 (3) Skin: Positive for: Other (cool, dry) - Medications Active Medications: Active Medications Generic Name Dose Route Start Last Admin Trade Name Freq PRN Reason Stop Dose Admin Aspirin 325 mg 02/07/17 10:00 02/08/17 09:50 Aspirin PO 325 mg DAILY CHUCHO Administration Heparin Sodium (Porcine) 5,000 units 02/06/17 22:00 02/09/17 05:32 Heparin SC 5,000 units Q8 CHUCHO Administration Protocol NOREPINEPHRINE BIT/0.9 % NACL 4 mg in 250 mls @ 15 mls/hr 02/06/17 15:09 10:00 Levophed 4 Mg/ 250 Ml Ns Premixed IV 8 mcg/min .[id number] PRN 30 mls/hr TITRATE PER MD ORDER Administration Protocol 4 MCG/MIN Sodium Chloride 1,000 mls @ 100 mls/hr 02/06/17 19:00 02/08/17 21:06 Sodium Chloride 0.9% IV 100 mls/hr .Q10H CHUCHO Administration Daptomycin 790 mg/ Sodium 100 mls @ 200 mls/hr 02/07/17 19:45 02/07/17 22:00 Chloride IV 02/16/17 19:46 200 mls/hr Q48H CHUCHO Administration Meropenem 500 mg/ Sodium 100 mls @ 100 mls/hr 02/07/17 22:00 02/09/17 05:30 Chloride IVPB 02/16/17 22:01 100 mls/hr Q8 CHUCHO Administration Protocol Lorazepam 1 mg 02/06/17 18:19 02/06/17 22:29 Ativan IVP 1 mg Q2H PRN Administration Seizure activity Protocol Pantoprazole Sodium 40 mg 02/07/17 10:00 02/08/17 09:49 Protonix Inj IVP 40 mg DAILY CHUCHO Administration - Patient Studies Lab Studies: Microbiology Studies 02/07/17 23:00 Blood Culture - Preliminary Blood-Venous NO GROWTH AFTER 24 HOURS 02/07/17 22:30 Blood Culture - Preliminary Blood-Venous NO GROWTH AFTER 24 HOURS 02/06/17 16:00 Ova and Parasite Concentrate Exam - Final Stool C. difficile Antigen & Toxin A,B (M - Final Lab Studies 02/09/17 02/09/17 02/09/17 Range/Units 07:10 07:10 07:10 WBC 13.7 H D (4.5-11.0) 10^3/ul RBC 3.66 (3.5-6.1) 10^6/uL Hgb 10.1 L (14.0-18.0) gm/dL Hct 31.6 L (42.0-52.0) % MCV 86.3 (80.0-105.0) fL MCH 27.6 (25.0-35.0) pg MCHC 32.0 (31.0-37.0) g/dl RDW 16.2 H (11.5-14.5) % Plt Count 189 (120.0-450.0) 10^3/uL MPV 10.5 (7.0-11.0) fl Gran % 82.9 H (50.0-68.0) % Lymph % (Auto) 6.8 L (22.0-35.0) % [place] % (Auto) 7.4 H (1.0-6.0) % Eos % (Auto) 2.8 (1.5-5.0) % Baso % (Auto) 0.1 (0.0-3.0) % Gran # 11.33 H (1.4-6.5) Lymph # 0.9 L (1.2-3.4) [place] # 1.0 H (0.1-0.6) Eos # 0.4 (0.0-0.7) Baso # 0.02 (0.0-2.0) K/mm3 PT 12.7 H (9.9-11.8) Seconds INR 1.18 H (0.93-1.08) APTT 31.5 H (23.7-30.8) Seconds pCO2 (35-45) mm/Hg pO2 (80-100) mm/Hg HCO3 (21-28) mmol/L ABG pH (7.35-7.45) ABG Total CO2 (22-28) mmol.L ABG O2 Saturation (95-98) % ABG O2 Content (15-23) ML/dl ABG Base Excess (-2.0-3.0) mmol/L ABG Hemoglobin (11.7-17.4) g/dL ABG Carboxyhemoglobin (0.5-1.5) % POC ABG HHb (Measured) (0-5) % ABG Methemoglobin (0.0-3.0) % ABG O2 Capacity (16-24) mL/dl Hgb O2 Saturation (95.0-98.0) % FiO2 % Sodium 144 (132-148) mmol/L Potassium 3.4 L (3.6-5.0) mmol/L Chloride 114 H (95-110) mmol/L Carbon Dioxide 18 L (21-33) mmol/L Anion Gap 15 (10-20) BUN 59 H (7-21) mg/dL Creatinine 9.3 H* (0.5-1.4) mg/dL Est GFR ( Amer) 7 Est GFR (Non-Af Amer) 6 Random Glucose 116 H (70-110) mg/dL Calcium 8.4 (8.4-10.5) mg/dL Phosphorus 5.7 H (2.5-4.5) mg/dL Magnesium 1.9 (1.7-2.2) mg/dL Total Bilirubin 0.7 (0.2-1.3) mg/dL AST 70 H (15-59) U/L ALT 98 H (7-56) U/L Alkaline Phosphatase 105 (38-133) U/L Total Protein 5.4 L (5.8-8.3) g/dL Albumin 2.6 L (3.0-4.8) g/dL Globulin 2.8 gm/dL Albumin/Globulin Ratio 0.9 L (1.1-1.8) Procalcitonin (0.19-0.49) NG/ML 02/09/17 02/08/17 02/08/17 Range/Units 04:00 12:00 11:30 WBC (4.5-11.0) 10^3/ul RBC (3.5-6.1) 10^6/uL Hgb (14.0-18.0) gm/dL Hct (42.0-52.0) % MCV (80.0-105.0) fL MCH (25.0-35.0) pg MCHC (31.0-37.0) g/dl RDW (11.5-14.5) % Plt Count (120.0-450.0) 10^3/uL MPV (7.0-11.0) fl Gran % (50.0-68.0) % Lymph % (Auto) (22.0-35.0) % [place] % (Auto) (1.0-6.0) % Eos % (Auto) (1.5-5.0) % Baso % (Auto) (0.0-3.0) % Gran # (1.4-6.5) Lymph # (1.2-3.4) [place] # (0.1-0.6) Eos # (0.0-0.7) Baso # (0.0-2.0) K/mm3 PT 12.3 H (9.9-11.8) Seconds INR 1.14 H (0.93-1.08) APTT (23.7-30.8) Seconds pCO2 39 37 (35-45) mm/Hg pO2 108.0 H 76.0 L (80-100) mm/Hg HCO3 17.9 L 17.0 L (21-28) mmol/L ABG pH 7.27 L 7.27 L (7.35-7.45) ABG Total CO2 19.1 L 18.1 L (22-28) mmol.L ABG O2 Saturation 99.3 H 97.3 (95-98) % ABG O2 Content 14.6 L 14.9 L (15-23) ML/dl ABG Base Excess -8.4 L -9.2 L (-2.0-3.0) mmol/L ABG Hemoglobin 10.6 L 11.1 L (11.7-17.4) g/dL ABG Carboxyhemoglobin 1.3 1.3 (0.5-1.5) % POC ABG HHb (Measured) 0.7 2.6 (0-5) % ABG Methemoglobin 1.2 1.1 (0.0-3.0) % ABG O2 Capacity 14.7 L 15.3 L (16-24) mL/dl Hgb O2 Saturation 96.8 95.0 (95.0-98.0) % FiO2 100.0 100.0 % Sodium (132-148) mmol/L Potassium (3.6-5.0) mmol/L Chloride (95-110) mmol/L Carbon Dioxide (21-33) mmol/L Anion Gap (10-20) BUN (7-21) mg/dL Creatinine (0.5-1.4) mg/dL Est GFR ( Amer) Est GFR (Non-Af Amer) Random Glucose (70-110) mg/dL Calcium (8.4-10.5) mg/dL Phosphorus (2.5-4.5) mg/dL Magnesium (1.7-2.2) mg/dL Total Bilirubin (0.2-1.3) mg/dL AST (15-59) U/L ALT (7-56) U/L Alkaline Phosphatase (38-133) U/L Total Protein (5.8-8.3) g/dL Albumin (3.0-4.8) g/dL Globulin gm/dL Albumin/Globulin Ratio (1.1-1.8) Procalcitonin (0.19-0.49) NG/ML 06/30/17 Range/Units 06:45 WBC (4.5-11.0) 10^3/ul RBC (3.5-6.1) 10^6/uL Hgb (14.0-18.0) gm/dL Hct (42.0-52.0) % MCV (80.0-105.0) fL MCH (25.0-35.0) pg MCHC (31.0-37.0) g/dl RDW (11.5-14.5) % Plt Count (120.0-450.0) 10^3/uL MPV (7.0-11.0) fl Gran % (50.0-68.0) % Lymph % (Auto) (22.0-35.0) % [place] % (Auto) (1.0-6.0) % Eos % (Auto) (1.5-5.0) % Baso % (Auto) (0.0-3.0) % Gran # (1.4-6.5) Lymph # (1.2-3.4) [place] # (0.1-0.6) Eos # (0.0-0.7) Baso # (0.0-2.0) K/mm3 PT (9.9-11.8) Seconds INR (0.93-1.08) APTT (23.7-30.8) Seconds pCO2 (35-45) mm/Hg pO2 (80-100) mm/Hg HCO3 (21-28) mmol/L ABG pH (7.35-7.45) ABG Total CO2 (22-28) mmol.L ABG O2 Saturation (95-98) % ABG O2 Content (15-23) ML/dl ABG Base Excess (-2.0-3.0) mmol/L ABG Hemoglobin (11.7-17.4) g/dL ABG Carboxyhemoglobin (0.5-1.5) % POC ABG HHb (Measured) (0-5) % ABG Methemoglobin (0.0-3.0) % ABG O2 Capacity (16-24) mL/dl Hgb O2 Saturation (95.0-98.0) % FiO2 % Sodium (132-148) mmol/L Potassium (3.6-5.0) mmol/L Chloride (95-110) mmol/L Carbon Dioxide (21-33) mmol/L Anion Gap (10-20) BUN (7-21) mg/dL Creatinine (0.5-1.4) mg/dL Est GFR ( Amer) Est GFR (Non-Af Amer) Random Glucose (70-110) mg/dL Calcium (8.4-10.5) mg/dL Phosphorus (2.5-4.5) mg/dL Magnesium (1.7-2.2) mg/dL Total Bilirubin (0.2-1.3) mg/dL AST (15-59) U/L ALT (7-56) U/L Alkaline Phosphatase (38-133) U/L Total Protein (5.8-8.3) g/dL Albumin (3.0-4.8) g/dL Globulin gm/dL Albumin/Globulin Ratio (1.1-1.8) Procalcitonin 28.63 H (0.19-0.49) NG/ML Laboratory Results - last 24 hr 02/08/17 02/08/17 02/08/17 06:45 11:30 12:00 WBC RBC Hgb Hct MCV MCH MCHC RDW Plt Count MPV Gran % Lymph % (Auto) [place] % (Auto) Eos % (Auto) Baso % (Auto) Gran # Lymph # [place] # Eos # Baso # PT 12.3 H INR 1.14 H APTT pCO2 37 pO2 76.0 L HCO3 17.0 L ABG pH 7.27 L ABG Total CO2 18.1 L ABG O2 Saturation 97.3 ABG O2 Content 14.9 L ABG Base Excess -9.2 L ABG Hemoglobin 11.1 L ABG Carboxyhemoglobin 1.3 POC ABG HHb (Measured) 2.6 ABG Methemoglobin 1.1 ABG O2 Capacity 15.3 L Hgb O2 Saturation 95.0 FiO2 100.0 Sodium Potassium Chloride Carbon Dioxide Anion Gap BUN Creatinine Est GFR ( Amer) Est GFR (Non-Af Amer) Random Glucose Calcium Phosphorus Magnesium Total Bilirubin AST ALT Alkaline Phosphatase Total Protein Albumin Globulin Albumin/Globulin Ratio Procalcitonin 28.63 H 02/09/17 02/09/17 02/09/17 04:00 07:10 07:10 WBC 13.7 H D RBC 3.66 Hgb 10.1 L Hct 31.6 L MCV 86.3 MCH 27.6 MCHC 32.0 RDW 16.2 H Plt Count 189 MPV 10.5 Gran % 82.9 H Lymph % (Auto) 6.8 L [place] % (Auto) 7.4 H Eos % (Auto) 2.8 Baso % (Auto) 0.1 Gran # 11.33 H Lymph # 0.9 L [place] # 1.0 H Eos # 0.4 Baso # 0.02 PT INR APTT pCO2 39 pO2 108.0 H HCO3 17.9 L ABG pH 7.27 L ABG Total CO2 19.1 L ABG O2 Saturation 99.3 H ABG O2 Content 14.6 L ABG Base Excess -8.4 L ABG Hemoglobin 10.6 L ABG Carboxyhemoglobin 1.3 POC ABG HHb (Measured) 0.7 ABG Methemoglobin 1.2 ABG O2 Capacity 14.7 L Hgb O2 Saturation 96.8 FiO2 100.0 Sodium 144 Potassium 3.4 L Chloride 114 H Carbon Dioxide 18 L Anion Gap 15 BUN 59 H Creatinine 9.3 H* Est GFR ( Amer) 7 Est GFR (Non-Af Amer) 6 Random Glucose 116 H Calcium 8.4 Phosphorus 5.7 H Magnesium 1.9 Total Bilirubin 0.7 AST 70 H ALT 98 H Alkaline Phosphatase 105 Total Protein 5.4 L Albumin 2.6 L Globulin 2.8 Albumin/Globulin Ratio 0.9 L Procalcitonin 02/09/17 07:10 WBC RBC Hgb Hct MCV MCH MCHC RDW Plt Count MPV Gran % Lymph % (Auto) [place] % (Auto) Eos % (Auto) Baso % (Auto) Gran # Lymph # [place] # Eos # Baso # PT 12.7 H INR 1.18 H APTT 31.5 H pCO2 pO2 HCO3 ABG pH ABG Total CO2 ABG O2 Saturation ABG O2 Content ABG Base Excess ABG Hemoglobin ABG Carboxyhemoglobin POC ABG HHb (Measured) ABG Methemoglobin ABG O2 Capacity Hgb O2 Saturation FiO2 Sodium Potassium Chloride Carbon Dioxide Anion Gap BUN Creatinine Est GFR ( Amer) Est GFR (Non-Af Amer) Random Glucose Calcium Phosphorus Magnesium Total Bilirubin AST ALT Alkaline Phosphatase Total Protein Albumin Globulin Albumin/Globulin Ratio Procalcitonin Fingerstick Blood Sugar Results: 203 Assessment/Plan - Assessment and Plan (Free Text) Plan: 51 M with Hx heroine abuse, Hx non-obstructive CAD, s/p asystole arrest suspicious of heroine overdose, Pt coded 4 times. Today is 72 hours s/p cardiopulm arrest. Pt has respiratory failure requiring intubation. Pt has distributive shock, sepsis with MODS from gram (+) bacteremia - diffuse anoxic brain injury, NSTEMI, hypotension requiring levophed, shock liver, ROSALIO due to ATN/hypotension, gastroparesis, profuse diarrhea. pt is able to breath on his own @ 18 breath/min. Cerebral purfusion scan shows no flow. He is not brain . No seizure like activity Plan: family to determine whether terminally extubate or trach/peg. will start tube feed today. nephro consult Neuro Intubated; Not on sedation Neuro check q1 seizure/Aspiration precaution Watch increase ICP, brain edema Pulm Hypoxic hypercapic respiratory failure Acute respiratory failure with ARDS net protocol. Keep PH>7.3 Volume control 60%/Peep 10/RR 28/TV400 failed SBT CXR - b/l LL infiltrate NS@100 Duoneb as needed Maintain SaO2 above 90 protective lung vent strategy, avoid fluid overload HOB>35, daily weaning protocol Card NSTEMI, Inferior TWI. Heparin SC q8. No plan to cath Echo done on NE, may lack of severe LV systolic dysfunction Levophed taper from 8 to 4 today GI Gastroparesis, suction ~220 in AM shift today, bilous content start enteral nutrition rectal tube, decompress q2days Protonix IV daily /nephro ROSALIO workup: Fena 30 consistent with ATN due to shock oliguric Endo a1c 6.5 tsh 0.5 ISSS q8, accucheck q8 Heme Transfuse if Hb < 10 Infectious On dapto, merrem Gram (+) bacteremia x 2 bottles, adding dapto, redraw blood culture x 2 b/l LL infiltrate (+) hep c Lactate trending down Maintain nomothernia below 98.7 (93-95F permissiable) If fever, cooling blanker PRN remove old R femoral; new IJ triple lumen Prophylaxis - heparin SC q8, protonix IV daily Disposition Family Meeting re: terminal extubation vs trach/peg Consider [place] [facility], Mr. Marquez, Consult Ner[place] - Dr. Nieves Cardio - Dr. Ramírez Nephro - Dr. Rae Palliative consult s/r/d/w Dr. Orozco - Date & Time Date: 02/09/17 Time: 08:48 <Leobardo Orozco - Last Filed: 02/10/17 14:15> CCU Objective - Vital Signs / Intake & Output Vital Signs (Last 4 hours): Vital Signs Temp Pulse BP Pulse Ox 02/10/17 14:00 99.1 F 96 H 125/67 95 02/10/17 13:47 99.1 F 95 H 113/79 94 L 02/10/17 13:30 99.3 F 90 78/38 L 94 L 02/10/17 13:27 99.3 F 88 101/54 L 94 L 02/10/17 13:00 99.3 F 95 H 143/60 95 02/10/17 12:30 99.3 F 93 H 114/54 L 95 02/10/17 12:00 99.1 F 113 H 127/64 95 02/10/17 11:30 99.3 F 116 H 114/62 95 02/10/17 11:00 99.1 F 107 H 115/52 L 95 02/10/17 10:40 99.1 F 132 H 122/75 95 02/10/17 10:30 99.1 F 136 H 101/49 L 95 Intake and Output (Last 8hrs): Intake & Output 02/09/17 02/10/17 02/10/17 22:59 06:59 14:59 Intake Total 1520 50 Output Total 150 Balance 1370 50 Intake: IV 1200 50 Right Internal Jugular 1200 Tube Feeding 120 Other 200 Output: Urine 50 Urethral (Garcia) 50 Stool 100 Other: Voiding Method Indwelling Catheter Indwelling Catheter - Medications Active Medications: Active Medications Generic Name Dose Route Start Last Admin Trade Name Freq PRN Reason Stop Dose Admin Aspirin 325 mg 02/07/17 10:00 02/10/17 09:49 Aspirin PO 325 mg DAILY CHUCHO Administration Heparin Sodium (Porcine) 5,000 units 02/06/17 22:00 02/10/17 05:46 Heparin SC 5,000 units Q8 CHUCHO Administration Protocol NOREPINEPHRINE BIT/0.9 % NACL 4 mg in 250 mls @ 15 mls/hr 02/06/17 15:09 09/28 12:15 Levophed 4 Mg/ 250 Ml Ns Premixed IV 6 mcg/min .[id number] PRN 22.5 mls/hr TITRATE PER MD ORDER Titration Protocol 4 MCG/MIN Sodium Chloride 1,000 mls @ 100 mls/hr 02/06/17 19:00 02/10/17 04:37 Sodium Chloride 0.9% IV 100 mls/hr .Q10H CHUCHO Administration Meropenem 250 mg/ Sodium 100 mls @ 100 mls/hr 02/09/17 10:15 02/10/17 09:49 Chloride IVPB 02/16/17 10:16 100 mls/hr Q8H CHUCHO Administration Protocol Lorazepam 1 mg 02/06/17 18:19 02/06/17 22:29 Ativan IVP 1 mg Q2H PRN Administration Seizure activity Protocol Pantoprazole Sodium 40 mg 02/07/17 10:00 02/10/17 09:50 Protonix Inj IVP 40 mg DAILY CHUCHO Administration - Patient Studies Lab Studies: Microbiology Studies 02/07/17 23:00 Blood Culture - Preliminary Blood-Venous NO GROWTH AFTER 48 HOURS 02/07/17 22:30 Blood Culture - Preliminary Blood-Venous NO GROWTH AFTER 48 HOURS 02/08/17 23:00 Blood Culture - Preliminary Blood-Venous NO GROWTH AFTER 24 HOURS 02/08/17 22:50 Blood Culture - Preliminary Blood-Venous NO GROWTH AFTER 24 HOURS Lab Studies 02/10/17 02/10/17 02/10/17 Range/Units 06:00 06:00 06:00 WBC 10.2 (4.5-11.0) 10^3/ul RBC 3.40 L (3.5-6.1) 10^6/uL Hgb 9.2 L (14.0-18.0) gm/dL Hct 29.1 L (42.0-52.0) % MCV 85.6 (80.0-105.0) fL MCH 27.1 (25.0-35.0) pg MCHC 31.6 (31.0-37.0) g/dl RDW 16.3 H (11.5-14.5) % Plt Count 173 (120.0-450.0) 10^3/uL MPV 10.0 (7.0-11.0) fl Gran % 78.0 H (50.0-68.0) % Lymph % (Auto) 13.6 L (22.0-35.0) % [place] % (Auto) 5.0 (1.0-6.0) % Eos % (Auto) 3.3 (1.5-5.0) % Baso % (Auto) 0.1 (0.0-3.0) % Gran # 7.95 H (1.4-6.5) Lymph # 1.4 (1.2-3.4) [place] # 0.5 (0.1-0.6) Eos # 0.3 (0.0-0.7) Baso # 0.01 (0.0-2.0) K/mm3 PT 12.1 H (9.9-11.8) Seconds INR 1.12 H (0.93-1.08) APTT 25.6 (23.7-30.8) Seconds pCO2 (35-45) mm/Hg pO2 (80-100) mm/Hg HCO3 (21-28) mmol/L ABG pH (7.35-7.45) ABG Total CO2 (22-28) mmol.L ABG O2 Saturation (95-98) % ABG O2 Content (15-23) ML/dl ABG Base Excess (-2.0-3.0) mmol/L ABG Hemoglobin (11.7-17.4) g/dL ABG Carboxyhemoglobin (0.5-1.5) % POC ABG HHb (Measured) (0-5) % ABG Methemoglobin (0.0-3.0) % ABG O2 Capacity (16-24) mL/dl Hgb O2 Saturation (95.0-98.0) % FiO2 % Sodium 148 (132-148) mmol/L Potassium 3.5 L (3.6-5.0) mmol/L Chloride 117 H (98-107) mmol/L Carbon Dioxide 21 (21-33) mmol/L Anion Gap 14 (10-20) BUN 64 H (7-21) mg/dL Creatinine 11.1 H* (0.5-1.4) mg/dL Est GFR ( Amer) 6 Est GFR (Non-Af Amer) 5 Random Glucose 107 (70-110) mg/dL Calcium 8.7 (8.4-10.5) mg/dL Phosphorus 4.8 H (2.5-4.5) mg/dL Magnesium 1.9 (1.7-2.2) mg/dL Total Bilirubin 0.7 (0.2-1.3) mg/dL AST 54 (15-59) U/L ALT 68 H (7-56) U/L Alkaline Phosphatase 122 (38-133) U/L Total Protein 5.2 L (5.8-8.3) g/dL Albumin 2.3 L (3.0-4.8) g/dL Globulin 2.9 gm/dL Albumin/Globulin Ratio 0.8 L (1.1-1.8) 02/10/17 02/09/17 02/09/17 Range/Units 05:15 22:30 22:30 WBC 10.8 D (4.5-11.0) 10^3/ul RBC 3.45 L (3.5-6.1) 10^6/uL Hgb 9.2 L (14.0-18.0) gm/dL Hct 29.3 L (42.0-52.0) % MCV 84.9 (80.0-105.0) fL MCH 26.7 (25.0-35.0) pg MCHC 31.4 (31.0-37.0) g/dl RDW 16.2 H (11.5-14.5) % Plt Count 166 (120.0-450.0) 10^3/uL MPV 9.5 (7.0-11.0) fl Gran % (50.0-68.0) % Lymph % (Auto) (22.0-35.0) % [place] % (Auto) (1.0-6.0) % Eos % (Auto) (1.5-5.0) % Baso % (Auto) (0.0-3.0) % Gran # (1.4-6.5) Lymph # (1.2-3.4) [place] # (0.1-0.6) Eos # (0.0-0.7) Baso # (0.0-2.0) K/mm3 PT (9.9-11.8) Seconds INR (0.93-1.08) APTT (23.7-30.8) Seconds pCO2 36 (35-45) mm/Hg pO2 97.0 (80-100) mm/Hg HCO3 18.5 L (21-28) mmol/L ABG pH 7.32 L (7.35-7.45) ABG Total CO2 19.6 L (22-28) mmol.L ABG O2 Saturation 99.0 H (95-98) % ABG O2 Content 13.1 L (15-23) ML/dl ABG Base Excess -6.9 L (-2.0-3.0) mmol/L ABG Hemoglobin 9.6 L (11.7-17.4) g/dL ABG Carboxyhemoglobin 1.9 H (0.5-1.5) % POC ABG HHb (Measured) 1.0 (0-5) % ABG Methemoglobin 1.1 (0.0-3.0) % ABG O2 Capacity 13.2 L (16-24) mL/dl Hgb O2 Saturation 96.0 (95.0-98.0) % FiO2 60.0 % Sodium 146 (132-148) mmol/L Potassium 3.4 L (3.6-5.0) mmol/L Chloride 116 H (98-107) mmol/L Carbon Dioxide 20 L (21-33) mmol/L Anion Gap 13 (10-20) BUN 62 H (7-21) mg/dL Creatinine 10.4 H* (0.5-1.4) mg/dL Est GFR ( Amer) 6 Est GFR (Non-Af Amer) 5 Random Glucose 108 (70-110) mg/dL Calcium 8.5 (8.4-10.5) mg/dL Phosphorus 5.0 H (2.5-4.5) mg/dL Magnesium 1.9 (1.7-2.2) mg/dL Total Bilirubin 0.8 (0.2-1.3) mg/dL AST 55 (15-59) U/L ALT 79 H (7-56) U/L Alkaline Phosphatase 103 (38-133) U/L Total Protein 5.2 L (5.8-8.3) g/dL Albumin 2.3 L (3.0-4.8) g/dL Globulin 2.9 gm/dL Albumin/Globulin Ratio 0.8 L (1.1-1.8) 02/09/17 02/09/17 Range/Units 15:30 15:30 WBC 14.0 H (4.5-11.0) 10^3/ul RBC 3.61 (3.5-6.1) 10^6/uL Hgb 10.0 L (14.0-18.0) gm/dL Hct 31.0 L (42.0-52.0) % MCV 85.9 (80.0-105.0) fL MCH 27.7 (25.0-35.0) pg MCHC 32.3 (31.0-37.0) g/dl RDW 16.1 H (11.5-14.5) % Plt Count 180 (120.0-450.0) 10^3/uL MPV 10.2 (7.0-11.0) fl Gran % (50.0-68.0) % Lymph % (Auto) (22.0-35.0) % [place] % (Auto) (1.0-6.0) % Eos % (Auto) (1.5-5.0) % Baso % (Auto) (0.0-3.0) % Gran # (1.4-6.5) Lymph # (1.2-3.4) [place] # (0.1-0.6) Eos # (0.0-0.7) Baso # (0.0-2.0) K/mm3 PT (9.9-11.8) Seconds INR (0.93-1.08) APTT (23.7-30.8) Seconds pCO2 (35-45) mm/Hg pO2 (80-100) mm/Hg HCO3 (21-28) mmol/L ABG pH (7.35-7.45) ABG Total CO2 (22-28) mmol.L ABG O2 Saturation (95-98) % ABG O2 Content (15-23) ML/dl ABG Base Excess (-2.0-3.0) mmol/L ABG Hemoglobin (11.7-17.4) g/dL ABG Carboxyhemoglobin (0.5-1.5) % POC ABG HHb (Measured) (0-5) % ABG Methemoglobin (0.0-3.0) % ABG O2 Capacity (16-24) mL/dl Hgb O2 Saturation (95.0-98.0) % FiO2 % Sodium 146 (132-148) mmol/L Potassium 3.4 L (3.6-5.0) mmol/L Chloride 116 H (98-107) mmol/L Carbon Dioxide 18 L (21-33) mmol/L Anion Gap 15 (10-20) BUN 60 H (7-21) mg/dL Creatinine 9.8 H* (0.5-1.4) mg/dL Est GFR ( Amer) 7 Est GFR (Non-Af Amer) 6 Random Glucose 116 H (70-110) mg/dL Calcium 8.6 (8.4-10.5) mg/dL Phosphorus (2.5-4.5) mg/dL Magnesium (1.7-2.2) mg/dL Total Bilirubin 0.9 (0.2-1.3) mg/dL AST 65 H (15-59) U/L ALT 89 H (7-56) U/L Alkaline Phosphatase 111 (38-133) U/L Total Protein 5.4 L (5.8-8.3) g/dL Albumin 2.6 L (3.0-4.8) g/dL Globulin 2.8 gm/dL Albumin/Globulin Ratio 0.9 L (1.1-1.8) Laboratory Results - last 24 hr 02/09/17 02/09/17 02/09/17 15:30 15:30 22:30 WBC 14.0 H 10.8 D RBC 3.61 3.45 L Hgb 10.0 L 9.2 L Hct 31.0 L 29.3 L MCV 85.9 84.9 MCH 27.7 26.7 MCHC 32.3 31.4 RDW 16.1 H 16.2 H Plt Count 180 166 MPV 10.2 9.5 Gran % Lymph % (Auto) [place] % (Auto) Eos % (Auto) Baso % (Auto) Gran # Lymph # [place] # Eos # Baso # PT INR APTT pCO2 pO2 HCO3 ABG pH ABG Total CO2 ABG O2 Saturation ABG O2 Content ABG Base Excess ABG Hemoglobin ABG Carboxyhemoglobin POC ABG HHb (Measured) ABG Methemoglobin ABG O2 Capacity Hgb O2 Saturation FiO2 Sodium 146 Potassium 3.4 L Chloride 116 H Carbon Dioxide 18 L Anion Gap 15 BUN 60 H Creatinine 9.8 H* Est GFR ( Amer) 7 Est GFR (Non-Af Amer) 6 Random Glucose 116 H Calcium 8.6 Phosphorus Magnesium Total Bilirubin 0.9 AST 65 H ALT 89 H Alkaline Phosphatase 111 Total Protein 5.4 L Albumin 2.6 L Globulin 2.8 Albumin/Globulin Ratio 0.9 L 02/09/17 02/10/17 02/10/17 22:30 05:15 06:00 WBC 10.2 RBC 3.40 L Hgb 9.2 L Hct 29.1 L MCV 85.6 MCH 27.1 MCHC 31.6 RDW 16.3 H Plt Count 173 MPV 10.0 Gran % 78.0 H Lymph % (Auto) 13.6 L [place] % (Auto) 5.0 Eos % (Auto) 3.3 Baso % (Auto) 0.1 Gran # 7.95 H Lymph # 1.4 [place] # 0.5 Eos # 0.3 Baso # 0.01 PT INR APTT pCO2 36 pO2 97.0 HCO3 18.5 L ABG pH 7.32 L ABG Total CO2 19.6 L ABG O2 Saturation 99.0 H ABG O2 Content 13.1 L ABG Base Excess -6.9 L ABG Hemoglobin 9.6 L ABG Carboxyhemoglobin 1.9 H POC ABG HHb (Measured) 1.0 ABG Methemoglobin 1.1 ABG O2 Capacity 13.2 L Hgb O2 Saturation 96.0 FiO2 60.0 Sodium 146 Potassium 3.4 L Chloride 116 H Carbon Dioxide 20 L Anion Gap 13 BUN 62 H Creatinine 10.4 H* Est GFR ( Amer) 6 Est GFR (Non-Af Amer) 5 Random Glucose 108 Calcium 8.5 Phosphorus 5.0 H Magnesium 1.9 Total Bilirubin 0.8 AST 55 ALT 79 H Alkaline Phosphatase 103 Total Protein 5.2 L Albumin 2.3 L Globulin 2.9 Albumin/Globulin Ratio 0.8 L 02/10/17 02/10/17 06:00 06:00 WBC RBC Hgb Hct MCV MCH MCHC RDW Plt Count MPV Gran % Lymph % (Auto) [place] % (Auto) Eos % (Auto) Baso % (Auto) Gran # Lymph # [place] # Eos # Baso # PT 12.1 H INR 1.12 H APTT 25.6 pCO2 pO2 HCO3 ABG pH ABG Total CO2 ABG O2 Saturation ABG O2 Content ABG Base Excess ABG Hemoglobin ABG Carboxyhemoglobin POC ABG HHb (Measured) ABG Methemoglobin ABG O2 Capacity Hgb O2 Saturation FiO2 Sodium 148 Potassium 3.5 L Chloride 117 H Carbon Dioxide 21 Anion Gap 14 BUN 64 H Creatinine 11.1 H* Est GFR ( Amer) 6 Est GFR (Non-Af Amer) 5 Random Glucose 107 Calcium 8.7 Phosphorus 4.8 H Magnesium 1.9 Total Bilirubin 0.7 AST 54 ALT 68 H Alkaline Phosphatase 122 Total Protein 5.2 L Albumin 2.3 L Globulin 2.9 Albumin/Globulin Ratio 0.8 L EKG/Cardiology Studies: Cardiology / EKG Studies 02/10/17 08:27 EKG [ELECTROCARDIOGRAM] Stat Comment: Reason For Exam: tachy Attending/Attestation - Attestation I have personally seen and examined this patient.: Yes I have fully participated in the care of the patient.: Yes I have reviewed all pertinent clinical information: Yes Notes (Text): 02/10/17 14:15 please see my note on paper in the chart ccm time 40 min
--- NOTE | 2017-02-09 08:55 | CP.PCM.PN ---
Subjective - Date & Time of Evaluation Date of Evaluation: 02/09/17 Time of Evaluation: 08:45 - Subjective Subjective: Subjective: Patient seen and examined at bedside in ICU. Remains clinically unchanged. Objective: VS: T 97.6, P 80, BP 137/78, RR 18 Gen: intubated, sedated HEENT: pupils fixed, ETT in place Neck: no JVD Lungs: coarse transmitted upper airway sounds with decreased BS to left base CV: RRR, normal S1, S2 Abd: obese, NABS, soft, ND Ext: no edema Neuro: unresponsive, no withdrawl from noxious stimuli Labs: Reviewed and demonstrate worsening renal function Assessment: 51 yo man with chronic opiate dependence and HCV who was admitted to ICU s/p cardiac arrest x 4 s/p intubation in the field secondary to opiate overdose who remains intubated in the ICU with acute hypoxic respiratory failure, anoxic brain injury and acute renal failure Plan: 1. Anoxic brain injury. Input from Dr. Nieves noted and appreciated and findings of nuclear bran scan reviewed and demonstrate findings consistent with anoxic brain injury. The patient remains unresponsive and with no clinical change. 2. Acute hypoxic respiratory failure. Patient not a candidate for weaning trials given neurologic insult. c/w mechanical ventilation as per discharging machine operator and maintain HOB > 30 degrees 3. Sepsis secondary to aspiration pneumonia. Input from Dr. Loyola appreciated, c/w current antimicrobials 4. ROSALIO. Labs demonstrate worsening renal function likely secondary to ATN secondary to cardiac arrest. c/w IVF hydration and vasopressors as needed. monitor daily renal function and maintain strict I/Os 5. NSTEMI. c/w care as per Dr. Ramírez. Code Status: Full Code Objective - Vital Signs/Intake and Output Vital Signs (last 24 hours): Temp Pulse Resp BP Pulse Ox 97.9 F 104 H 28 H 117/66 96 02/09/17 08:20 02/09/17 08:20 02/09/17 05:30 02/09/17 08:00 02/09/17 08:20 Intake and Output: 02/09/17 02/09/17 06:59 18:59 Intake Total 1560 Output Total 850 Balance 710 - Medications Medications: Current Medications Aspirin (Aspirin) 325 mg PO DAILY [facility] Last Admin: 02/08/17 09:50 Dose: 325 mg Heparin Sodium (Porcine) (Heparin) 5,000 units SC Q8 [facility] PRN Reason: Protocol Last Admin: 02/09/17 05:32 Dose: 5,000 units NOREPINEPHRINE BIT/0.9 % NACL (Levophed 4 Mg/ 250 Ml Ns Premixed) 4 mg in 250 mls @ 15 mls/hr IV .[id number] PRN; Protocol; 4 MCG/MIN PRN Reason: TITRATE PER MD ORDER Last Admin: 02/08/17 10:00 Dose: 8 mcg/min, 30 mls/hr Sodium Chloride (Sodium Chloride 0.9%) 1,000 mls @ 100 mls/hr IV .Q10H [facility] Last Admin: 02/08/17 21:06 Dose: 100 mls/hr Daptomycin 790 mg/ Sodium (Chloride) 100 mls @ 200 mls/hr IV Q48H [facility] Stop: 02/16/17 19:46 Last Admin: 02/07/17 22:00 Dose: 200 mls/hr Meropenem 500 mg/ Sodium (Chloride) 100 mls @ 100 mls/hr IVPB Q8 [facility] PRN Reason: Protocol Stop: 02/16/17 22:01 Last Admin: 02/09/17 05:30 Dose: 100 mls/hr Lorazepam (Ativan) 1 mg IVP Q2H PRN; Protocol PRN Reason: Seizure activity Last Admin: 02/06/17 22:29 Dose: 1 mg Pantoprazole Sodium (Protonix Inj) 40 mg IVP DAILY [facility] Last Admin: 02/08/17 09:49 Dose: 40 mg - Labs Labs: 02/09/17 07:10 02/09/17 07:10 PT 12.7 Seconds (9.9-11.8) H 02/09/17 07:10 INR 1.18 (0.93-1.08) H 02/09/17 07:10 APTT 31.5 Seconds (23.7-30.8) H 02/09/17 07:10
--- NOTE | 2017-02-09 09:49 | RAD ---
HISTORY: Intubated, pneumonia. COMPARISON: Multiple serial examinations preceding the most recent study: February 08, 2017. FINDINGS: LUNGS: Improved aeration of the lungs. PLEURA: No significant pleural effusion identified, no pneumothorax apparent. CARDIOVASCULAR: No radiographic findings to suggest acute or significant cardiovascular disease. OSSEOUS STRUCTURES: No significant abnormalities. VISUALIZED UPPER ABDOMEN: Normal. OTHER FINDINGS: Stable, satisfactory position ventilatory, vascular and nasogastric apparatus. IMPRESSION: No significant interval change compared to the prior examination(s).
--- NOTE | 2017-02-09 10:16 | CP.PCM.PN ---
Subjective - Date & Time of Evaluation Date of Evaluation: 02/09/17 Time of Evaluation: 07:00 - Subjective Subjective: DOING POORLY Objective - Vital Signs/Intake and Output Vital Signs (last 24 hours): Temp Pulse Resp BP Pulse Ox 97.9 F 104 H 28 H 117/66 96 02/09/17 08:20 02/09/17 08:20 02/09/17 05:30 02/09/17 08:00 02/09/17 08:20 Intake and Output: 02/09/17 02/09/17 06:59 18:59 Intake Total 1560 Output Total 850 Balance 710 - Medications Medications: Current Medications Aspirin (Aspirin) 325 mg PO DAILY [facility] Last Admin: 02/08/17 09:50 Dose: 325 mg Heparin Sodium (Porcine) (Heparin) 5,000 units SC Q8 [facility] PRN Reason: Protocol Last Admin: 02/09/17 05:32 Dose: 5,000 units NOREPINEPHRINE BIT/0.9 % NACL (Levophed 4 Mg/ 250 Ml Ns Premixed) 4 mg in 250 mls @ 15 mls/hr IV .[id number] PRN; Protocol; 4 MCG/MIN PRN Reason: TITRATE PER MD ORDER Last Admin: 02/08/17 10:00 Dose: 8 mcg/min, 30 mls/hr Sodium Chloride (Sodium Chloride 0.9%) 1,000 mls @ 100 mls/hr IV .Q10H [facility] Last Admin: 02/08/17 21:06 Dose: 100 mls/hr Daptomycin 790 mg/ Sodium (Chloride) 100 mls @ 200 mls/hr IV Q48H [facility] Stop: 02/16/17 19:46 Last Admin: 02/07/17 22:00 Dose: 200 mls/hr Meropenem 250 mg/ Sodium (Chloride) 100 mls @ 100 mls/hr IVPB Q8H [facility] PRN Reason: Protocol Stop: 02/16/17 10:16 Lorazepam (Ativan) 1 mg IVP Q2H PRN; Protocol PRN Reason: Seizure activity Last Admin: 02/06/17 22:29 Dose: 1 mg Pantoprazole Sodium (Protonix Inj) 40 mg IVP DAILY [facility] Last Admin: 02/08/17 09:49 Dose: 40 mg - Labs Labs: 02/09/17 07:10 02/09/17 07:10 PT 12.7 Seconds (9.9-11.8) H 02/09/17 07:10 INR 1.18 (0.93-1.08) H 02/09/17 07:10 APTT 31.5 Seconds (23.7-30.8) H 02/09/17 07:10 - Constitutional Appears: Well - Head Exam Head Exam: ATRAUMATIC, NORMAL INSPECTION, NORMOCEPHALIC - Eye Exam Eye Exam: EOMI, Normal appearance, PERRL Pupil Exam: NORMAL ACCOMODATION, PERRL - ENT Exam ENT Exam: Mucous Membranes Moist, Normal Exam - Neck Exam Neck Exam: Full ROM, Normal Inspection. absent: Lymphadenopathy - Respiratory Exam Respiratory Exam: Clear to Ausculation Bilateral, NORMAL BREATHING PATTERN - Cardiovascular Exam Cardiovascular Exam: REGULAR RHYTHM, +S1, +S2. absent: Murmur - GI/Abdominal Exam GI & Abdominal Exam: Soft, Normal Bowel Sounds. absent: Tenderness - Rectal Exam Rectal Exam: NORMAL INSPECTION - Exam Exam: Circumcision, NORMAL INSPECTION External exam: NORMAL EXTERNAL EXAM Speculum exam: NORMAL SPECULUM EXAM Bimanual exam: NORMAL BIMANUAL EXAM - Extremities Exam Extremities Exam: Full ROM, Normal Capillary Refill, Normal Inspection. absent : Joint Swelling, Pedal Edema - Back Exam Back Exam: NORMAL INSPECTION - Neurological Exam Neurological Exam: Alert, Awake, CN II-XII Intact, Normal Gait, Oriented x3 - Psychiatric Exam Psychiatric exam: Normal Affect, Normal Mood - Skin Skin Exam: Dry, Intact, Normal Color, Warm Assessment and Plan (1) Cardiac arrest Status: Acute (2) Overdose Status: Acute (3) Renal failure Status: Acute (4) Sepsis Status: Acute (5) Chest pain Status: Acute (6) Dyspnea on exertion Status: Acute (7) Pleural effusion on right Status: Acute (8) Septic shock due to Gram positive bacteria Status: Acute (9) Staphylococcus epidermidis bacteremia Status: Acute - Assessment and Plan (Free Text) Plan: DAPTO /MERR REPEAT BC NEG CK ECHO
--- NOTE | 2017-02-09 10:53 | CP.PCM.PN ---
Subjective - Date & Time of Evaluation Date of Evaluation: 02/09/17 Time of Evaluation: 11:00 - Subjective Subjective: cardiolgy fu patient remains on vent, unresponsive BP122/71 HR 102 s tach PE male on vent lungs no rales cor s1s2 ext without change MS unresponsive Labs noted Prelim ECHO LVH with mildly decreased LV function Impressions Resp failure anoxic enceph hypotension positive BC's.....?contaminants? Pts LV function with LVH and mildly decreased LV function would NOT benefit from iv inotropes Osbaldo stanley MD Objective - Vital Signs/Intake and Output Vital Signs (last 24 hours): Temp Pulse Resp BP Pulse Ox 97.9 F 104 H 28 H 117/66 96 02/09/17 08:20 02/09/17 08:20 02/09/17 05:30 02/09/17 08:00 02/09/17 08:20 Intake and Output: 02/09/17 02/09/17 06:59 18:59 Intake Total 1560 Output Total 850 Balance 710 - Medications Medications: Current Medications Aspirin (Aspirin) 325 mg PO DAILY [facility] Last Admin: 02/09/17 10:34 Dose: 325 mg Heparin Sodium (Porcine) (Heparin) 5,000 units SC Q8 [facility] PRN Reason: Protocol Last Admin: 02/09/17 05:32 Dose: 5,000 units NOREPINEPHRINE BIT/0.9 % NACL (Levophed 4 Mg/ 250 Ml Ns Premixed) 4 mg in 250 mls @ 15 mls/hr IV .[id number] PRN; Protocol; 4 MCG/MIN PRN Reason: TITRATE PER MD ORDER Last Admin: 02/08/17 10:00 Dose: 8 mcg/min, 30 mls/hr Sodium Chloride (Sodium Chloride 0.9%) 1,000 mls @ 100 mls/hr IV .Q10H [facility] Last Admin: 02/08/17 21:06 Dose: 100 mls/hr Daptomycin 790 mg/ Sodium (Chloride) 100 mls @ 200 mls/hr IV Q48H [facility] Stop: 02/16/17 19:46 Last Admin: 02/07/17 22:00 Dose: 200 mls/hr Meropenem 250 mg/ Sodium (Chloride) 100 mls @ 100 mls/hr IVPB Q8H [facility] PRN Reason: Protocol Stop: 02/16/17 10:16 Last Admin: 02/09/17 10:42 Dose: 100 mls/hr Lorazepam (Ativan) 1 mg IVP Q2H PRN; Protocol PRN Reason: Seizure activity Last Admin: 02/06/17 22:29 Dose: 1 mg Pantoprazole Sodium (Protonix Inj) 40 mg IVP DAILY [facility] Last Admin: 02/09/17 10:34 Dose: 40 mg - Labs Labs: 02/09/17 07:10 02/09/17 07:10 PT 12.7 Seconds (9.9-11.8) H 02/09/17 07:10 INR 1.18 (0.93-1.08) H 02/09/17 07:10 APTT 31.5 Seconds (23.7-30.8) H 02/09/17 07:10
[2017-02-09] MEDS: Sodium Chloride 0.9% 1,000 ML IV SCH (11:02)
--- NOTE | 2017-02-09 20:15 | CARD ---
APPROVED REPORT EXAM: Two-dimensional and M-mode echocardiogram with Doppler and color Doppler. INDICATION S/P CARDIAC ARREST 2D DIMENSIONS Left Atrium (2D)4.1 (1.6-4.0cm)IVSd1.2 (0.7-1.1cm) LVDd5.1 (3.9-5.9cm)PWd1.5 (0.7-1.1cm) M-Mode DIMENSIONS Aortic Root3.40 (2.2-3.7cm)Aortic Cusp Exc.2.20 (1.5-2.0cm) Aortic Valve AoV Peak Ayrzigcl911.0cm/Noreen Peak GR.5mmHg Mitral Valve MV E Trtuvvzt94.9cm/sMV A Mvowlylu11.5cm/sE/A ratio0.6 TDI Lateral E' Peak V3.22cm/sMedial E' Peak V4.48cm/sE/Lateral E'13.3 E/Medial E'9.6 Pulmonary Valve PV Peak Gzoibusn84.6cm/sPV Peak Grad.2mmHg Tricuspid Valve TR Peak [id number]/sRAP [id number] Peak Gr.13mmHg [id number] LEFT VENTRICLE The left ventricle is normal size. There is mild concentric left ventricular hypertrophy. The systolic function is mildly to moderately impaired.EF-35-40% There is mild to moderate hypokinesis in the apical anterior wall. Transmitral Doppler flow pattern is Grade III-reversible restrictive diastolic dysfunction. No left ventricle thrombus noted on this study. There is no ventricular septal defect visualized. There is no left ventricular aneurysm. There is no mass noted in the left ventricle. RIGHT VENTRICLE The right ventricle is normal size. There is normal right ventricular wall thickness. The right ventricular systolic function is normal. ATRIA The left atrium is mildly dilated. The right atrium is borderline dilated. The interatrial septum is intact with no evidence for an atrial septal defect. AORTIC VALVE The aortic valve is thickened but opens well. No aortic regurgitation is present. There is no aortic valvular stenosis. There is no aortic valvular vegetation. MITRAL VALVE The mitral valve is thickened but opens well. Mitral regurgitation is trace. There is no mitral valve stenosis. There is no evidence of mitral valve prolapse. TRICUSPID VALVE The tricuspid valve leaflets are thickened , but open well. There is trace tricuspid regurgitation.RVSP-23 mmof Hg There is no tricuspid valve stenosis. There is no tricuspid valve prolapse or vegetation. PULMONIC VALVE The pulmonic valve is not well visualized. GREAT VESSELS The aortic root is normal in size. The ascending aorta is normal in size. The pulmonary artery is normal. The IVC is dilated. PERICARDIAL EFFUSION There is no pleural effusion. There is no pericardial effusion. <Conclusion> The left ventricle is normal size. There is mild concentric left ventricular hypertrophy. The systolic function is mildly to moderately impaired.EF-35-40% Mitral regurgitation is trace. There is trace tricuspid regurgitation.RVSP-23 mmof Hg There is no pericardial effusion.
[2017-02-09 21:04] LABS: ALB/GLOB RATIO 0.9 (1.1-1.8); ALBUMIN 2.6 g/dL (3.0-4.8); CALCIUM 8.6 mg/dL (8.4-10.5)
[2017-02-09 21:13] LABS: MEAN CELL VOLUME 85.9 fL (80.0-105.0); MEAN CORPUSCULAR HEMOGLOBIN 27.7 pg (25.0-35.0); MEAN CORPUSCULAR HGB CONC 32.3 g/dl (31.0-37.0); MEAN PLATELET VOLUME 10.2 fl (7.0-11.0); RBC 3.61 10^6/uL (3.5-6.1); RED CELL DISTRIBUTION WIDTH 16.1 % (11.5-14.5)
[2017-02-09 22:54] LABS: HEMOGLOBIN 9.2 gm/dL (14.0-18.0); MEAN CELL VOLUME 84.9 fL (80.0-105.0); MEAN CORPUSCULAR HEMOGLOBIN 26.7 pg (25.0-35.0); MEAN CORPUSCULAR HGB CONC 31.4 g/dl (31.0-37.0); MEAN PLATELET VOLUME 9.5 fl (7.0-11.0); RBC 3.45 10^6/uL (3.5-6.1); RED CELL DISTRIBUTION WIDTH 16.2 % (11.5-14.5); WHITE BLOOD COUNT 10.8 10^3/ul (4.5-11.0)
[2017-02-09 23:09] LABS: ALB/GLOB RATIO 0.8 (1.1-1.8); ALBUMIN 2.3 g/dL (3.0-4.8); CALCIUM 8.5 mg/dL (8.4-10.5); MAGNESIUM 1.9 mg/dL (1.7-2.2)
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
[2017-02-10] MEDS: Sodium Chloride 0.9% 1,000 ML IV SCH (04:37)
[2017-02-10 05:39] LABS: ARTERIAL BLOOD GAS HCO3 18.5 mmol/L (21-28); ARTERIAL BLOOD GAS HEMOGLOBIN 9.6 g/dL (11.7-17.4); ARTERIAL BLOOD GAS O2 CAPACITY 13.2 mL/dl (16-24); ARTERIAL BLOOD GAS O2 CONTENT 13.1 ML/dl (15-23); ARTERIAL BLOOD GAS PCO2 36 mm/Hg (35-45); ARTERIAL BLOOD GAS PH 7.32 (7.35-7.45); ARTERIAL BLOOD GAS TCO2 19.6 mmol.L (22-28)
[2017-02-10 06:19] LABS: BASO # 0.01 K/mm3 (0.0-2.0); BASO % 0.1 % (0.0-3.0); EOS # 0.3 (0.0-0.7); EOS % 3.3 % (1.5-5.0); GRAN # 7.95 (1.4-6.5); HEMOGLOBIN 9.2 gm/dL (14.0-18.0); LYMPH # 1.4 (1.2-3.4); LYMPH % 13.6 % (22.0-35.0); MEAN CELL VOLUME 85.6 fL (80.0-105.0); MEAN CORPUSCULAR HEMOGLOBIN 27.1 pg (25.0-35.0); MEAN CORPUSCULAR HGB CONC 31.6 g/dl (31.0-37.0); MONO # 0.5 (0.1-0.6); PLATELET COUNT 173 10^3/uL (120.0-450.0); RED CELL DISTRIBUTION WIDTH 16.3 % (11.5-14.5); WHITE BLOOD COUNT 10.2 10^3/ul (4.5-11.0)
[2017-02-10 06:28] LABS: ALB/GLOB RATIO 0.8 (1.1-1.8); ALBUMIN 2.3 g/dL (3.0-4.8); CALCIUM 8.7 mg/dL (8.4-10.5); INR 1.12 (0.93-1.08); MAGNESIUM 1.9 mg/dL (1.7-2.2); PARTIAL THROMBOPLASTIN TIME 25.6 Seconds (23.7-30.8); PROTHROMBIN TIME 12.1 Seconds (9.9-11.8)
[2017-02-10] MEDS: NOREPINEPHRINE BIT/0.9 % NACL 4 MG/250 ML BAG IV PRN ×2 (07:09→17:20)
--- NOTE | 2017-02-10 07:53 | CP.PCM.PN ---
<Laura Concepcion - Last Filed: 02/10/17 10:12> Subjective - Date & Time of Evaluation Date of Evaluation: 02/10/17 Time of Evaluation: 07:50 - Subjective Subjective: ICU Progress Note Patient seen and examined at bedside. There were no acute overnight events. Patient had a large BM this morning with minimal urine output. He is tachycardic this am. Patient is off sedation, intubated, non-responsive. ROS could not be obtained. Objective - Vital Signs/Intake and Output Vital Signs (last 24 hours): Temp Pulse Resp BP Pulse Ox 99.3 F 129 H 28 H 100/74 95 02/10/17 07:05 02/10/17 07:05 02/09/17 05:30 02/10/17 07:05 02/10/17 07:05 - Medications Medications: Current Medications Aspirin (Aspirin) 325 mg PO DAILY [facility] Last Admin: 02/09/17 10:34 Dose: 325 mg Heparin Sodium (Porcine) (Heparin) 5,000 units SC Q8 [facility] PRN Reason: Protocol Last Admin: 02/10/17 05:46 Dose: 5,000 units NOREPINEPHRINE BIT/0.9 % NACL (Levophed 4 Mg/ 250 Ml Ns Premixed) 4 mg in 250 mls @ 15 mls/hr IV .[id number] PRN; Protocol; 4 MCG/MIN PRN Reason: TITRATE PER MD ORDER Last Admin: 02/10/17 07:09 Dose: 6 mcg/min, 22.5 mls/hr Sodium Chloride (Sodium Chloride 0.9%) 1,000 mls @ 100 mls/hr IV .Q10H [facility] Last Admin: 02/10/17 04:37 Dose: 100 mls/hr Meropenem 250 mg/ Sodium (Chloride) 100 mls @ 100 mls/hr IVPB Q8H [facility] PRN Reason: Protocol Stop: 02/16/17 10:16 Last Admin: 02/10/17 05:48 Dose: 100 mls/hr Potassium Chloride (Potassium Chloride 10 Meq/100 Ml) 10 meq in 100 mls @ 100 mls/hr IVPB Q2H [facility] Stop: 02/10/17 10:14 Lorazepam (Ativan) 1 mg IVP Q2H PRN; Protocol PRN Reason: Seizure activity Last Admin: 02/06/17 22:29 Dose: 1 mg Pantoprazole Sodium (Protonix Inj) 40 mg IVP DAILY [facility] Last Admin: 02/09/17 10:34 Dose: 40 mg - Labs Labs: 02/10/17 06:00 02/10/17 06:00 PT 12.1 Seconds (9.9-11.8) H 02/10/17 06:00 INR 1.12 (0.93-1.08) H 02/10/17 06:00 APTT 25.6 Seconds (23.7-30.8) 02/10/17 06:00 - Constitutional Appears: No Acute Distress - Head Exam Head Exam: ATRAUMATIC, NORMAL INSPECTION, NORMOCEPHALIC - Eye Exam Eye Exam: Normal appearance. absent: PERRL Pupil Exam: Fixed, NORMAL ACCOMODATION. absent: PERRL - ENT Exam ENT Exam: Mucous Membranes Moist - Respiratory Exam Respiratory Exam: Rhonchi, NORMAL BREATHING PATTERN. absent: Clear to Ausculation Bilateral, Rales, Wheezes - Cardiovascular Exam Cardiovascular Exam: Tachycardia, REGULAR RHYTHM, +S1, +S2. absent: Gallop, Rubs, Murmur - GI/Abdominal Exam GI & Abdominal Exam: Distended, Soft, Normal Bowel Sounds. absent: Rigid, Tenderness, Mass, Rebound - Extremities Exam Extremities Exam: Pedal Edema - Neurological Exam Neurological Exam: absent: Alert, Awake, Oriented x3 Additional comments: Brain stem reflexes not intact: No dolls eye, gag or corneal reflex - Skin Skin Exam: Dry, Normal Color, Warm Assessment and Plan - Assessment and Plan (Free Text) Assessment: This is a 51Y M with PMH CAD and heroin abuse who was was found in cardiopulminary arrest most likely secondary to heroin overdose. Patient has anoxic brain injury and is intubated, not of sedation. He is noted to be in septic shock with MODS (hypotension, NSTEMI, shock liver, ROSALIO) Plan: Neuro: Intubated, no sedation Anoxic brain injury Brain perfusion scan showed no blood flow, but pt can breath on own Neuro check Seizure precaution, aspiration precaution Ativan prn Neuro consulted CV: Pt had NSTEMI- no plan for cath at this time On Levophed- increased to 8 today Now tachycardic. EKG shows atrial flutter Will give Lopressor 5mg IVP once Cardio consulted Pulm: Pt on VC: 60/10/28/400 ABG showed metabolic acidosis with respiratory compensation Protective lung ventilation strategy HOB elevated Maintain spO2>90% GI: Pt had BM this am Enteral feeds as tolerated Rectal tube in place- monitor output Nephro: ROSALIO worsening with ATN secondary to shock Oliguria Monitor I&O and electrolytes Maintain euvolemia Nephro consulted- recs appreciated Heme: Hgb stable- no overt signs of bleeding Transfusion threshold<10 ID: Repeat blood culture negative afebrile, no leukocytosis CXR showed bilateral infiltrate Hep C + ID consulted- recs appreciated On Merrem Maintain normothermia Endo: ISS, BGM q8h Maintain eugylcemia GI ppx: Protonix DVT ppx: Heparin SC Dispo: Will have family meeting today to continue current management versus terminal extubation Case seen, discussed and reviewed with attending. Cammie Concepcion PGY2 <Leobardo Orozco - Last Filed: 02/10/17 14:33> Objective - Vital Signs/Intake and Output Vital Signs (last 24 hours): Temp Pulse Resp BP Pulse Ox 99.1 F 96 H 28 H 125/67 95 02/10/17 14:00 02/10/17 14:00 02/10/17 07:35 02/10/17 14:00 02/10/17 14:00 Intake and Output: 02/10/17 02/10/17 06:59 18:59 Intake Total 1520 50 Output Total 150 Balance 1370 50 - Medications Medications: Current Medications Aspirin (Aspirin) 325 mg PO DAILY [facility] Last Admin: 02/10/17 09:49 Dose: 325 mg Heparin Sodium (Porcine) (Heparin) 5,000 units SC Q8 [facility] PRN Reason: Protocol Last Admin: 02/10/17 05:46 Dose: 5,000 units NOREPINEPHRINE BIT/0.9 % NACL (Levophed 4 Mg/ 250 Ml Ns Premixed) 4 mg in 250 mls @ 15 mls/hr IV .[id number] PRN; Protocol; 4 MCG/MIN PRN Reason: TITRATE PER MD ORDER Last Titration: 02/10/17 12:15 Dose: 6 mcg/min, 22.5 mls/hr Sodium Chloride (Sodium Chloride 0.9%) 1,000 mls @ 100 mls/hr IV .Q10H [facility] Last Admin: 02/10/17 04:37 Dose: 100 mls/hr Meropenem 250 mg/ Sodium (Chloride) 100 mls @ 100 mls/hr IVPB Q8H [facility] PRN Reason: Protocol Stop: 02/16/17 10:16 Last Admin: 02/10/17 09:49 Dose: 100 mls/hr Lorazepam (Ativan) 1 mg IVP Q2H PRN; Protocol PRN Reason: Seizure activity Last Admin: 02/06/17 22:29 Dose: 1 mg Pantoprazole Sodium (Protonix Inj) 40 mg IVP DAILY [facility] Last Admin: 02/10/17 09:50 Dose: 40 mg - Labs Labs: 02/10/17 06:00 02/10/17 06:00 PT 12.1 Seconds (9.9-11.8) H 02/10/17 06:00 INR 1.12 (0.93-1.08) H 02/10/17 06:00 APTT 25.6 Seconds (23.7-30.8) 02/10/17 06:00 Attending/Attestation - Attestation I have personally seen and examined this patient.: Yes I have fully participated in the care of the patient.: Yes I have reviewed all pertinent clinical information, including history, physical exam and plan: Yes Notes (Text): 02/10/17 14:28 51 yo with distributive shock with MODS, s/p cardiac arrest and anoxic brain injury. On vent support, pressors. Nephro--no HD as it is futile. Spoke with family--they requested terminal extubation later today. ccm time 40 min
[2017-02-10] MEDS ORDERED: Metoprolol 1 mg/ml Inj IVP ONE (09:20)
--- NOTE | 2017-02-10 10:15 | CP.PCM.PN ---
Subjective - Date & Time of Evaluation Date of Evaluation: 02/10/17 Time of Evaluation: 08:00 - Subjective Subjective: POOR CONDITION Objective - Vital Signs/Intake and Output Vital Signs (last 24 hours): Temp Pulse Resp BP Pulse Ox 99.1 F 140 H 28 H 145/84 96 02/10/17 08:00 02/10/17 09:27 02/10/17 07:35 02/10/17 09:27 02/10/17 07:35 Intake and Output: 02/10/17 02/10/17 06:59 18:59 Intake Total 1520 10 Output Total 150 Balance 1370 10 - Medications Medications: Current Medications Aspirin (Aspirin) 325 mg PO DAILY [facility] Last Admin: 02/10/17 09:49 Dose: 325 mg Heparin Sodium (Porcine) (Heparin) 5,000 units SC Q8 [facility] PRN Reason: Protocol Last Admin: 02/10/17 05:46 Dose: 5,000 units NOREPINEPHRINE BIT/0.9 % NACL (Levophed 4 Mg/ 250 Ml Ns Premixed) 4 mg in 250 mls @ 15 mls/hr IV .[id number] PRN; Protocol; 4 MCG/MIN PRN Reason: TITRATE PER MD ORDER Last Titration: 02/10/17 09:49 Dose: 8 mcg/min, 30 mls/hr Sodium Chloride (Sodium Chloride 0.9%) 1,000 mls @ 100 mls/hr IV .Q10H [facility] Last Admin: 02/10/17 04:37 Dose: 100 mls/hr Meropenem 250 mg/ Sodium (Chloride) 100 mls @ 100 mls/hr IVPB Q8H [facility] PRN Reason: Protocol Stop: 02/16/17 10:16 Last Admin: 02/10/17 09:49 Dose: 100 mls/hr Lorazepam (Ativan) 1 mg IVP Q2H PRN; Protocol PRN Reason: Seizure activity Last Admin: 02/06/17 22:29 Dose: 1 mg Pantoprazole Sodium (Protonix Inj) 40 mg IVP DAILY [facility] Last Admin: 02/10/17 09:50 Dose: 40 mg - Labs Labs: 02/10/17 06:00 02/10/17 06:00 PT 12.1 Seconds (9.9-11.8) H 02/10/17 06:00 INR 1.12 (0.93-1.08) H 02/10/17 06:00 APTT 25.6 Seconds (23.7-30.8) 02/10/17 06:00 - Constitutional Appears: Well - Head Exam Head Exam: ATRAUMATIC, NORMAL INSPECTION, NORMOCEPHALIC - Eye Exam Eye Exam: EOMI, Normal appearance, PERRL Pupil Exam: NORMAL ACCOMODATION, PERRL - ENT Exam ENT Exam: Mucous Membranes Moist, Normal Exam - Neck Exam Neck Exam: Full ROM, Normal Inspection. absent: Lymphadenopathy - Respiratory Exam Respiratory Exam: Clear to Ausculation Bilateral, NORMAL BREATHING PATTERN - Cardiovascular Exam Cardiovascular Exam: REGULAR RHYTHM, +S1, +S2. absent: Murmur - GI/Abdominal Exam GI & Abdominal Exam: Soft, Normal Bowel Sounds. absent: Tenderness - Rectal Exam Rectal Exam: NORMAL INSPECTION - Exam Exam: Circumcision, NORMAL INSPECTION External exam: NORMAL EXTERNAL EXAM Speculum exam: NORMAL SPECULUM EXAM Bimanual exam: NORMAL BIMANUAL EXAM - Extremities Exam Extremities Exam: Full ROM, Normal Capillary Refill, Normal Inspection. absent : Joint Swelling, Pedal Edema - Back Exam Back Exam: NORMAL INSPECTION - Neurological Exam Neurological Exam: Alert, Awake, CN II-XII Intact, Normal Gait, Oriented x3 - Psychiatric Exam Psychiatric exam: Normal Affect, Normal Mood - Skin Skin Exam: Dry, Intact, Normal Color, Warm Assessment and Plan (1) Cardiac arrest Status: Acute (2) Overdose Status: Acute (3) Renal failure Status: Acute (4) Sepsis Status: Acute (5) Chest pain Status: Acute (6) Dyspnea on exertion Status: Acute (7) Pleural effusion on right Status: Acute (8) Septic shock due to Gram positive bacteria Status: Acute (9) Staphylococcus epidermidis bacteremia Status: Acute - Assessment and Plan (Free Text) Plan: D/C DAPTO REPEAT BC NEG ON MERR
--- NOTE | 2017-02-10 10:39 | CARD ---
APPROVED REPORT EKG Measurement Heart [id number] <Conclusion> Atrial flutter with 2:[address] abnormality, possible inferior subendocardial injury Abnormal ECG
--- NOTE | 2017-02-10 10:45 | CP.PCM.PN ---
Subjective - Date & Time of Evaluation Date of Evaluation: 02/10/17 Time of Evaluation: 09:45 - Subjective Subjective: Subjective: Patient seen and examined in ICU. Remains intubated, sedated and clinically unchanged. Objective: VS: T 99.1, P 140, BP 145/84, RR 28, O2 96% on vent Gen: intubated, sedated HEENT: pupils fixed, ETT in place Neck: no JVD Lungs: coarse BS sounds with decreased BS to left base CV: tachycardic Abd: obese, soft, ND Ext: trace pedal edema Neuro: intubated, sedated Laboratory Data: Reviewed and demonstrate improving leukocytosis, worsening renal dysfunction and multiple electrolyte abnormalities Assessment: 51 yo man with chronic opiate dependence and HCV who was admitted to ICU s/p cardiac arrest x 4 s/p intubation in the field secondary to suspected opiate overdose with acute hypoxic respiratory failure, multi-organ system failure and anoxic brain injury Plan: 1. Anoxic brain injury. The patient remains clinically unchanged and with a very grim prognosis for any meaningful recovery. Will need to discuss with family goals of care (ie: terminal extubation vs proceeded with PEG/trach). Input from Dr. Nieves noted and appreciated 2. Acute hypoxic respiratory failure. continue with mechanical ventilation as per snowmaker 3. Sepsis secondary to aspiration pneumonia/pneumonitis. Input from Dr. Loyola noted, c/w current antimicrobials. Repeat blood cultures pending 4. ROSALIO. Input from Dr. Rae noted and appreciated. I agree with the futility of pursuing renal replacement therapy given overall grim prognosis and multi- organ system failure. 5. NSTEMI. Input from Dr. Ramírez noted and appreciated. c/w medical management. Code Status: Full Code Objective - Vital Signs/Intake and Output Vital Signs (last 24 hours): Temp Pulse Resp BP Pulse Ox 99.1 F 140 H 28 H 145/84 96 02/10/17 08:00 02/10/17 09:27 02/10/17 07:35 02/10/17 09:27 02/10/17 07:35 Intake and Output: 02/10/17 02/10/17 06:59 18:59 Intake Total 1520 10 Output Total 150 Balance 1370 10 - Medications Medications: Current Medications Aspirin (Aspirin) 325 mg PO DAILY [facility] Last Admin: 02/10/17 09:49 Dose: 325 mg Heparin Sodium (Porcine) (Heparin) 5,000 units SC Q8 [facility] PRN Reason: Protocol Last Admin: 02/10/17 05:46 Dose: 5,000 units NOREPINEPHRINE BIT/0.9 % NACL (Levophed 4 Mg/ 250 Ml Ns Premixed) 4 mg in 250 mls @ 15 mls/hr IV .[id number] PRN; Protocol; 4 MCG/MIN PRN Reason: TITRATE PER MD ORDER Last Titration: 02/10/17 09:49 Dose: 8 mcg/min, 30 mls/hr Sodium Chloride (Sodium Chloride 0.9%) 1,000 mls @ 100 mls/hr IV .Q10H [facility] Last Admin: 02/10/17 04:37 Dose: 100 mls/hr Meropenem 250 mg/ Sodium (Chloride) 100 mls @ 100 mls/hr IVPB Q8H [facility] PRN Reason: Protocol Stop: 02/16/17 10:16 Last Admin: 02/10/17 09:49 Dose: 100 mls/hr Lorazepam (Ativan) 1 mg IVP Q2H PRN; Protocol PRN Reason: Seizure activity Last Admin: 02/06/17 22:29 Dose: 1 mg Pantoprazole Sodium (Protonix Inj) 40 mg IVP DAILY [facility] Last Admin: 02/10/17 09:50 Dose: 40 mg - Labs Labs: 02/10/17 06:00 02/10/17 06:00 PT 12.1 Seconds (9.9-11.8) H 02/10/17 06:00 INR 1.12 (0.93-1.08) H 02/10/17 06:00 APTT 25.6 Seconds (23.7-30.8) 02/10/17 06:00
--- NOTE | 2017-02-10 13:30 | CP.PCM.PN ---
Subjective - Date & Time of Evaluation Date of Evaluation: 02/10/17 Time of Evaluation: 12:45 - Subjective Subjective: Subjective: seen in ICU, lying in bed, unresponsive On mechanical ventilation UO 150 cc Physical Examination: Obese middle-aged male, lying in bed in the ICU, unresponsive, on mechanical ventilation Vital signs: Reviewed HEENT: NC, AT, Pupils 4-5mm, not reactive to light Neck: supple, no JVD appreciated, no bruit Lungs: bilateral equal air entry CVS: S1 S2 RRR, no murmur Abdomen: obese, soft, non-distended, bowel sounds present Ext: 1+ pitting edema Labs: Reviewed Meds: Reviewed Assessment and Plan: 1. ROSALIO, oligoanuric, worsening renal parameters 2. Hypokalemia 3. Metabolic Acidosis 4. Anoxic brain injury 5. Gram+ Bacteremia 6. Drug abuse Patient is critically ill with multi-organ dysfunction, anoxic encephalopathy, respiratory failure, Oligoanuic ROSALIO. Overall prognosis is grim. At this time, discussion with family is needed regarding realistic outcome and goals. Renal replacement therapy seems futile at this point. Family considering terminal extubation Continue current management, broad spectrum antibiotics, ventilatory support, IV fluids for now. Replace K cautiously. Case discussed at length with ICU resident and nurses. > 35 mins spent in the care of this patient. Objective - Vital Signs/Intake and Output Vital Signs (last 24 hours): Temp Pulse Resp BP Pulse Ox 99.3 F 95 H 28 H 143/60 95 02/10/17 13:00 02/10/17 13:00 02/10/17 07:35 02/10/17 13:00 02/10/17 13:00 Intake and Output: 02/10/17 02/10/17 06:59 18:59 Intake Total 1520 50 Output Total 150 Balance 1370 50 - Medications Medications: Current Medications Aspirin (Aspirin) 325 mg PO DAILY [facility] Last Admin: 02/10/17 09:49 Dose: 325 mg Heparin Sodium (Porcine) (Heparin) 5,000 units SC Q8 [facility] PRN Reason: Protocol Last Admin: 02/10/17 05:46 Dose: 5,000 units NOREPINEPHRINE BIT/0.9 % NACL (Levophed 4 Mg/ 250 Ml Ns Premixed) 4 mg in 250 mls @ 15 mls/hr IV .[id number] PRN; Protocol; 4 MCG/MIN PRN Reason: TITRATE PER MD ORDER Last Titration: 02/10/17 12:15 Dose: 6 mcg/min, 22.5 mls/hr Sodium Chloride (Sodium Chloride 0.9%) 1,000 mls @ 100 mls/hr IV .Q10H [facility] Last Admin: 02/10/17 04:37 Dose: 100 mls/hr Meropenem 250 mg/ Sodium (Chloride) 100 mls @ 100 mls/hr IVPB Q8H [facility] PRN Reason: Protocol Stop: 02/16/17 10:16 Last Admin: 02/10/17 09:49 Dose: 100 mls/hr Lorazepam (Ativan) 1 mg IVP Q2H PRN; Protocol PRN Reason: Seizure activity Last Admin: 02/06/17 22:29 Dose: 1 mg Pantoprazole Sodium (Protonix Inj) 40 mg IVP DAILY [facility] Last Admin: 02/10/17 09:50 Dose: 40 mg - Labs Labs: 02/10/17 06:00 02/10/17 06:00 PT 12.1 Seconds (9.9-11.8) H 02/10/17 06:00 INR 1.12 (0.93-1.08) H 02/10/17 06:00 APTT 25.6 Seconds (23.7-30.8) 02/10/17 06:00
--- NOTE | 2017-02-10 13:32 | RAD ---
HISTORY: Intubated, pneumonia. COMPARISON: February 09, 2017. FINDINGS: LUNGS: Stable consolidative changes at the lung bases. PLEURA: No significant interval change compared to the prior examination(s). CARDIOVASCULAR: No radiographic findings to suggest acute or significant cardiovascular disease. Venous access catheter in stable, satisfactory position. OSSEOUS STRUCTURES: No significant abnormalities. VISUALIZED UPPER ABDOMEN: Normal. OTHER FINDINGS: Stable and satisfactory position of endotracheal tube and nasogastric tube. . IMPRESSION: No significant interval change compared to the prior examination(s).
[2017-02-10 15:37] VITALS: O2SAT 94
[2017-02-10 17:38] VITALS: BP 137/83; PULSE 102; RESP 25; TEMP 98.2
[2017-02-10] MEDS ORDERED: Morphine 2 mg/ml ISec IVP PRN (18:14)
--- NOTE | 2017-02-11 16:02 | CP.PCM.PN ---
Subjective - Date & Time of Evaluation Date of Evaluation: 02/11/17 Time of Evaluation: 15:20 - Subjective Subjective: EEG REPORT: CONDITION OF THIS RECORDING: DROWSY DIAGNOSIS: EVALUATE FOR SEIZURE MEDICATIONS:l REVIEWED BY NURSE'S RECONCILIATION INTERPRETATION: THIS IS A 16 CHANNEL INTERNATIONAL RECORDING. THE BACKEND OF THIS TRACING WAS COMPOSED OF 1-2 CYCLES PER SECOND. THERE IS EVIDENCE OF BURST SUPPRESSION AND NO EVIDENCE OF ANY ABNORMAL SEIZURE ACTIVITY. EMG ARTIFICAT WAS SEEN. CONCLUSION: THIS IS AN ABNORMAL EEG SHOWING BURST SUPPRESSION CONSISTENT ANOXIC BRAIN INJURY. Azalea SANTOS MD Objective - Vital Signs/Intake and Output Vital Signs (last 24 hours): Temp Pulse Resp BP Pulse Ox 98.2 F 102 H 25 H 137/83 94 L 02/10/17 17:31 02/10/17 17:31 02/10/17 17:20 02/10/17 17:31 02/10/17 17:31 - Labs Labs: 02/10/17 06:00 02/10/17 06:00 PT 12.1 Seconds (9.9-11.8) H 02/10/17 06:00 INR 1.12 (0.93-1.08) H 02/10/17 06:00 APTT 25.6 Seconds (23.7-30.8) 02/10/17 06:00
[2017-02-13 16:05] LABS: STOOL OSMOLALITY 196 mOsm
--- NOTE | 2017-02-17 10:44 | CP.PCM.DIS ---
Provider - Provider Date of Admission: 02/06/17 14:52 Attending physician: Jayy Dodson MD Primary care physician: NO PRIMARY CARE PROVIDER Consults: Dr. Loyola (infectious disease), Dr. Nieves (neurology), Dr. Ramírez ( cardiology), Jill Real (palliative care) Time Spent in preparation of Discharge (in minutes): 30 Diagnosis - Discharge Diagnosis (1) Anoxic brain damage Status: Acute Hospital Course - Lab Results Lab Results: Micro Results 02/08/17 23:00 Blood-Venous Blood Culture - Final NO GROWTH AFTER 5 DAYS 02/08/17 23:00 Blood-Venous Gram Stain - Final TEST NOT PERFORMED 02/08/17 22:50 Blood-Venous Blood Culture - Final NO GROWTH AFTER 5 DAYS 02/08/17 22:50 Blood-Venous Gram Stain - Final TEST NOT PERFORMED 02/07/17 23:00 Blood-Venous Blood Culture - Final NO GROWTH AFTER 5 DAYS 02/07/17 23:00 Blood-Venous Gram Stain - Final TEST NOT PERFORMED 02/07/17 22:30 Blood-Venous Blood Culture - Final NO GROWTH AFTER 5 DAYS 02/06/17 16:00 Stool Stool Culture - Final NO SALMONELLA, SHIGELLA OR CAMPYLOBACTER ISOLATED. 02/06/17 16:00 Stool Ova and Parasite Concentrate Exam - Final 02/06/17 16:00 Stool C. difficile Antigen & Toxin A,B (M - Final 02/06/17 17:15 Nose MRSA Culture (Admit) - Final MRSA NOT DETECTED 02/06/17 15:00 Urine Urine Culture - Final No Growth (<1,000 CFU/ML) Most Recent Lab Values WBC 10.2 10^3/ul (4.5-11.0) 02/10/17 06:00 RBC 3.40 10^6/uL (3.5-6.1) L 02/10/17 06:00 Hgb 9.2 gm/dL (14.0-18.0) L 02/10/17 06:00 Hct 29.1 % (42.0-52.0) L 02/10/17 06:00 MCV 85.6 fL (80.0-105.0) 02/10/17 06:00 MCH 27.1 pg (25.0-35.0) 02/10/17 06:00 MCHC 31.6 g/dl (31.0-37.0) 02/10/17 06:00 RDW 16.3 % (11.5-14.5) H 02/10/17 06:00 Plt Count 173 10^3/uL (120.0-450.0) 02/10/17 06:00 MPV 10.0 fl (7.0-11.0) 02/10/17 06:00 Gran % 78.0 % (50.0-68.0) H 02/10/17 06:00 Lymph % (Auto) 13.6 % (22.0-35.0) L 02/10/17 06:00 Robertson % (Auto) 5.0 % (1.0-6.0) 02/10/17 06:00 Eos % (Auto) 3.3 % (1.5-5.0) 02/10/17 06:00 Baso % (Auto) 0.1 % (0.0-3.0) 02/10/17 06:00 Gran # 7.95 (1.4-6.5) H 02/10/17 06:00 Lymph # 1.4 (1.2-3.4) 02/10/17 06:00 Robertson # 0.5 (0.1-0.6) 02/10/17 06:00 Eos # 0.3 (0.0-0.7) 02/10/17 06:00 Baso # 0.01 K/mm3 (0.0-2.0) 02/10/17 06:00 Neutrophils % (Manual) 80 % (50.0-70.0) H 02/07/17 06:14 Band Neutrophils % 7 % (0-2) H 02/07/17 06:14 Lymphocytes % (Manual) 9 % (22.0-35.0) L 02/07/17 06:14 Monocytes % (Manual) 4 % (1.0-6.0) 02/07/17 06:14 Platelet Evaluation Normal (NORMAL) 02/07/17 06:14 Anisocytosis (manual) 1+ 02/07/17 06:14 Microcytosis (manual) Slight 02/07/17 06:14 PT 12.1 Seconds (9.9-11.8) H 02/10/17 06:00 INR 1.12 (0.93-1.08) H 02/10/17 06:00 APTT 25.6 Seconds (23.7-30.8) 02/10/17 06:00 pCO2 36 mm/Hg (35-45) 02/10/17 05:15 pO2 97.0 mm/Hg (80-100) 02/10/17 05:15 HCO3 18.5 mmol/L (21-28) L 02/10/17 05:15 ABG pH 7.32 (7.35-7.45) L 02/10/17 05:15 ABG Total CO2 19.6 mmol.L (22-28) L 02/10/17 05:15 ABG O2 Saturation 99.0 % (95-98) H 02/10/17 05:15 ABG O2 Content 13.1 ML/dl (15-23) L 02/10/17 05:15 ABG Base Excess -6.9 mmol/L (-2.0-3.0) L 02/10/17 05:15 ABG Hemoglobin 9.6 g/dL (11.7-17.4) L 02/10/17 05:15 ABG Carboxyhemoglobin 1.9 % (0.5-1.5) H 02/10/17 05:15 POC ABG HHb (Measured) 1.0 % (0-5) 02/10/17 05:15 ABG Methemoglobin 1.1 % (0.0-3.0) 02/10/17 05:15 ABG O2 Capacity 13.2 mL/dl (16-24) L 02/10/17 05:15 ABG Potassium 3.7 mmol/L (3.6-5.2) 02/07/17 18:29 VBG pH 7.33 (7.32-7.43) 02/06/17 21:18 VBG pCO2 47.0 (40-60) 02/06/17 21:18 VBG HCO3 24.8 mmol/l (21-28) 02/06/17 21:18 VBG Total CO2 26.2 mmol.L (22-28) 02/06/17 21:18 VBG O2 Sat (Calc) 69.2 % (40-65) H 02/06/17 21:18 VBG Base Excess -1.5 mmol/L (0.0-2.0) L 02/06/17 21:18 VBG Potassium 4.0 mmol/L (3.6-5.2) 02/06/17 21:18 Hgb O2 Saturation 96.0 % (95.0-98.0) 02/10/17 05:15 Sodium 143.0 mmol/L (132-148) 02/07/17 18:29 Chloride 111.0 mmol/L (98-107) H 02/07/17 18:29 Glucose 111 mg/dl (75-110) H 02/07/17 18:29 Lactate 1.0 mmol/L (0.7-2.1) 02/07/17 18:29 Mechanical Rate 20 02/07/17 18:29 FiO2 60.0 % 02/10/17 05:15 Tidal Volume 400 02/07/17 18:29 PEEP 10 02/07/17 18:29 Sodium 148 mmol/L (132-148) 02/10/17 06:00 Potassium 3.5 mmol/L (3.6-5.0) L 02/10/17 06:00 Chloride 117 mmol/L (98-107) H 02/10/17 06:00 Carbon Dioxide 21 mmol/L (21-33) 02/10/17 06:00 Anion Gap 14 (10-20) 02/10/17 06:00 BUN 64 mg/dL (7-21) H 02/10/17 06:00 Creatinine 11.1 mg/dL (0.5-1.4) H* 02/10/17 06:00 Est GFR ( Amer) 6 02/10/17 06:00 Est GFR (Non-Af Amer) 5 02/10/17 06:00 Random Glucose 107 mg/dL (70-110) 02/10/17 06:00 Hemoglobin A1c 6.5 % (4.2-6.5) 02/07/17 06:14 Calcium 8.7 mg/dL (8.4-10.5) 02/10/17 06:00 Phosphorus 4.8 mg/dL (2.5-4.5) H 02/10/17 06:00 Magnesium 1.9 mg/dL (1.7-2.2) 02/10/17 06:00 Total Bilirubin 0.7 mg/dL (0.2-1.3) 02/10/17 06:00 AST 54 U/L (15-59) 02/10/17 06:00 ALT 68 U/L (7-56) H 02/10/17 06:00 Alkaline Phosphatase 122 U/L (38-133) 02/10/17 06:00 Lactate Dehydrogenase 3017 U/L (333-699) H 02/07/17 06:14 Total Creatine Kinase 3003 U/L (35-230) H 02/07/17 06:14 CK-MB (CK-2) 55.6 ng/mL (0.0-3.6) H 02/07/17 06:14 CK-MB (CK-2) % 1.9 % (2.5-3.0) L 02/07/17 06:14 Troponin I 1.37 ng/mL H* D 02/07/17 06:14 Total Protein 5.2 g/dL (5.8-8.3) L 02/10/17 06:00 Albumin 2.3 g/dL (3.0-4.8) L 02/10/17 06:00 Globulin 2.9 gm/dL 02/10/17 06:00 Albumin/Globulin Ratio 0.8 (1.1-1.8) L 02/10/17 06:00 Lipase 248 U/L (23-300) 02/06/17 14:19 Procalcitonin 28.63 NG/ML (0.19-0.49) H 02/08/17 06:45 TSH 3rd Generation 0.5 MIU/ml (0.46-4.68) 02/07/17 06:14 Arterial Blood Potassium 3.7 mmol/L (3.6-5.2) 02/07/17 18:29 Venous Blood Potassium 4.0 mmol/L (3.6-5.2) 02/06/17 21:18 Urine Color Yellow (YELLOW) 02/06/17 15:00 Urine Appearance Clear (CLEAR) 02/06/17 15:00 Urine pH 5.5 (4.7-8.0) 02/06/17 15:00 Ur Specific [place] 1.020 (1.005-1.035) 02/06/17 15:00 Urine Protein Negative mg/dL (<30 mg/dL) 02/06/17 15:00 Urine Glucose (UA) Negative mg/dL (NEGATIVE) 02/06/17 15:00 Urine Ketones Negative mg/dL (NEGATIVE) 02/06/17 15:00 Urine Blood Trace-intact (NEGATIVE) H 02/06/17 15:00 Urine Nitrate Negative (NEGATIVE) 02/06/17 15:00 Urine Bilirubin Negative (NEGATIVE) 02/06/17 15:00 Urine Urobilinogen 0.2 E.U./dL (<1 E.U./dL) 02/06/17 15:00 Ur Leukocyte Esterase Negative Emma/uL (NEGATIVE) 02/06/17 15:00 Urine RBC 0 - 2 /hpf (0-2) 02/06/17 15:00 Urine WBC 0 - 2 /hpf (0-6) 02/06/17 15:00 Ur Epithelial Cells 0 - 2 /hpf (0-5) 02/06/17 15:00 Uric Acid Crystals Trace /hpf 02/06/17 15:00 Urine Bacteria Large (NEG) 02/06/17 15:00 Hyaline Casts 0 - 2 /hpf 02/06/17 15:00 Ur Random Creatinine 18 mg/dL 02/06/17 18:38 U Random Total Protein 5697 mg/g creat (22-128) H 02/07/17 01:01 Ur Random Sodium 43 meq/L 02/06/17 18:38 Stool Osmolality 196 mOsm 02/06/17 16:00 Stool Occult Blood Positive (NEGATIVE) H 02/06/17 16:00 Stool Leukocytes, Qual Negative (NEGATIVE) 02/06/17 16:00 Salicylates < 1 mg/dL (2.0-20.0) L 02/06/17 14:19 Urine Opiates Screen Positive (NEGATIVE) H 02/06/17 15:00 Urine Methadone Screen Negative (NEGATIVE) 02/06/17 15:00 Acetaminophen < 10.0 ug/ml (10.0-20.0) L 02/06/17 14:19 Ur Barbiturates Screen Negative (NEGATIVE) 02/06/17 15:00 Ur Phencyclidine Scrn Negative (NEGATIVE) 02/06/17 15:00 Ur Amphetamines Screen Negative (NEGATIVE) 02/06/17 15:00 U Benzodiazepines Scrn Negative (NEGATIVE) 02/06/17 15:00 U Oth Cocaine Metabols Negative (NEGATIVE) 02/06/17 15:00 U Cannabinoids Screen Negative (NEGATIVE) 02/06/17 15:00 Alcohol, Quantitative < 10 mg/dL (0-10) 02/06/17 14:19 Complement C3 114.0 mg/dL (88.0-165.0) 02/06/17 21:18 Complement C4 27.7 mg/dL (14.0-44.0) 02/06/17 21:18 Hepatitis A IgM Ab Negative (NEGATIVE) 02/07/17 06:14 Hep Bs Antigen Negative (NEGATIVE) 02/07/17 06:14 Hep B Core IgM Ab Negative (NEGATIVE) 02/07/17 06:14 Hepatitis C Antibody Reactive (NEGATIVE) H 02/07/17 06:14 HIV 1&2 Ag/Ab, 4th Gen Nonreactive (Nonreactive) 02/07/17 06:14 - Hospital Course Hospital Course: The patient is a 51 yo man with history of opiate dependence (reports a 40 bag per day heroin use) s/p multiple prior admissions to rehab facilities and non- obstructive CAD who was brought to [facility] ED by EMS s/p cardiac arrest x 4 in the field. The patient was found down in his bathroom after approximately 30 minutes from last being seen in his usual state of health. His mother had opened the bathroom door and found him face down, unresponsive on the bathroom floor. EMS was called and ACLS protocol was initiated. The patient was coded 4 times in the field and an additional 2 times in the ED. He was intubated in the field and upon arrival to the ED was promptly admitted to the ICU for continued management of multi-organ system failure, sepsis, heroin overdose and presumed anoxic brain injury. The patient's clinical status remained unchanged while on the ICU. He remained intubated, unresponsive and with fixed and dilated pupils. Dr. Nieves of neurology was consulted to evaluate for presumed anoxic brain injury and a nuclear brain scan which was obtained demonstrated finding consistent with diffuse anoxic brain injury. Jill Real was consulted from Palliative Care services and after multiple meetings with the family it was evident that no meaningful recovery could be hope for and the family opted for terminal extubation in accordance with the patient's previously mentioned wishes. As such the patient was terminally extubated and shortly thereafter. Discharge Exam - Head Exam Head Exam: ATRAUMATIC, NORMAL INSPECTION, NORMOCEPHALIC Discharge Plan - Follow Up Plan Condition: CRITICAL Disposition: WITH WITHOUT AUTOPSY Referrals: PCP,NO [Primary Care Provider] -
== END 2017-02-10 18:57 | DRG 584 ==
LOC: ED 13:59 → ERH 14:52 → CCU 16:55
PROVIDERS: ADMIT Student in an Organized Health Care Education/Training Program; ATTEND Student in an Organized Health Care Education/Training Program
PROC: 5A1955Z Respiratory Ventilation, Greater than 96 Consecutive Hours (ICD-10-PCS; principal; 2017-02-06)
PROC: 0BH17EZ Insertion of Endotracheal Airway into Trachea, Via Natural or Artificial Opening (ICD-10-PCS; 2017-02-06)
PROC: 06HY33Z Insertion of Infusion Device into Lower Vein, Percutaneous Approach (ICD-10-PCS; 2017-02-06)
PROC: B54BZZA Ultrasonography of Right Lower Extremity Veins, Guidance (ICD-10-PCS; 2017-02-06)
DX: A41.1 Sepsis due to other specified staphylococcus (principal); R65.21 Severe sepsis with septic shock; J96.01 Acute respiratory failure with hypoxia; I21.4 Non-ST elevation (NSTEMI) myocardial infarction; K72.00 Acute and subacute hepatic failure without coma; I46.9 Cardiac arrest, cause unspecified; G93.1 Anoxic brain damage, not elsewhere classified; J90 Pleural effusion, not elsewhere classified; N17.0 Acute kidney failure with tubular necrosis; J69.0 Pneumonitis due to inhalation of food and vomit; E87.2 Acidosis; F11.20 Opioid dependence, uncomplicated; E87.6 Hypokalemia; F11.90 Opioid use, unspecified, uncomplicated; N18.9 Chronic kidney disease, unspecified; L03.113 Cellulitis of right upper limb; L03.114 Cellulitis of left upper limb; B19.20 Unspecified viral hepatitis C without hepatic coma; E05.90 Thyrotoxicosis, unspecified without thyrotoxic crisis or storm; R57.0 Cardiogenic shock; T40.1X1A Poisoning by heroin, accidental (unintentional), initial encounter; G25.3 Myoclonus; I25.10 Atherosclerotic heart disease of native coronary artery without angina pectoris; I12.9 Hypertensive chronic kidney disease with stage 1 through stage 4 chronic kidney disease, or unspecified chronic kidney disease; K21.9 Gastro-esophageal reflux disease without esophagitis; L03.012 Cellulitis of left finger; Q60.0 Renal agenesis, unilateral; Z79.899 Other long term (current) drug therapy; Z87.01 Personal history of pneumonia (recurrent); Z92.21 Personal history of antineoplastic chemotherapy; Z91.013 Allergy to seafood; F17.210 Nicotine dependence, cigarettes, uncomplicated; M54.9 Dorsalgia, unspecified; S83.8X1D Sprain of other specified parts of right knee, subsequent encounter; K31.84 Gastroparesis; B95.7 Other staphylococcus as the cause of diseases classified elsewhere